=== PATIENT | female | born 1980 | race Caucasian/White ===

== ENCOUNTER 2016-09-23 11:02 | Inpatient (IN) | payer MEDICAID ==
[~2016-09-23] VITALS: Ht 167.6 cm; Wt 87.0 kg
[2016-09-23] MEDS ORDERED: HYDROCORTISONE SOD SUCC 100 MG/2ML INJ VIAL IV ONE (13:15)
[2016-09-23] MEDS ORDERED: HYDROmorphone HCL 2 MG/ML VL IV ONE ×2 (13:15→17:00)
[2016-09-23] MEDS ORDERED: ONDANSETRON HCL 4 MG/2 ML VIAL IV ONE ×2 (13:15→17:00)
[2016-09-23] MEDS ORDERED: SODIUM CHLORIDE 0.9% 1,000 ML IVB ONE (13:15)
[2016-09-23 13:21] LABS: Urine RBC None Seen /hpf (0 - 4)
[2016-09-23 13:25] LABS: Basophils # (auto) 0 uL; Basophils % (auto) 0.2 % (0.0-2.0); DEFINITIVE VIEW TRANSMISSION; Eosinophils # (auto) 0.6 uL; Hematocrit 41.6 % (36.0-46.0); Hemoglobin 13.8 g/dL (12.2-16.2); Lymphocytes # (auto) 1.6 uL; Mean Corpuscular Hemoglobin 26.4 pg (28.0-32.0); Mean Corpuscular Hgb Conc. 33.3 g/dL (32.0-36.0); Mean Corpuscular Volume 79.3 fL (80.0-100.0); Mean Platelet Volume 7.5 fL (7.4-10.4); Monocytes # (auto) 0.7 uL; Monocytes % (auto) 7.2 % (0.0-12.0); Neutrophils # (auto) 6.5 uL; Neutrophils % (auto) 69.6 % (37.0-80.0); Platelet Count (auto) 350 10^3/uL (140-450); Red Cell Distribution Width 15.5 % (11.6-16.0); White Blood Cell 9.3 10^3/uL (4.4-10.8)
[2016-09-23 13:39] LABS: INR 1.05 (0.9-1.15); Partial Thromboplastin Time 31.3 sec (22.64-33.71); Prothrombin Time 11.4 sec (9.37-12.3)
[2016-09-23 13:44] LABS: Urine Bilirubin Negative (Negative); Urine Blood Negative /uL (Negative); Urine Color Brown (Yellow); Urine Glucose Normal (Normal); Urine Mucus MANY (None Seen); Urine Nitrite Negative (Negative)
[2016-09-23 13:46] LABS: Urine Ketone 1+ (Negative)
[2016-09-23 13:47] LABS: Albumin 3.8 g/dL (3.4-5.0); BUN/Creatinine Ratio 20.9; Bilirubin, Total 0.7 mg/dL (0.2-1.0); Potassium 3.3 mmol/L (3.5-5.1); Total Protein 7.8 g/dL (6.4-8.2)
[2016-09-23] MEDS ORDERED: ONDANSETRON HCL 4 MG/2 ML VIAL ONE (16:58)
[2016-09-23] MEDS ORDERED: MORPHINE SULF INJ 2 MG/ML SYRINGE 1ML IV PRN (17:30)
[2016-09-23] MEDS ORDERED: METOCLOPRAMIDE HCL 5MG/ml INJ 2ml VIAL IV PRN (17:30)
[2016-09-23] MEDS ORDERED: ACETAMINOPHEN 325 MG TAB PO PRN (17:30)
[2016-09-23] MEDS ORDERED: HYDROcodone-ACET 5/325MG TAB PO PRN (17:30)
[2016-09-23] MEDS ORDERED: NITROGLYCERIN 0.4 MG SL TAB SL PRN (17:30)
[2016-09-23] MEDS ORDERED: DOCUSATE SOD 100 MG CAP PO PRN (17:30)
[2016-09-23] MEDS: SODIUM CHLORIDE 0.9% 1,000 ML IV SCH (19:00)
[2016-09-23 19:30] VITALS: BP 104/64
[2016-09-23] MEDS ORDERED: OXYCODONE W/ ACETAMINOPHEN 5/325MG TABLET PO PRN (20:00)
[2016-09-23] MEDS: HYDROmorphone HCL 2 MG/ML VL IV PRN (20:58)
[2016-09-23] MEDS: ONDANSETRON HCL 4 MG/2 ML VIAL IV PRN (20:58)
[2016-09-23] MEDS ORDERED: cefTRIAXone 1GM/50ML D5W 50 ML IV SCH (21:00)
[2016-09-24] MEDS: ONDANSETRON HCL 4 MG/2 ML VIAL IV PRN ×3 (01:04→09:19)
[2016-09-24] MEDS: HYDROmorphone HCL 2 MG/ML VL IV PRN ×3 (01:04→09:18)
[2016-09-24] MEDS: SODIUM CHLORIDE 0.9% 1,000 ML IV SCH (03:16)
[2016-09-24 05:00] VITALS: BP 90/55
[2016-09-24 06:50] LABS: Basophils # (auto) 0 uL; Basophils % (auto) 0.5 % (0.0-2.0); DEFINITIVE VIEW TRANSMISSION; Eosinophils # (auto) 1.1 uL; Eosinophils % (auto) 12.7 % (0.0-7.0); Hemoglobin 12.4 g/dL (12.2-16.2); Lymphocytes # (auto) 3.2 uL; Lymphocytes % (auto) 36.2 % (10.0-50.0); Mean Corpuscular Hemoglobin 26.4 pg (28.0-32.0); Mean Corpuscular Hgb Conc. 32.6 g/dL (32.0-36.0); Mean Corpuscular Volume 80.9 fL (80.0-100.0); Mean Platelet Volume 7.7 fL (7.4-10.4); Monocytes # (auto) 0.8 uL; Monocytes % (auto) 9.1 % (0.0-12.0); Neutrophils # (auto) 3.7 uL; Neutrophils % (auto) 41.5 % (37.0-80.0); Platelet Count (auto) 353 10^3/uL (140-450); Red Cell Distribution Width 15.6 % (11.6-16.0)
[2016-09-24 07:09] LABS: Albumin 2.9 g/dL (3.4-5.0); Potassium 3.5 mmol/L (3.5-5.1)
[2016-09-24 07:12] LABS: Bilirubin, Total 0.4 mg/dL (0.2-1.0); Total Protein 6.5 g/dL (6.4-8.2)
[2016-09-24 09:00] VITALS: BP 99/52
[2016-09-24] MEDS ORDERED: DOXY-216 PO (10:43)
[2016-09-24 11:36] VITALS: BP 99/52
== END 2016-09-24 13:00 | disposition home or self-care (01) | DRG 144 ==
LOC: ER 11:12 → EAST 11:13
PROVIDERS: ADMIT Internal Medicine; ATTEND Internal Medicine
DX: J20.9 Acute bronchitis, unspecified (principal); J18.9 Pneumonia, unspecified organism; M32.9 Systemic lupus erythematosus, unspecified; E27.1 Primary adrenocortical insufficiency; R56.9 Unspecified convulsions; J45.909 Unspecified asthma, uncomplicated; S83.92XA Sprain of unspecified site of left knee, initial encounter; W18.30XA Fall on same level, unspecified, initial encounter; Y93.01 Activity, walking, marching and hiking; S80.02XA Contusion of left knee, initial encounter; X58.XXXA Exposure to other specified factors, initial encounter; R91.1 Solitary pulmonary nodule; M79.7 Fibromyalgia; Z81.8 Family history of other mental and behavioral disorders; Z82.62 Family history of osteoporosis; Z82.49 Family history of ischemic heart disease and other diseases of the circulatory system; Z84.89 Family history of other specified conditions; Z83.49 Family history of other endocrine, nutritional and metabolic diseases; Z88.2 Allergy status to sulfonamides; Z88.8 Allergy status to other drugs, medicaments and biological substances; Y92.89 Other specified places as the place of occurrence of the external cause; Y99.8 Other external cause status
CPT/HCPCS: 36415; 71010; 73562; 74176; 80053; 81001; 81025; 82150; 82962; 83605; 83690; 83735; 85025; 85610; 85730; 87040; 94761; 96361; 96372; 96374; 96375; J0696; J2405

== ENCOUNTER 2016-10-20 10:09 | Emergency (ER) | payer MEDICAID ==
[~2016-10-20] VITALS: Ht 167.6 cm; Wt 88.5 kg
[~2016-10-20 10:09] MED LIST: DOXY-216 PO
[2016-10-20 10:44] LABS: Basophils # (auto) 0 uL; Basophils % (auto) 0.4 % (0.0-2.0); CONDITION AutoValidated; DEFINITIVE SEE PRINTOUT; Eosinophils # (auto) 0.3 uL; Eosinophils % (auto) 4.8 % (0.0-7.0); Hematocrit 39.5 % (36.0-46.0); Hemoglobin 13.2 g/dL (12.2-16.2); Lymphocytes # (auto) 1.6 uL; Lymphocytes % (auto) 28.1 % (10.0-50.0); Mean Corpuscular Hemoglobin 26.8 pg (28.0-32.0); Mean Corpuscular Hgb Conc. 33.4 g/dL (32.0-36.0); Mean Platelet Volume 7.6 fL (7.4-10.4); Monocytes # (auto) 0.6 uL; Monocytes % (auto) 9.8 % (0.0-12.0); Neutrophils # (auto) 3.2 uL; Neutrophils % (auto) 56.9 % (37.0-80.0); Platelet Count (auto) 306 10^3/uL (140-450); Red Cell Distribution Width 17.1 % (11.6-16.0); White Blood Cell 5.6 10^3/uL (4.4-10.8)
[2016-10-20 11:13] VITALS: BP 115/69
[2016-10-20 11:14] LABS: Albumin 3.3 g/dL (3.4-5.0); BUN/Creatinine Ratio 14.5; Bilirubin, Total 0.4 mg/dL (0.2-1.0); Calcium 8.4 mg/dL (8.5-10.1); Magnesium 2.4 mg/dL (1.6-2.6); Potassium 3.2 mmol/L (3.5-5.1); Total Protein 6.5 g/dL (6.4-8.2)
[2016-10-20] MEDS ORDERED: POTASSIUM CHL 10% (20 MEQ/15ML) ORAL SOLN PO ONE (11:30)
[2016-10-20] MEDS ORDERED: LIDOCAINE 1% HCL (LOCAL ANESTH.) INJ 20ML MDV ONE (11:48)
[2016-10-20] MEDS ORDERED: LIDOCAINE HCL 1 % PF INJ 2ML AMP IJ ONE (12:00)
[2016-10-20] MEDS ORDERED: HYDROmorphone HCL 2 MG/ML VL IM ONE (12:15)
[2016-10-20] MEDS ORDERED: ONDANSETRON HCL 4 MG/2 ML VIAL IM ONE (12:15)
[2016-10-20] MEDS ORDERED: LIDOCAINE 1% HCL (LOCAL ANESTH.) INJ 20ML MDV IJ ONE (12:15)
== END 2016-10-20 13:14 | disposition home or self-care (01) ==
LOC: EDBD 10:09 → ER 10:12
DX: S41.112A Laceration without foreign body of left upper arm, initial encounter (principal); M32.9 Systemic lupus erythematosus, unspecified; Z88.8 Allergy status to other drugs, medicaments and biological substances; Z88.1 Allergy status to other antibiotic agents; R55 Syncope and collapse; Z79.899 Other long term (current) drug therapy; Z90.49 Acquired absence of other specified parts of digestive tract; R53.1 Weakness; W18.39XA Other fall on same level, initial encounter; Y93.89 Activity, other specified; Y99.8 Other external cause status; Y92.89 Other specified places as the place of occurrence of the external cause
CPT/HCPCS: 12002; 36415; 70450; 73060; 80053; 83735; 84484; 85025; 93005; 96372; 99285; J1170; J2001; J2405

== ENCOUNTER 2017-01-28 21:02 | Emergency (ER) | payer MEDICAID ==
[~2017-01-28] VITALS: Ht 167.6 cm; Wt 86.2 kg
[2017-01-28] MEDS ORDERED: ONDANSETRON HCL 4 MG/2 ML VIAL IV ONE ×2 (21:45→23:00)
[2017-01-28] MEDS ORDERED: SODIUM CHLORIDE 0.9% 1,000 ML IV ONE (21:45)
[2017-01-28] MEDS ORDERED: HYDROmorphone HCL 2 MG/ML VL IV ONE ×2 (21:45→23:00)
[2017-01-28 21:52] LABS: Basophils # (auto) 0 uL; Basophils % (auto) 0.3 % (0.0-2.0); Eosinophils # (auto) 0.2 uL; Eosinophils % (auto) 2.4 % (0.0-7.0); Hematocrit 46.1 % (36.0-46.0); Hemoglobin 15.1 g/dL (12.2-16.2); Lymphocytes # (auto) 2.5 uL; Lymphocytes % (auto) 27.4 % (10.0-50.0); Mean Corpuscular Hemoglobin 27.9 pg (28.0-32.0); Mean Corpuscular Hgb Conc. 32.8 g/dL (32.0-36.0); Mean Corpuscular Volume 85.2 fL (80.0-100.0); Mean Platelet Volume 8.2 fL (6.9-10.8); Monocytes # (auto) 0.7 uL; Neutrophils # (auto) 5.8 uL; Neutrophils % (auto) 61.9 % (37.0-80.0); Nucleated Red Blood Cells % 0.1 %; Platelet Count (auto) 351 10^3/uL (140-450); Red Cell Distribution Width 17.4 % (11.8-14.3); White Blood Cell 9.3 10^3/uL (4.4-10.8)
[2017-01-28 21:58] LABS: INR 0.98 (0.9-1.15); Prothrombin Time 10.7 sec (9.37-12.3)
[2017-01-28 22:10] LABS: B-Type Natriuretic Peptide 6.6 pg/mL (0-100); Temperature: 22.4 C (20.0-25.0)
[2017-01-28 22:31] LABS: Albumin 4.1 g/dL (3.4-5.0); Anion Gap 9 (5-15); Blood Urea Nitrogen 13 mg/dL (7-18); Calcium 9.2 mg/dL (8.5-10.1); Carbon Dioxide 26 mmol/L (21-32); Chloride 108 mmol/L (98-107); Glucose 87 mg/dL (74-106); Magnesium 2.5 mg/dL (1.6-2.6); Potassium 4.2 mmol/L (3.5-5.1); Sodium 143 mmol/L (136-145)
[2017-01-28 22:43] LABS: Alkaline Phosphatase 53 U/L (45-117); Aspartate Aminotransferase 15 U/L (15-37); BUN/Creatinine Ratio 18.6; Bilirubin, Total 0.5 mg/dL (0.2-1.0); GFR African American 121 mL/min; GFR Non-African American 100 mL/min; Total Protein 7.5 g/dL (6.4-8.2)
[2017-01-28] MEDS ORDERED: ONDANSETRON HCL 4 MG/2 ML VIAL ONE (22:54)
[2017-01-28] MEDS ORDERED: HYDROmorphone HCL 2 MG/ML VL ONE (22:54)
[2017-01-29 02:00] LABS: Urine Bilirubin Negative (Negative); Urine Blood Negative /uL (Negative); Urine Color Yellow (Yellow); Urine Glucose Normal (Normal); Urine Ketone Negative (Negative); Urine Mucus MODERATE (None Seen); Urine Nitrite Negative (Negative); Urine RBC 1 /hpf (0 - 4); Urine Squamous Epithelial Cell MOD /hpf (<5); Urine Urobilinogen Normal (Negative)
[2017-01-29 02:10] VITALS: BP 133/72
== END 2017-01-29 02:31 | disposition left against medical advice (07) ==
LOC: ER 21:02
DX: S41.111A Laceration without foreign body of right upper arm, initial encounter (principal); R55 Syncope and collapse; F19.10 Other psychoactive substance abuse, uncomplicated; J45.909 Unspecified asthma, uncomplicated; Z90.49 Acquired absence of other specified parts of digestive tract; Z88.2 Allergy status to sulfonamides; Z87.11 Personal history of peptic ulcer disease; Z53.29 Procedure and treatment not carried out because of patient's decision for other reasons
CPT/HCPCS: 36415; 74176; 80053; 80307; 81001; 83690; 83735; 83880; 84443; 84484; 84702; 85025; 85610; 85730; 93005; 96361; 96374; 96375; 96376; 99285; J1170; J2405; J7030

== ENCOUNTER 2024-11-30 11:14 | Inpatient (IN) | payer MEDICAID ==
[~2024-11-30] VITALS: Ht 167.6 cm; Wt 94.0 kg
[~2024-11-30 11:14] MED LIST changes: -DOXY-216 PO; +DOXY-286 PO
--- NOTE | 2024-11-30 12:30 | ED.PDOC ---
General HPI Comments 44y F who presents to the ED for chief complaint of hematuria. Pt states she has been having hematuria with associated blood clots for the past 2x days. Pt states she has noted increased pain with associated dysuria, and frequency today and came to the ED for further evaluation. Pt in the ED, has noted LLQ pain radiating the L lower pelvic area. Pt rates the pain 10/10 and in noted distress. Pt otherwise denies any other symptoms. Pt is noted to be tachycardic at 124 and noted BP of 156/75 but otherwise stable vitals. Pt has noted autoimmune history including SLE, polymyalgia, and fibromyalgia. Chief Complaint: Urinary Time Seen by MD: 11:33 Primary Care Provider: DR Crispin ADKINS Reviewed notes: Medications, Allergies Allergies: Coded Allergies: Ciprofloxacin (Verified Allergy, Unknown, 11/30/24) Diphenhydramine (Verified Allergy, Unknown, 05/13/14) Hydroxychloroquine (Verified Allergy, Unknown, 05/13/14) Prochlorperazine (Verified Allergy, Unknown, 05/13/14) Sulfa Antibiotics (Verified Allergy, Unknown, 05/13/14) Uncoded Allergies: ANTIEMETICS (Allergy, Severe, 11/30/24) Home Meds Active Scripts Doxycycline Hyclate (DOXYCYCLINE HYCLATE) 100 Mg Tab, 1 TAB PO BID, #14 TAB Prov:ISRAEL JOSEPH MD 09/24/16 Information Source: Patient Mode of Arrival: Ambulatory Brought in by: self Past Medical History PAST MEDICAL HISTORY: Anxiety, Asthma, PUD, Seizures Surgical History: Cholecystectomy 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 History Family History Family History: No family hx of HTN, Unobtainable Social History Smoker: Non-Smoker Alcohol: Denies ETOH Use Drugs: Denies Drug Use Lives In: Home Constitutional: denies: chills, diaphoresis, fatigue, fever, malaise, sweats, weakness, others EENTM: denies: blurred vision, double vision, ear bleeding, ear discharge, ear drainage, ear pain, ear ringing, eye pain, eye redness, hearing loss, mouth pain, mouth swelling, nasal discharge, nose bleeding, nose congestion, nose pain, photophobia, tearing, throat pain, throat swelling, voice changes, others Respiratory: denies: cough, hemoptysis, orthopnea, SOB at rest, shortness of breath, SOB with excertion, stridor, wheezing, others Cardiovascular: denies: chest pain, dizzy spells, diaphoresis, Dyspnea on exertion, edema, irregular heart beat, left arm pain, lightheadedness, palpitations, PND, syncope, others Gastrointestinal: denies: abdomen distended, abdominal pain, blood streaked bowels, constipated, diarrhea, dysphagia, difficulty swallowing, hematemesis, melena, nausea, poor appetite, poor fluid intake, rectal bleeding, rectal pain, vomiting, others Genitourinary: reports: hematuria; denies: abnormal vagina bleeding, burning, dyspareunia, dysuria, flank pain, frequency, incontinence, pain, , vagina discharge, urgency, others Neurological: denies: dizziness, fainting, headache, left sided numbness, left sided weakness, numbness, paresthesia, pre-existing deficit, right sided numbness, right sided weakness, seizure, speech problems, tingling, tremors, weakness, others Musculoskeletal: denies: back pain, gout, joint pain, joint swelling, muscle pain, muscle stiffness, neck pain, others Integumetry: denies: bruises, change in color, change in hair/nails, dryness, laceration, lesions, lumps, rash, wounds, others Allergic/Immunocompromised: denies: Difficulty Healing, Frequent Infections, Hives, Itching, others Hematologic/Lymphatic: denies: anemia, blood clots, easy bleeding, easy bruising, swollen glands, others Endocrine: denies: excessive hunger, excessive sweating, excessive thirst, excessive urination, flushing, intolerance to cold, intolerance to heat, unexplained weight gain, unexplained weight loss, others Psychiatric: denies: anxiety, bipolar disorder, depression, hopeless, panic disorder, schizophrenia, sleepless, suicidal, others All Other Systems: Reviewed and Negative Physical Exam General Appearance: Moderate Distress HEENT: Normal ENT Inspection, Pharynx Normal, TMs Normal Neck: Full Range of Motion, Non-Tender, Normal, Normal Inspection Respiratory: Lungs Clear Cardiovascular: No Edema, No JVD, No Murmur, No Gallop, Normal Peripheral Pulses, Regular Rate/Rhythm Breast Exam: Deferred Gastrointestinal: Tenderness (LLQ tender to palpation, diffuse abdominal tenderness), Other Genitalia: Deferred Pelvic: Deferred Rectal: Deferred Extremities: No calf tenderness, Normal capillary refill, Normal inspection, Normal range of motion, Non-tender, No pedal edema Musculoskeletal : Apperance: Normal Neurologic: Alert, 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 Was a procedure done?: No Differential Diagnosis Kidney stone (Female): Musculoskeletal pain, Pyelonephritis, Strain, Urolithia sis Urinary Problem (Female): Pyelonephritis, Urinary retention, Urolithiasis, UTI, Other (hydronephrosis) X-Ray, Labs, Meds, VS Vital Signs Date Time Temp Pulse Resp B/P (MAP) Pulse Ox O2 Delivery O2 Flow Rate FiO2 11/30/24 11:28 99.7 124 16 156/75 (102) 97 99.7 Lab Test 11/30/24 12:46 11/30/24 11:15 Range/Units White Blood Count 9.8 4.4-10.8 10^3/uL Red Blood Count 5.40 H 4.0-5.20 10^6/uL Hemoglobin 14.8 12.2-16.2 g/dL Hematocrit 45.2 36.0-46.0 % Mean Corpuscular Volume 83.6 80.0-100.0 fL Mean Corpuscular Hemoglobin 27.4 L 28.0-32.0 pg Mean Corpuscular Hemoglobin Concent 32.8 32.0-36.0 g/dL Red Cell Distribution Width 17.0 H 11.8-14.3 % Platelet Count 310 140-450 10^3/uL Mean Platelet Volume 8.5 6.9-10.8 fL Neutrophils (%) (Auto) 56.4 37.0-80.0 % Lymphocytes (%) (Auto) 30.5 10.0-50.0 % Monocytes (%) (Auto) 7.2 0.0-12.0 % Eosinophils (%) (Auto) 5.4 0.0-7.0 % Basophils (%) (Auto) 0.5 0.0-2.0 % Neutrophils # (Auto) 5.5 1.6-8.6 10 ^3/uL Lymphocytes # (Auto) 3.0 0.4-5.4 10 ^3/uL Monocytes # (Auto) 0.7 0-1.3 10 ^3/uL Eosinophils # (Auto) 0.5 0-0.8 10 ^3/uL Basophils # (Auto) 0 0-0.2 10 ^3/uL Nucleated Red Blood Cells 0.2 % Sodium Level 142 136-145 mmol/L Potassium Level 4.0 3.5-5.1 mmol/L Chloride Level 106 98-107 mmol/L Carbon Dioxide Level 26 20-31 mmol/L Anion Gap 10 5-15 Blood Urea Nitrogen 19 9-23 mg/dL Creatinine 0.69 0.550-1.02 mg/dL Glomerular Filtration Rate Calc 109 >90 mL/min BUN/Creatinine Ratio 27.5 H 10.0-20.0 Serum Glucose 94 74-106 mg/dL Calcium Level 10.1 8.7-10.4 mg/dL Urine Color Red H Yellow Urine Clarity Cloudy H Clear Urine pH 7.5 5.0-9.0 Urine Specific [place] 1.030 1.001-1.035 Urine Protein 2+ H Negative Urine Ketones Negative Negative Urine Blood 3+ H Negative /uL Urine Nitrite Negative Negative Urine Bilirubin Negative Negative Urine Urobilinogen Normal Negative mg/dL Urine Leukocyte Esterase 1+ Negative /uL Urine RBC 25703 0 - 4 /hpf Urine Microscopic WBC 14 H 0-5 /HPF Urine Squamous Epithelial Cells Mod <5 /hpf Urine Bacteria Few H None Seen /hpf Urine Glucose Normal Normal mg/dL Urine Test Negative Negative Current Medications Medications (Trade) Dose Ordered Sig/Emerson Route Start Time Stop Time Status Last Admin Hydrocortisone Sodium Succinate (Solu-CORTEF INJECTION) 100 mg ONCE ONCE IV 11/30/24 12:30 11/30/24 12:31 DC 11/30/24 13:33 Hydromorphone HCl (Dilaudid Tablet) 2 mg ONCE ONCE PO 11/30/24 12:30 11/30/24 12:31 DC 11/30/24 13:24 Ondansetron HCl (Zofran Po) 4 mg ONCE ONCE PO 11/30/24 12:30 11/30/24 12:31 DC 11/30/24 13:24 Sodium Chloride 1,800 ml @ 1,800 mls/hr ONCE ONCE IV 11/30/24 13:30 11/30/24 14:29 DC 11/30/24 14:16 Hydromorphone HCl (Dilaudid Tablet) 2 mg ONCE ONCE PO 11/30/24 13:45 11/30/24 13:46 DC 11/30/24 13:[address] [address] Ph: [phone] DIAGNOSTIC IMAGING Diagnostic Imaging Report : [id number] Signed PATIENT: LEILANI POLLACK EACCT: [id number] UNIT: [id number] : 1980 LOC: ER ROOM / BED: / AGE / SEX: 44 / F ADM STATUS: REG ER SERVICE 1217 ORDERING PHYSICIAN: ANDREAS SHAY MD PROCEDURE(s): ABPL - CT AB PEL WO CON-NO ORAL OR IV REASON: left flank pain, hematuria ORDER NUMBER(s): [id number], ACCESSION NUMBER(s): [id number] CT CT AB PEL WO CON-NO ORAL OR IV INDICATION: left flank pain, hematuria EXAM DATE: 11/30/2024 02:58 PM COMPARISON: None RADIATION DOSE: CTDIvol: 17 mGy, DLP: 1060 mGy*cm PROCEDURE: Helical CT images were obtained of the abdomen and pelvis without IV contrast Sagittal and coronal reconstructions are provided. ORAL CONTRAST: None. ADDITIONAL IMAGES / REFORMATS: None All CT scans at this medical facility are performed using dose modulation techniques as appropriate to a performed exam including the following: Automated exposure control was utilized; adjustment of the MA and/or KV according to patient size; and use of iterative reconstruction technique. FINDINGS: LUNG BASE: Normal. LIVER: Normal. GALLBLADDER AND BILIARY TREE: Cholecystectomy clips. No intra- or extrahepatic biliary ductal dilation. PANCREAS: Normal. SPLEEN: Normal. BOWEL: Normal. Normal appendix. ADRENALS: Normal. KIDNEYS AND URETER: Normal. BLADDER: Normal. REPRODUCTIVE ORGANS: Normal. LYMPH NODES:No lymphadenopathy. PERITONEUM: No ascites or free air. No other fluid collection. VESSELS: Scattered atherosclerotic calcifications are noted. RETROPERITONEUM: Normal. ABDOMINAL WALL: Normal. BONES: Scattered osseous degenerative changes are noted. IMPRESSION: No acute intraabdominal abnormality. No kidney stones are seen. ATED BY: ESTIVEN WILLARD MD DICTATED DATE/TIME: 11/30/241534 SIGNED BY: ESTIVEN WILLARD MD SIGNED DATE/TIME: 11/30/241534 CC: Time of 1ST Reevaluation: 16:11 Reevaluation 1ST: Improved Patient Education/Counseling: Diagnosis, Treatment, Prognosis, Need For Follow Up Family Education/Counseling: No Family Present Comments pt does not have evidence of pyelnephritis or stones on ct. however, her contaminated UA shows possible uti. she continues to have pain and is unable to keep oral intake, including her hydrocortisone for adrenal insufficiency. she will be admitted for ivf, control of nausea and pain and preventing adrenal crisis SEPSIS Sepsis Screen Date sepsis recognized/suspect: Nov 30, 2024 Time Sepsis recognized/suspect: 1113 Recent Procedure: No On Antibiotic Therapy: No Respiratory Rate >20: No Heart Rate >90: Yes Temp<36 C (96.8 F) or >38.3 C: No SBP <90 or MAP <65 mmHG: No New Acute Mental Status Change: No Is the patient on CPAP, BIPAP,: No Physician Orders Ct Ab Pel Wo Con-No Oral Or Iv (11/30/24 12:17) Insert Midline (11/30/24 13:54) Vital Signs Date Time Temp Pulse Resp B/P (MAP) Pulse Ox O2 Delivery O2 Flow Rate FiO2 11/30/24 11:28 99.7 124 16 156/75 (102) 97 99.7 Laboratory Tests Test 11/30/24 12:46 White Blood Count 9.8 10^3/uL (4.4-10.8) Medications Medications Dose Ordered Sig/Emerson Route Start Time Stop Time Status Last Admin Dose Admin Hydrocortisone Sodium Succinate 100 mg ONCE ONCE IV 11/30/24 12:30 11/30/24 12:31 DC 11/30/24 13:33 Hydromorphone HCl 2 mg ONCE ONCE PO 11/30/24 12:30 11/30/24 12:31 DC 11/30/24 13:24 Hydromorphone HCl 2 mg ONCE ONCE PO 11/30/24 13:45 11/30/24 13:46 DC 11/30/24 13:51 Ondansetron HCl 4 mg ONCE ONCE PO 11/30/24 12:30 11/30/24 12:31 DC 11/30/24 13:24 Sodium Chloride 1,800 ml @ 1,800 mls/hr ONCE ONCE IV 11/30/24 13:30 11/30/24 14:29 DC 11/30/24 14:16 Departure 1 Departure Time of Disposition: 16:12 Impression: Primary Impression: Intractable nausea and vomiting Additional Impressions: Intractable pain Hemorrhagic cystitis Adrenal insufficiency Disposition: ADMITTED INPATIENT Admit to: Med Surg Condition: Serious Discharged With: Self Critical Care Note Critical Care Time?: Yes (55 min-critical care time only) Critical care comment: Due to concerns for patients condition deteriorating, the care required my highest level of attention and readiness to intervene. I assessed the patient, reviewed the medical records, ordered the appropriate tests and treatments, then reassessed for results and responsiveness. I communicated with medical personnel and consultants and formulated a plan of care. Total critical care time excludes any procedures Stability Stability form required: No Heart Score Heart Score: Heart Score Response (Comments) Value History N/A 0 EKG N/A 0 Age N/A 0 Risk Factors N/A 0 Troponin N/A 0 Total 0 I personally scribed for ANDREAS SHAY MD ([email or web address]) on 11/30/24 at 12:30. Electronically submitted by Lizzie Mcguire ([email or web address]). I personally scribed for ANDREAS SHAY MD ([email or web address]) on 11/30/24 at 12:31. Electro nically submitted by Lizzie Mcguire ([email or web address]). I personally scribed for ANDREAS SHAY MD ([email or web address]) on 11/30/24 at 16:07. Erum ctronically submitted by Lizzie Mcguire ([email or web address]). ANDREAS SHAY MD Nov 30, 2024 12:30
[2024-11-30 13:01] LABS: Hematocrit 45.2 % (36.0-46.0); Hemoglobin 14.8 g/dL (12.2-16.2); Mean Corpuscular Hemoglobin 27.4 pg (28.0-32.0); Mean Corpuscular Volume 83.6 fL (80.0-100.0); Nucleated Red Blood Cells % 0.2 %
[2024-11-30 13:10] LABS: Chloride 106 mmol/L (98-107); Potassium 4.0 mmol/L (3.5-5.1); Sodium 142 mmol/L (136-145)
[2024-11-30 13:11] LABS: Anion Gap 10 (5-15); Calcium 10.1 mg/dL (8.7-10.4); Carbon Dioxide 26 mmol/L (20-31)
[2024-11-30 13:16] LABS: BUN/Creatinine Ratio 27.5 (10.0-20.0); Blood Urea Nitrogen 19 mg/dL (9-23); Glucose 94 mg/dL (74-106)
[2024-11-30] MEDS: ONDANSETRON ODT 4 MG TAB PO ONE (13:24)
[2024-11-30] MEDS: HYDROCORTISONE SOD SUCC 100 MG/2ML INJ VIAL IV ONE (13:33)
[2024-11-30] MEDS: SODIUM CHLORIDE 0.9% 1,800 ML IV ONE (14:16)
[2024-11-30 14:35] LABS: Urine Protein, UAD 2+ (Negative)
--- NOTE | 2024-11-30 15:37 | DVH ---
CT CT AB PEL WO CON-NO ORAL OR IV INDICATION: left flank pain, hematuria EXAM DATE: 11/30/2024 02:58 PM COMPARISON: None RADIATION DOSE: CTDIvol: 17 mGy, DLP: 1060 mGy*cm PROCEDURE: Helical CT images were obtained of the abdomen and pelvis without IV contrast Sagittal and coronal reconstructions are provided. ORAL CONTRAST: None. ADDITIONAL IMAGES / REFORMATS: None All C T scans at this medical facility are performed using dose modulation techniques as appropriate to a p erformed exam including the following: Automated exposure control was utilized; adjustment of the MA and/or KV according to patient size; and use of iterative reconstruction technique. FINDINGS: LUNG BASE: Normal. LIVER: Normal. GALLBLADDER AND BILIARY TREE: Cholecystectomy clips. No intra- or extrahepatic biliary ductal dilatio n. PANCREAS: Normal. SPLEEN: Normal. BOWEL: Normal. Normal appendix. ADRENALS: Normal. KIDNEYS AND URETER: Normal. BLADDER: Normal. REPRODUCTIVE ORGANS: Normal. LYMPH NODES:No lymphadenopathy. PERITONEUM: No ascites or free air. No other fluid collection. VESSELS: Scattered atherosclerotic calcifications are noted. RETROPERITONEUM: Normal. ABDOMINAL WALL: Normal. BONES: Scattered osseous degenerative changes are noted. IMPRESSION: No acute intraabdominal abnormality. No kidney stones are seen.
[2024-11-30 17:00] VITALS: PULSE 89; RESP 20; O2SAT 98
[2024-11-30] MEDS ORDERED: DOCUSATE SOD 100 MG CAP PO PRN (18:30)
[2024-11-30] MEDS ORDERED: KETOROLAC TROMETH 30 MG/ML 1ML VIAL IV PRN (18:30)
[2024-11-30] MEDS ORDERED: ACETAMINOPHEN 325 MG TAB PO PRN ×2 (18:30)
--- NOTE | 2024-11-30 18:36 | DVHHP2 ---
Admitting Diagnosis: Intractable nausea and vomiting History of Present Illness 44y F who presents to the ED for chief complaint of hematuria. Pt states she has been having hematuria with associated blood clots for the past 2x days. Pt states she has noted increased pain with associated dysuria, and frequency today and came to the ED for further evaluation. Pt in the ED, has noted LLQ pain radiating the L lower pelvic area. Pt rates the pain 10/10 and in noted dis tress. Pt otherwise denies any other symptoms. Pt is noted to be tachycardic at 124 and noted BP of 156/75 but otherwise stable vitals. Pt has noted autoimmune history including SLE, polymyalgia, and fibromyalgia. 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 History Family History Family History: No family hx of HTN, Unobtainable Social History Smoker: Non-Smoker Alcohol: Denies ETOH Use Drugs: Denies Drug Use Lives In: Home Patient Family History: Family history: Autoimmune disease (situation) G8 MOTHER Family history: Blood disorder G8 MOTHER G8 FATHER Family history: Cardiovascular disease G8 MOTHER Family history: Depression (situation) G8 MOTHER Family history: Osteoporosis G8 MOTHER Family history: Thyroid disorder G8 MOTHER G8 FATHER Allergies: Coded Allergies: Ciprofloxacin (Verified Allergy, Unknown, 11/30/24) Diphenhydramine (Verified Allergy, Unknown, 05/13/14) Hydroxychloroquine (Verified Allergy, Unknown, 05/13/14) Prochlorperazine (Verified Allergy, Unknown, 05/13/14) Sulfa Antibiotics (Verified Allergy, Unknown, 05/13/14) Uncoded Allergies: ANTIEMETICS (Allergy, Severe, 11/30/24) Home Meds Active Scripts Doxycycline Hyclate (DOXYCYCLINE HYCLATE) 100 Mg Tab, 1 TAB PO BID, #14 TAB Prov:ISRAEL JOSEPH MD 09/24/16 Vital Signs Vital Signs Date Time Temp Pulse Resp B/P (MAP) Pulse Ox O2 Delivery O2 Flow Rate FiO2 11/30/24 11:28 99.7 124 16 156/75 (102) 97 99.7 Physical Exam 44 years old woman, overweight, sitting on chair. Mild distress HEENT-atraumatic, normocephalic Heart-sinus tachycardic Lungs clear to auscultate bilaterally Abdomen soft diffuse tender lower abdomen, nondistended musculoskeletal-no edema cyanosis Neuro-AO x3, no focal deficits SEPSIS Sepsis Screen Date sepsis recognized/suspect: Nov 30, 2024 Time Sepsis recognized/suspect: 1113 Recent Procedure: No On Antibiotic Therapy: No Respiratory Rate >20: No Heart Rate >90: Yes Temp<36 C (96.8 F) or >38.3 C: No SBP <90 or MAP <65 mmHG: No New Acute Mental Status Change: No Is the patient on CPAP, BIPAP,: No Physician Orders Ct Ab Pel Wo Con-No Oral Or Iv (11/30/24 12:17) Insert Midline (11/30/24 13:54) Hydromorphone Tablet (Dilaudid Tablet) (11/30/24 18:30) Ketorolac Injection (Toradol Injection) (11/30/24 18:30) Acetaminophen Tablet (Tylenol Tablet) (11/30/24 18:30) Ceftriaxone Ivpb Rocephin (11/30/24 18:30) Urine Bacterial Culture (11/30/24 18:27) Admit (11/30/24 18:27) Code Status (11/30/24 18:27) Vital Signs .PER UNIT PROTOCOL (11/30/24 18:27) Review Orders With Adm. (11/30/24 18:27) Encourage Activity As Tolerate (11/30/24 18:27) Regular Diet (11/30/24 Dinner) Sodium Chloride Lock (Saline Lock Ns) (11/30/24 22:00) Docusate Sodium Capsule (Colace Capsule) (11/30/24 18:30) Acetaminophen Tablet (Tylenol Tablet) (11/30/24 18:30) Notify Md Of Changes From Base (11/30/24 18:27) Advance Directive (11/30/24 18:27) Patient Condition (11/30/24 18:27) Allergies (11/30/24 18:27) Ondansetron Hcl (Zofran) (11/30/24 18:30) Lovenox 40mg (12/01/24 10:00) Comprehensive Metabolic Panel (12/01/24 05:00) Comprehensive Metabolic Panel (12/02/24 05:00) Comprehensive Metabolic Panel (12/03/24 05:00) Comprehensive Metabolic Panel (12/04/24 05:00) Comprehensive Metabolic Panel (12/05/24 05:00) Complete Blood Count (12/01/24 05:00) Complete Blood Count (12/02/24 05:00) Complete Blood Count (12/03/24 05:00) Complete Blood Count (12/04/24 05:00) Complete Blood Count (12/05/24 05:00) Vital Signs Date Time Temp Pulse Resp B/P (MAP) Pulse Ox O2 Delivery O2 Flow Rate FiO2 11/30/24 11:28 99.7 124 16 156/75 (102) 97 99.7 Laboratory Tests Test 11/30/24 12:46 White Blood Count 9.8 10^3/uL (4.4-10.8) Medications Medications Dose Ordered Sig/Emerson Route Start Time Stop Time Status Last Admin Dose Admin Hydrocortisone Sodium Succinate 100 mg ONCE ONCE IV 11/30/24 12:30 11/30/24 12:31 DC 11/30/24 13:33 Hydromorphone HCl 2 mg ONCE ONCE PO 11/30/24 12:30 11/30/24 12:31 DC 11/30/24 13:24 Hydromorphone HCl 2 mg ONCE ONCE PO 11/30/24 13:45 11/30/24 13:46 DC 11/30/24 13:51 Ondansetron HCl 4 mg ONCE ONCE PO 11/30/24 12:30 11/30/24 12:31 DC 11/30/24 13:24 Sodium Chloride 1,800 ml @ 1,800 mls/hr ONCE ONCE IV 11/30/24 13:30 11/30/24 14:29 DC 11/30/24 14:16 Results Labs Test 11/30/24 12:46 11/30/24 11:15 Range/Units White Blood Count 9.8 4.4-10.8 10^3/uL Red Blood Count 5.40 H 4.0-5.20 10^6/uL Hemoglobin 14.8 12.2-16.2 g/dL Hematocrit 45.2 36.0-46.0 % Mean Corpuscular Volume 83.6 80.0-100.0 fL Mean Corpuscular Hemoglobin 27.4 L 28.0-32.0 pg Mean Corpuscular Hemoglobin Concent 32.8 32.0-36.0 g/dL Red Cell Distribution Width 17.0 H 11.8-14.3 % Platelet Count 310 140-450 10^3/uL Mean Platelet Volume 8.5 6.9-10.8 fL Neutrophils (%) (Auto) 56.4 37.0-80.0 % Lymphocytes (%) (Auto) 30.5 10.0-50.0 % Monocytes (%) (Auto) 7.2 0.0-12.0 % Eosinophils (%) (Auto) 5.4 0.0-7.0 % Basophils (%) (Auto) 0.5 0.0-2.0 % Neutrophils # (Auto) 5.5 1.6-8.6 10 ^3/uL Lymphocytes # (Auto) 3.0 0.4-5.4 10 ^3/uL Monocytes # (Auto) 0.7 0-1.3 10 ^3/uL Eosinophils # (Auto) 0.5 0-0.8 10 ^3/uL Basophils # (Auto) 0 0-0.2 10 ^3/uL Nucleated Red Blood Cells 0.2 % Sodium Level 142 136-145 mmol/L Potassium Level 4.0 3.5-5.1 mmol/L Chloride Level 106 98-107 mmol/L Carbon Dioxide Level 26 20-31 mmol/L Anion Gap 10 5-15 Blood Urea Nitrogen 19 9-23 mg/dL Creatinine 0.69 0.550-1.02 mg/dL Glomerular Filtration Rate Calc 109 >90 mL/min BUN/Creatinine Ratio 27.5 H 10.0-20.0 Serum Glucose 94 74-106 mg/dL Calcium Level 10.1 8.7-10.4 mg/dL Urine Color Red H Yellow Urine Clarity Cloudy H Clear Urine pH 7.5 5.0-9.0 Urine Specific [place] 1.030 1.001-1.035 Urine Protein 2+ H Negative Urine Ketones Negative Negative Urine Blood 3+ H Negative /uL Urine Nitrite Negative Negative Urine Bilirubin Negative Negative Urine Urobilinogen Normal Negative mg/dL Urine Leukocyte Esterase 1+ Negative /uL Urine RBC 64232 0 - 4 /hpf Urine Microscopic WBC 14 H 0-5 /HPF Urine Squamous Epithelial Cells Mod <5 /hpf Urine Bacteria Few H None Seen /hpf Urine Glucose Normal Normal mg/dL Urine Test Negative Negative Primary Diagnosis Acute cystitis Diffuse body pain 2' Diagnosis/Comorbidities SLE, polymyalgia, and fibromyalgia. Plan Start ceftriaxone 1 g daily. Check urine culture IV fluids Patient takes Dilaudid p.o. at home. Resume Dilaudid 2 mg q.4 hours, Tylenol for mild pain and ketorolac for moderate pain Antiemetic Full code PPI for GI prophylaxis Regular diet. Liquid diet if patient is half emesis Plan discussed with: Patient Date of Service: Nov 30, 2024 Billing Provider: KARL MCCABE MD Common Visit Codes: 96655-[id number] INP/OBS CARE (MOD) KARL MCCABE MD Nov 30, 2024 18:36
[2024-11-30] MEDS ORDERED: hydrALAZINE HCL 20 MG/ML VL IV PRN (18:45)
[2024-11-30] MEDS: cefTRIAXone 1GM/50ML D5W 50 ML IV SCH (19:30)
[2024-11-30] MEDS: SODIUM CHLOR 0.9% PF (SALINE LOCK) 10ML VIAL/SYR IV SCH (22:14)
[2024-12-01] VITALS (10 sets, daily range): BP systolic 115–138; BP diastolic 59–78; PULSE 77–88; RESP 16–20; TEMP 97.4–98.4; O2SAT 92–100
[2024-12-01 05:40] LABS: Hematocrit 39.8 % (36.0-46.0); Hemoglobin 12.9 g/dL (12.2-16.2); Mean Corpuscular Hemoglobin 27.4 pg (28.0-32.0); Mean Corpuscular Volume 84.4 fL (80.0-100.0); Nucleated Red Blood Cells % 0.0 %
[2024-12-01 05:57] LABS: Alanine Aminotransferase 13 U/L (7-40); Albumin 3.9 g/dL (3.2-4.8); Anion Gap 9 (5-15); BUN/Creatinine Ratio 31.0 (10.0-20.0); Blood Urea Nitrogen 18 mg/dL (9-23); Calcium 9.7 mg/dL (8.7-10.4); Carbon Dioxide 26 mmol/L (20-31); Chloride 107 mmol/L (98-107); Glucose 88 mg/dL (74-106); Potassium 3.5 mmol/L (3.5-5.1); Sodium 142 mmol/L (136-145); Total Protein 6.3 g/dL (5.7-8.2)
[2024-12-01 05:58] LABS: Bilirubin, Total 0.4 mg/dL (0.2-1.0)
[2024-12-01 06:00] LABS: Alkaline Phosphatase 43 U/L (46-116)
[2024-12-01] MEDS: ONDANSETRON HCL 4 MG/2 ML VIAL IV PRN (07:59)
[2024-12-01] MEDS: ACETAMINOPHEN 325 MG TAB PO SCH (08:45)
[2024-12-01] MEDS: ENOXAPARIN SOD 40 MG/0.4 ML SYRINGE SC SCH (10:26)
--- NOTE | 2024-12-01 13:12 | DVHPNRES ---
Progress Note Date Seen: Dec 01, 2024 Resident Creating Document: MARINA HWANG RESIDENT Medical Necessity Reason Pt with a Central, PICC or Fol: No Subjective Review of Systems Eli Morataya is a 44-year-old female with past medical history of Killian's disease, lupus, MS, fibromyalgia, presented to the ER with chief complaints of urinating blood clots. Hematuria with blood clots started 2 days before the admission. Next day, her symptoms worsened, she started complaining of associated pain, nausea, vomiting, chills which urged her visit to the hospital. The pain is sharp, burning, intermittent, radiates from her flank to the pelvic region. She also complains of associated burning micturition, dysuria. No history of fever, injury, diarrhea, constipation. She reports multiple episodes of UTI and nephrolithiasis in the past. Her at-home medications involve hydrocortisone, fludrocortisone, levothyroxine, Protonix, gabapentin, Flexeril, Robaxin, Zofran, Dilaudid. She is following pain control, with 4 mg Dilaudid q4hr. On admission, she had tachycardia, hypertension. Her initial labs revealed red color urine, RBCs [address]. [address] revealed no acute abnormality. She was examined at bedside today. Continues to complain of pain in the right flank area, associated with dysuria. Her vitals are stable. Today, her Hb dropped from 14.8-12.9, CBC increased. We will continue monitoring and managing. Past medical history: Killian's disease, lupus, MS, fibromyalgia, hypothyroidism, anxiety, asthma Surgical history: Cholecystectomy Social history: Reports smoking occasionally, last smoked yesterday 2 cigarettes. Denies alcohol, recreational drug use. Lives in home with family. ROS: Constitutional: Complains of chills. Denies weight loss, fever. HEENT: Denies changes in vision and hearing. Respiratory: Denies shortness of breath and cough. Cardiovascular: Denies chest discomfort or palpitations GI: Abdominal pain, nausea, vomiting. Normal bowel habits. : Dysuria and urinary frequency. Musculoskeletal: Denies myalgias and joint pain Skin: Denies rash and pruritus. Neurological: Denies dizziness, headache, vision or hearing problems Objective vital signs Vital Sign Date Time Temp Pulse Resp B/P (MAP) Pulse Ox O2 Delivery O2 Flow Rate FiO2 12/01/24 08:43 97.6 88 19 124/67 (86) 100 97.6 12/01/24 08:00 Room Air* 0 21 Total Intake and Output 11/30/24 11/30/24 12/01/24 15:00 23:00 07:00 Intake Total 650 ml Balance 650 ml medications Current Medications Medications Dose Ordered Sig/Emerson Route Start Time Stop Time Status Last Admin Dose Admin Ceftriaxone Sodium 50 ml @ 100 mls/hr DAILY IV 11/30/24 18:30 12/01/24 10:26 100 MLS/HR Sodium Chloride 10 ml Q8HR IV 11/30/24 22:00 12/01/24 05:59 10 ML Ondansetron HCl 4 mg Q4HP PRN IV 11/30/24 18:30 12/01/24 12:08 4 MG Hydromorphone HCl 4 mg Q4HP PRN PO 11/30/24 23:45 12/01/24 12:08 4 MG Examination General: Patient alert and oriented in person, place and time. Patient following commands. HEENT: Normocephalic, atraumatic, moist mucous membranes. Respiratory/pulmonary: Clear lungs bilaterally, no associated crackles or wheezes. Cardiovascular: Normal heart sounds S1 and S2 with no associated murmurs. Abdomen: Tenderness in left flank, pelvic region on light palpation No palpable masses. Extremities: There is no peripheral edema present at the lower extremities. Peripheral Pulses: 3+ Radial (R). 3+ Radial (L). 3+ Dorsalis pedis (R). 3+ Dorsalis pedis(L) Skin: No rashes or pruritus, there is no sacral edema present at this time. Neurological: Intact cranial nerves with no focal neurologic deficits laboratory and microbiology Laboratory Tests 12/01/24 05:05 Test 12/01/24 05:05 Range/Units Serum Glucose 88 74-106 mg/dL Microbiology Date/Time Source Procedure Growth Status 11/30/24 11:15 Voided Urine Urine Culture - Preliminary Resulted Problem List/Assessment/Plan Problem List/Assessment/Plan #Complicated Urinary tract infection #? Pyelonephritis #Hematuria, likely due to UTI #Lupus nephritis, possible #Nephrolithiasis, ruled out #Intractable pain abdomen, nausea, vomiting due to above #Leukocytosis -CT abdomen revealed no acute finding -Urine culture ordered. Continue ceftriaxone 1 g IV daily -Blood culture ordered -ESR, CRP ordered, we will obtain dsDNA Ab to check lupus activity status -Bladder ultrasound revealed bladder distended with debris noted at the base of the bladder. -Continue IV fluids #History of [place]'s disease #History of lupus #History of MS #History of fibromyalgia -Continue home medications #Hyperkalemia -Ordered calcium gluconate -We will continue monitoring and managing #Obesity Class I, with BMI 30.6 -Counseled on Lifestyle changes DIET: Regular DVT PROPHYLAXIS: Patient has hematuria, hold off anticoagulation CODE STATUS:Goals of care discussed with patient at bedside for more than 25 minutes, full code DISPOSITION: Med/surge Patient's status and plan discussed with the patient. Case discussed with Dr. Palafox. Plan discussed with: Patient Date of Service: Dec 01, 2024 Billing Provider: DAYSI PALAFOX MD Common Visit Codes: [id number] INP/OBS CARE(HIGH) MARINA HWANG RESIDENT Dec 01, 2024 13:12 DAYSI PALAFOX MD Dec 04, 2024 13:35
--- NOTE | 2024-12-01 13:53 | DVH ---
Exam: US BLADDER History: rule out any obstruction and structural disease, clots Comparison: None Date: 12/01/2024 01:35 PM Technique: Grayscale and color Doppler ultrasound of the pelvis was obtained. Pre-and postvoid images of the bladder were obtained. Findings: Bladder appears distended with debris noted at the base of the bladder. Correlate with UA. IMPRESSION: Bladder appears distended with debris noted at the base of the bladder. Correlate with UA. END IMPRESSION:
[2024-12-01] MEDS: IOHEXOL 300 MG/ML 100ML BOTTLE IJ ONE (20:24)
[2024-12-02] VITALS (8 sets, daily range): BP systolic 110–137; BP diastolic 49–83; PULSE 66–89; RESP 16–19; TEMP 96.9–98.2; O2SAT 97–100
[2024-12-02 06:28] LABS: Hematocrit 39.5 % (36.0-46.0); Hemoglobin 13.3 g/dL (12.2-16.2); Mean Corpuscular Hemoglobin 27.6 pg (28.0-32.0); Mean Corpuscular Volume 81.9 fL (80.0-100.0); Nucleated Red Blood Cells % 0.1 %
[2024-12-02 06:35] LABS: Anion Gap 9 (5-15); Carbon Dioxide 28 mmol/L (20-31); Chloride 103 mmol/L (98-107); Potassium 3.8 mmol/L (3.5-5.1); Sodium 140 mmol/L (136-145)
[2024-12-02 06:36] LABS: Calcium 9.8 mg/dL (8.7-10.4)
[2024-12-02 06:41] LABS: BUN/Creatinine Ratio 22.4 (10.0-20.0); Blood Urea Nitrogen 15 mg/dL (9-23); Glucose 86 mg/dL (74-106)
--- NOTE | 2024-12-02 08:52 | DVHINCON2 ---
Date of service: Dec 02, 2024 Referring Physician Hospitalist Reason for Consultation gross hematuria History of Present Illness History Source: Patient, RN Notes, MD Notes Exam Limitations: No limitations HPI 44y F who presents to the ED for chief complaint of hematuria. Pt states she has been having hematuria with associated blood clots for the past 2x days. Pt sta alba she has noted increased pain with associated dysuria, and frequency today and came to the ED for further evaluation. Pt in the ED, has noted LLQ pain radiating the L lower pelvic area. Pt rates the pain 10/10 and in noted distress. Pt otherwise denies any other symptoms. Pt is noted to be tachycardic at 124 and noted BP of 156/75 but otherwise stable vitals. Pt has noted auto immune history including SLE, polymyalgia, and fibromyalgia. Home Meds Active Scripts Doxycycline Hyclate (DOXYCYCLINE HYCLATE) 100 Mg Tab, 1 TAB PO BID, #14 TAB Prov:ISRAEL JOSEPH MD 09/24/16 Past Medical History Patient Family History: Diabetes mellitus G8 MOTHER G8 FATHER Family history: Autoimmune disease (situation) G8 MOTHER Family history: Blood disorder G8 MOTHER G8 FATHER Family history: Cardiovascular disease G8 MOTHER G8 FATHER Family history: Depression (situation) G8 MOTHER Family history: Osteoporosis G8 MOTHER Family history: Thyroid disorder G8 MOTHER G8 FATHER Smoker: No Hx (Negative) Alocohol: None Drugs: None Domestic Violence: Neg Review of Systems Gastrointestinal: Nausea, Vomiting, Abdominal Pain Genitourinary: Hematuria, Pain H&P Exam Vital Signs Vital Signs Date Time Temp Pulse Resp B/P (MAP) Pulse Ox O2 Delivery O2 Flow Rate FiO2 12/02/24 08:44 97.6 77 17 136/71 (92) 97 97.6 12/01/24 20:00 Room Air* 0 21 General Appeara: Well developed, Well nourished, Normal Appearance, Mild distress Neuro/Mental St: Alert, Oriented Appearance: Appropriate appearance, Appropriate insight Eye contact/ Speech: Cooperative, Good eye contact, Normal speech Skin Exam: Normal inspection, Normal color, Warm/dry Labs/Xrays [address] [address] Ph: [phone] DIAGNOSTIC IMAGING Diagnostic Imaging Report : [id number] Signed PATIENT: LEILANI POLLAKC EACCT: [id number] UNIT: [id number] : 1980 LOC: ER ROOM / BED: / AGE / SEX: 44 / F ADM STATUS: REG ER SERVICE 1217 ORDERING PHYSICIAN: ANDREAS SHAY MD PROCEDURE(s): ABPL - CT AB PEL WO CON-NO ORAL OR IV REASON: left flank pain, hematuria ORDER NUMBER(s): [id number], ACCESSION NUMBER(s): [id number] CT CT AB PEL WO CON-NO ORAL OR IV INDICATION: left flank pain, hematuria EXAM DATE: 11/30/2024 02:58 PM COMPARISON: None RADIATION DOSE: CTDIvol: 17 mGy, DLP: 1060 mGy*cm PROCEDURE: Helical CT images were obtained of the abdomen and pelvis without IV contrast Sagittal and coronal reconstructions are provided. ORAL CONTRAST: None. ADDITIONAL IMAGES / REFORMATS: None All CT scans at this medical facility are performed using dose modulation techniques as appropriate to a performed exam including the following: Automated exposure control was utilized; adjustment of the MA and/or KV according to patient size; and use of iterative reconstruction technique. FINDINGS: LUNG BASE: Normal. LIVER: Normal. GALLBLADDER AND BILIARY TREE: Cholecystectomy clips. No intra- or extrahepatic biliary ductal dilation. PANCREAS: Normal. SPLEEN: Normal. BOWEL: Normal. Normal appendix. ADRENALS: Normal. KIDNEYS AND URETER: Normal. BLADDER: Normal. REPRODUCTIVE ORGANS: Normal. LYMPH NODES:No lymphadenopathy. PERITONEUM: No ascites or free air. No other fluid collection. VESSELS: Scattered atherosclerotic calcifications are noted. RETROPERITONEUM: Normal. ABDOMINAL WALL: Normal. BONES: Scattered osseous degenerative changes are noted. IMPRESSION: No acute intraabdominal abnormality. No kidney stones are seen. ATED BY: ESTIVEN WILLARD MD DICTATED DATE/TIME: 11/30/241534 SIGNED BY: ESTIVEN WILLARD MD SIGNED DATE/TIME: 11/30/241534 CC: Labs Test 12/02/24 05:29 12/01/24 17:48 12/01/24 13:05 12/01/24 05:05 Range/Units White Blood Count 6.2 # 4.4-10.8 10^3/uL Red Blood Count 4.83 4.0-5.20 10^6/uL Hemoglobin 13.3 12.2-16.2 g/dL Hematocrit 39.5 36.0-46.0 % Mean Corpuscular Volume 81.9 80.0-100.0 fL Mean Corpuscular Hemoglobin 27.6 L 28.0-32.0 pg Mean Corpuscular Hemoglobin Concent 33.7 32.0-36.0 g/dL Red Cell Distribution Width 16.3 H 11.8-14.3 % Platelet Count 289 140-450 10^3/uL Mean Platelet Volume 7.2 6.9-10.8 fL Neutrophils (%) (Auto) 54.7 37.0-80.0 % Lymphocytes (%) (Auto) 30.9 10.0-50.0 % Monocytes (%) (Auto) 8.1 0.0-12.0 % Eosinophils (%) (Auto) 5.8 0.0-7.0 % Basophils (%) (Auto) 0.5 0.0-2.0 % Neutrophils # (Auto) 3.4 1.6-8.6 10 ^3/uL Lymphocytes # (Auto) 1.9 0.4-5.4 10 ^3/uL Monocytes # (Auto) 0.5 0-1.3 10 ^3/uL Eosinophils # (Auto) 0.4 0-0.8 10 ^3/uL Basophils # (Auto) 0 0-0.2 10 ^3/uL Nucleated Red Blood Cells 0.1 % Sodium Level 140 136-145 mmol/L Potassium Level 3.8 3.5-5.1 mmol/L Chloride Level 103 98-107 mmol/L Carbon Dioxide Level 28 20-31 mmol/L Anion Gap 9 5-15 Blood Urea Nitrogen 15 9-23 mg/dL Creatinine 0.67 0.550-1.02 mg/dL Glomerular Filtration Rate Calc 110 >90 mL/min BUN/Creatinine Ratio 22.4 H 10.0-20.0 Serum Glucose 86 74-106 mg/dL Calcium Level 9.8 8.7-10.4 mg/dL Beta HCG, Quantitative 1.7 1.5-4.2 mIU/mL Erythrocyte Sedimentation Rate 11 0-20 mm/hr C-Reactive Protein High Sensitivity 0.94 <1.0 mg/dL Total Bilirubin 0.4 0.2-1.0 mg/dL Aspartate Amino Transferase (AST) 14 13-40 U/L Alanine Aminotransferase (ALT) 13 7-40 U/L Alkaline Phosphatase 43 L 46-116 U/L Total Protein 6.3 5.7-8.2 g/dL Albumin 3.9 3.2-4.8 g/dL Test 11/30/24 11:15 Range/Units Urine Color Red H Yellow Urine Clarity Cloudy H Clear Urine pH 7.5 5.0-9.0 Urine Specific [place] 1.030 1.001-1.035 Urine Protein 2+ H Negative Urine Ketones Negative Negative Urine Blood 3+ H Negative /uL Urine Nitrite Negative Negative Urine Bilirubin Negative Negative Urine Urobilinogen Normal Negative mg/dL Urine Leukocyte Esterase 1+ Negative /uL Urine RBC 91280 0 - 4 /hpf Urine Microscopic WBC 14 H 0-5 /HPF Urine Squamous Epithelial Cells Mod <5 /hpf Urine Bacteria Few H None Seen /hpf Urine Glucose Normal Normal mg/dL Urine Test Negative Negative Microbiology Date/Time Source Procedure Growth Status 11/30/24 11:15 Voided Urine Urine Culture - Preliminary Resulted Assessment/Plan Problem List: (1) UTI (urinary tract infection) (2) Intractable nausea and vomiting (3) Hemorrhagic cystitis (4) Hx of Killian's disease (5) History of lupus Plan urine culture - pseudomonas aeruginosa IVFs cystoscopy TBA on outpt basis after resolution of UTI Plan discussed with: Patient, Other ROM SANCHEZ NP Dec 02, 2024 08:52
[2024-12-02 12:23] LABS: INR 0.97 (0.9-1.15); Partial Thromboplastin Time 29.5 SEC (24.5-34.5); Prothrombin Time 10.3 sec (9.3-11.8)
[2024-12-02] MEDS: IOHEXOL 300 MG/ML 100ML BOTTLE IJ ONE (16:54)
[2024-12-02] MEDS: PIPERACILLIN-TAZOB 3.375GM 100 ML IV SCH (17:32)
--- NOTE | 2024-12-02 17:40 | DVH ---
Indication: Hematurea Technique: CT axial images of the abdomen and pelvis are obtained with intravenous contrast. Coronal and sagittal reformats were obtained. Radiation Dose Information: CTDI volume is 22.34 mGy. Dose-length product is 1341.41 mGy*cm Comparison: None FINDINGS: Lung bases demonstrate 6 mm right middle lobe pulmonary solid nodule. Adrenal glands unremarkable spleen measures 12 cm AP. Pancreas unremarkable. Cholecystectomy. No enh ancing hepatic lesion. The kidneys demonstrate no hydronephrosis. 2 mm nonobstructing left renal calculus. 1.8 cm left marlen l cyst. Subcentimeter right renal cyst. The bilateral ureters are nondistended. Bladder partially di stended with contrast. No definitive bladder filling defect identified. Stomach is partially distended. Small bowel loops demonstrate Fecal like contents. Moderate volume stool in the colon. Normal appendix. Abdominal aorta normal in caliber. No free pelvic fluid. No inguinal lymphadenopathy. [id number] bilateral sacroiliac degenerative joint disease. IMPRESSION: Nonobstructing left renal calculus measuring 2 mm. No hydronephrosis. Cholecystectomy. 6 mm right middle lobe pulmonary nodule. Recommend follow-up per Fleischner society criteria. Moderate volume stool in the colon. Fecal like contents within the small bowel which can be seen with ileus, hypomotility, bowel obstruct ion.
--- NOTE | 2024-12-02 18:06 | DVHPNRES ---
Progress Note Date Seen: Dec 02, 2024 Resident Creating Document: MARINA HWANG RESIDENT Medical Necessity Reason Pt with a Central, PICC or Fol: No Subjective Review of Systems Eli Morataya is a 44-year-old female with past medical history of Killian's disease, lupus, MS, fibromyalgia, presented to the ER with chief complaints of urinating blood clots. Hematuria with blood clots started 2 days before the admission. Next day, her symptoms worsened, she started complaining of associated pain, nausea, vomiting, chills which urged her visit to the hospital. The pain is sharp, burning, intermittent, radiates from her flank to the pelvic region. She also complains of associated burning micturition, dysuria. No history of fever, injury, diarrhea, constipation. She reports multiple episodes of UTI and nephrolithiasis in the past. Her at-home medications involve hydrocortisone, fludrocortisone, levothyroxine, Protonix, gabapentin, Flexeril, Robaxin, Zofran, Dilaudid. She is following pain control, with 4 mg Dilaudid q4hr. On admission, she had tachycardia, hypertension. Her initial labs revealed red color urine, RBCs [address]. [address] revealed no acute abnormality. She was examined at bedside today. Continues to complain of pain in the right flank area, associated with dysuria. Her vitals are stable. Today, her Hb dropped from 14.8-12.9, CBC increased. We will continue monitoring and managing. Past medical history: Killian's disease, lupus, MS, fibromyalgia, hypothyroidism, anxiety, asthma Surgical history: Cholecystectomy Social history: Reports smoking occasionally, last smoked yesterday 2 cigarettes. Denies alcohol, recreational drug use. Lives in home with family. She was examined at bedside today. Continues to pass blood clots in the urine. Associated symptoms of dysuria, pain present. Culture positive for pseudomonas, switched Abx to Zosyn. ROS: Constitutional: Complains of chills. Denies weight loss, fever. HEENT: Denies changes in vision and hearing. Respiratory: Denies shortness of breath and cough. Cardiovascular: Denies chest discomfort or palpitations GI: Abdominal pain, nausea, vomiting. Normal bowel habits. : Dysuria and urinary frequency. Musculoskeletal: Denies myalgias and joint pain Skin: Denies rash and pruritus. Neurological: Denies dizziness, headache, vision or hearing problems Objective vital signs Vital Sign Date Time Temp Pulse Resp B/P (MAP) Pulse Ox O2 Delivery O2 Flow Rate FiO2 12/02/24 16:35 97.7 76 17 122/74 (90) 98 97.7 12/02/24 08:00 Room Air* 0 21 Total Intake and Output 12/01/24 12/01/24 12/02/24 15:00 23:00 07:00 Intake Total 50 ml 800 ml 820 ml Balance 50 ml 800 ml 820 ml medications Current Medications Medications Dose Ordered Sig/Emerson Route Start Time Stop Time Status Last Admin Dose Admin Sodium Chloride 10 ml Q8HR IV 11/30/24 22:00 12/02/24 06:07 10 ML Ondansetron HCl 4 mg Q4HP PRN IV 11/30/24 18:30 12/02/24 00:10 4 MG Hydromorphone HCl 4 mg Q3HR PO 12/02/24 13:15 12/02/24 14:52 4 MG Piperacillin Sod/ Tazobactam Sod 100 ml @ 25 mls/hr Q6HR IV 12/02/24 18:00 12/02/24 17:32 25 MLS/HR Examination General: Patient alert and oriented in person, place and time. Patient following commands. HEENT: Normocephalic, atraumatic, moist mucous membranes. Respiratory/pulmonary: Clear lungs bilaterally, no associated crackles or wheezes. Cardiovascular: Normal heart sounds S1 and S2 with no associated murmurs. Abdomen: Tenderness in left flank, pelvic region on light palpation No palpable masses. Extremities: There is no peripheral edema present at the lower extremities. Peripheral Pulses: 3+ Radial (R). 3+ Radial (L). 3+ Dorsalis pedis (R). 3+ Dorsalis pedis(L) Skin: No rashes or pruritus, there is no sacral edema present at this time. Neurological: Intact cranial nerves with no focal neurologic deficits laboratory and microbiology Laboratory Tests 12/02/24 05:29 Test 12/02/24 05:29 Range/Units Serum Glucose 86 74-106 mg/dL Microbiology Date/Time Source Procedure Growth Status 12/01/24 13:15 Blood Blood Culture - Preliminary NO GROWTH AFTER 24 HOURS OF INCUBATION. Resulted 11/30/24 11:15 Voided Urine Urine Culture - Final Pseudomonas aeruginosa Complete Problem List/Assessment/Plan Problem List/Assessment/Plan #Complicated Urinary tract infection #? Pyelonephritis #Hematuria, likely due to UTI #Lupus nephritis, possible #Nephrolithiasis, ruled out #Intractable pain abdomen, nausea, vomiting due to above #Leukocytosis -CT abdomen revealed no acute finding -Blood culture negative -ESR, CRP ordered, we will obtain dsDNA Ab to check lupus activity status -Bladder ultrasound revealed bladder distended with debris noted at the base of the bladder. -Continue IV fluids -Urine culture positive for pseudomonas. Switch to Zosyn 3.375 gm #History of Killian's disease #History of lupus #History of MS #History of fibromyalgia -Continue home medications #Hyperkalemia -Ordered calcium gluconate -We will continue monitoring and managing #Obesity Class I, with BMI 30.6 -Counseled on Lifestyle changes DIET: Regular DVT PROPHYLAXIS: Patient has hematuria, hold off anticoagulation CODE STATUS:Goals of care discussed with patient at bedside for more than 25 minutes, full code DISPOSITION: Med/surge Patient's status and plan discussed with the patient. Case discussed with Dr. Palafox. Plan discussed with: Patient Date of Service: Dec 02, 2024 Billing Provider: DAYSI PALAFOX MD Common Visit Codes: [id number] INP/OBS CARE(HIGH) MARINA HWANG RESIDENT Dec 02, 2024 18:06 DAYSI PALAFOX MD Dec 04, 2024 13:44
[2024-12-02] MEDS: HYDROCORTISONE 10 MG TAB PO SCH (21:13)
[2024-12-03] VITALS (8 sets, daily range): BP systolic 110–121; BP diastolic 54–81; PULSE 64–91; RESP 17–18; TEMP 86–98.3; O2SAT 93–100
[2024-12-03 06:57] LABS: Anion Gap 8 (5-15); Carbon Dioxide 29 mmol/L (20-31); Chloride 101 mmol/L (98-107); Potassium 4.4 mmol/L (3.5-5.1); Sodium 138 mmol/L (136-145)
[2024-12-03 07:01] LABS: Calcium 10.5 mg/dL (8.7-10.4)
[2024-12-03 07:03] LABS: BUN/Creatinine Ratio 12.5 (10.0-20.0); Blood Urea Nitrogen 9 mg/dL (9-23); Glucose 91 mg/dL (74-106)
[2024-12-03 09:36] LABS: Hematocrit 44.5 % (36.0-46.0); Hemoglobin 14.6 g/dL (12.2-16.2); Mean Corpuscular Hemoglobin 27.3 pg (28.0-32.0); Mean Corpuscular Volume 83.0 fL (80.0-100.0); Nucleated Red Blood Cells % 0.1 %
[2024-12-03 12:07] LABS: Anti-Centromere B Antibody <0.2 AI (0.0-0.9); Anti-Jo-1 Antibody <0.2 AI (0.0-0.9); Anti-dsDNA Antibody <1 IU/mL (0-9); Antichromatin Antibody <0.2 AI (0.0-0.9); Antiscleroderma-70 Antibody <0.2 AI (0.0-0.9); Sjogren's Anti-SS-A Antibody <0.2 AI (0.0-0.9); Sjogren's Anti-SS-B Antibody <0.2 AI (0.0-0.9)
--- NOTE | 2024-12-03 13:20 | DVHPNRES ---
Progress Note Date Seen: Dec 03, 2024 Resident Creating Document: MARINA HWANG RESIDENT Medical Necessity Reason Pt with a Central, PICC or Fol: No Subjective Review of Systems Eli Morataya is a 44-year-old female with past medical history of Killian's disease, lupus, MS, fibromyalgia, presented to the ER with chief complaints of urinating blood clots. Hematuria with blood clots started 2 days before the admission. Next day, her symptoms worsened, she started complaining of associated pain, nausea, vomiting, chills which urged her visit to the hospital. The pain is sharp, burning, intermittent, radiates from her flank to the pelvic region. She also complains of associated burning micturition, dysuria. No history of fever, injury, diarrhea, constipation. She reports multiple episodes of UTI and nephrolithiasis in the past. Her at-home medications involve hydrocortisone, fludrocortisone, levothyroxine, Protonix, gabapentin, Flexeril, Robaxin, Zofran, Dilaudid. She is following pain control, with 4 mg Dilaudid q4hr. On admission, she had tachycardia, hypertension. Her initial labs revealed red color urine, RBCs [id number]. Her abdominal [address] revealed no acute abnormality. Culture positive for pseudomonas, switched Abx to Zosyn. Past medical history: Killian's disease, lupus, MS, fibromyalgia, hypothyroidism, anxiety, asthma Surgical history: Cholecystectomy Social history: Reports smoking occasionally, last smoked yesterday 2 cigarettes. Denies alcohol, recreational drug use. Lives in home with family. ROS: Constitutional: Complains of chills. Denies weight loss, fever. HEENT: Denies changes in vision and hearing. Respiratory: Denies shortness of breath and cough. Cardiovascular: Denies chest discomfort or palpitations GI: Abdominal pain, nausea, vomiting. Normal bowel habits. : Dysuria and urinary frequency. Musculoskeletal: Denies myalgias and joint pain Skin: Denies rash and pruritus. Neurological: Denies dizziness, headache, vision or hearing problems 12/03/24: She was examined at bedside today. Continues to complain of hematuria, pain in the right flank area. Her vitals are stable. Her labs show increased calcium. CT abdomen revealed left renal calculus 2 mm, nonobstructing, surgical cholecystectomy, incidental pulmonary nodule of 6 mm. She continues taking Zosyn. We will continue monitoring and managing. Objective vital signs Vital Sign Date Time Temp Pulse Resp B/P (MAP) Pulse Ox O2 Delivery O2 Flow Rate FiO2 12/03/24 13:11 98.3 89 18 110/72 (85) 98 98.3 12/03/24 08:00 Room Air* 0 21 Total Intake and Output 12/02/24 12/02/24 12/03/24 15:00 23:00 07:00 Intake Total 860 ml 1800 ml Balance 860 ml 1800 ml medications Current Medications Medications Dose Ordered Sig/Emerson Route Start Time Stop Time Status Last Admin Dose Admin Sodium Chloride 10 ml Q8HR IV 11/30/24 22:00 12/03/24 06:19 10 ML Ondansetron HCl 4 mg Q4HP PRN IV 11/30/24 18:30 12/03/24 12:00 4 MG Piperacillin Sod/ Tazobactam Sod 100 ml @ 25 mls/hr Q6HR IV 12/02/24 18:00 12/03/24 12:01 25 MLS/HR Hydrocortisone 20 mg TID PO 12/02/24 22:00 12/03/24 06:16 20 MG Hydromorphone HCl 4 mg Q3H PO 12/02/24 21:00 12/03/24 11:58 4 MG Examination General: Patient alert and oriented in person, place and time. Patient following commands. HEENT: Normocephalic, atraumatic, moist mucous membranes. Respiratory/pulmonary: Clear lungs bilaterally, no associated crackles or wheezes. Cardiovascular: Normal heart sounds S1 and S2 with no associated murmurs. Abdomen: Tenderness in left flank, pelvic region on light palpation. No palpable masses. Extremities: There is no peripheral edema present at the lower extremities. Peripheral Pulses: 3+ Radial (R). 3+ Radial (L). 3+ Dorsalis pedis (R). 3+ Dorsalis pedis(L) Skin: No rashes or pruritus, there is no sacral edema present at this time. Neurological: Intact cranial nerves with no focal neurologic deficits laboratory and microbiology Laboratory Tests 12/03/24 08:52 12/03/24 05:34 Test 12/03/24 05:34 Range/Units Serum Glucose 91 74-106 mg/dL Microbiology Date/Time Source Procedure Growth Status 12/01/24 13:15 Blood Blood Culture - Preliminary NO GROWTH AFTER 24 HOURS OF INCUBATION. Resulted 11/30/24 11:15 Voided Urine Urine Culture - Final Pseudomonas aeruginosa Complete Problem List/Assessment/Plan Problem List/Assessment/Plan #Complicated Urinary tract infection #? Pyelonephritis #Hematuria, likely due to UTI #Lupus nephritis, possible #Nephrolithiasis, ruled out #Intractable pain abdomen, nausea, vomiting due to above #Leukocytosis -CT abdomen revealed no acute finding -Blood culture negative -ESR, CRP ordered, we will obtain dsDNA Ab to check lupus activity status -Bladder ultrasound revealed bladder distended with debris noted at the base of the bladder. -Continue IV fluids -Urine culture positive for pseudomonas. -Continue Zosyn 3.375 gm #History of Dorchester's disease #History of lupus #History of MS #History of fibromyalgia -Continue home medications #Hyperkalemia #Hypercalcemia -We will continue monitoring and managing #Obesity Class I, with BMI 30.6 -Counseled on Lifestyle changes DIET: Regular DVT PROPHYLAXIS: Patient has hematuria, hold off anticoagulation CODE STATUS:Goals of care discussed with patient at bedside for more than 25 minutes, full code DISPOSITION: Med/surge Patient's status and plan discussed with the patient. Case discussed with Dr. Palafox. Plan discussed with: Patient My Orders My Orders Orders - MARINA HWANG RESIDENT Procedure Category Date Status Time Hydrocortisone Tablet PHA 12/02/24 In Process (Cortef Tablet) 22:00 Dietary Evaluation Review Comments: 1. Repeat serum Calcium 2. Monitor PO intakes 3. Weight management Expected Outcomes/Goals: Gradual wt loss Date of Service: Dec 03, 2024 Billing Provider: DAYSI PALAFOX MD Common Visit Codes: [id number] INP/OBS CARE(HIGH) MARINA HWANG RESIDENT Dec 03, 2024 13:20 DAYSI PALAFOX MD Dec 04, 2024 13:53
[2024-12-04] VITALS (8 sets, daily range): BP systolic 108–126; BP diastolic 57–87; PULSE 74–98; RESP 16–20; TEMP 96.7–98; O2SAT 96–99
[2024-12-04 06:28] LABS: Hematocrit 44.5 % (36.0-46.0); Hemoglobin 14.8 g/dL (12.2-16.2); Mean Corpuscular Hemoglobin 27.4 pg (28.0-32.0); Mean Corpuscular Volume 82.5 fL (80.0-100.0); Nucleated Red Blood Cells % 0.1 %
--- NOTE | 2024-12-04 11:53 | DVHPNRES ---
Progress Note Date Seen: Dec 04, 2024 Resident Creating Document: MARINA HWANG RESIDENT Medical Necessity Reason Pt with a Central, PICC or Fol: No Subjective Review of Systems Eli Morataya is a 44-year-old female with past medical history of Killian's disease, lupus, MS, fibromyalgia, presented to the ER with chief complaints of urinating blood clots. Hematuria with blood clots started 2 days before the admission. Next day, her symptoms worsened, she started complaining of associated pain, nausea, vomiting, chills which urged her visit to the hospital. The pain is sharp, burning, intermittent, radiates from her flank to the pelvic region. She also complains of associated burning micturition, dysuria. No history of fever, injury, diarrhea, constipation. She reports multiple episodes of UTI and nephrolithiasis in the past. Her at-home medications involve hydrocortisone, fludrocortisone, levothyroxine, Protonix, gabapentin, Flexeril, Robaxin, Zofran, Dilaudid. She is following pain control, with 4 mg Dilaudid q4hr. On admission, she had tachycardia, hypertension. Her initial labs revealed red color urine, RBCs [id number]. [address] revealed no acute abnormality. Culture positive for pseudomonas, switched Abx to Zosyn. CT abdomen revealed left renal calculus 2 mm, nonobstructing, surgical cholecystectomy, incidental pulmonary nodule of 6 mm. Past medical history: Carver's disease, lupus, MS, fibromyalgia, hypothyroidism, anxiety, asthma Surgical history: Cholecystectomy Social history: Reports smoking occasionally, last smoked yesterday 2 cigarettes. Denies alcohol, recreational drug use. Lives in home with family. ROS: Constitutional: Complains of chills. Denies weight loss, fever. HEENT: Denies changes in vision and hearing. Respiratory: Denies shortness of breath and cough. Cardiovascular: Denies chest discomfort or palpitations GI: Abdominal pain, nausea, vomiting. Normal bowel habits. : Dysuria and urinary frequency. Musculoskeletal: Denies myalgias and joint pain Skin: Denies rash and pruritus. Neurological: Denies dizziness, headache, vision or hearing problems She was examined at bedside today. Continues to complain of hematuria, pain in the right flank area. Her vitals are stable. Her labs show increased WBCs, possibly due to steroid use. She continues taking Zosyn, allergic to ciprofloxacin. We will continue monitoring and managing. Objective vital signs Vital Sign Date Time Temp Pulse Resp B/P (MAP) Pulse Ox O2 Delivery O2 Flow Rate FiO2 12/04/24 09:00 97.9 84 18 117/87 (97) 98 97.9 12/03/24 20:00 Room Air* 0 21 Total Intake and Output 12/03/24 12/03/24 12/04/24 15:00 23:00 07:00 Intake Total 100 ml 300 ml 880 ml Balance 100 ml 300 ml 880 ml medications Current Medications Medications Dose Ordered Sig/Emerson Route Start Time Stop Time Status Last Admin Dose Admin Sodium Chloride 10 ml Q8HR IV 11/30/24 22:00 12/04/24 06:16 10 ML Ondansetron HCl 4 mg Q4HP PRN IV 11/30/24 18:30 12/03/24 21:13 4 MG Piperacillin Sod/ Tazobactam Sod 100 ml @ 25 mls/hr Q6HR IV 12/02/24 18:00 12/04/24 06:16 25 MLS/HR Hydrocortisone 20 mg TID PO 12/02/24 22:00 12/04/24 06:13 20 MG Hydromorphone HCl 4 mg Q3H PO 12/02/24 21:00 12/04/24 09:19 4 MG Examination General: Patient alert and oriented in person, place and time. Patient following commands. HEENT: Normocephalic, atraumatic, moist mucous membranes. Respiratory/pulmonary: Clear lungs bilaterally, no associated crackles or wheezes. Cardiovascular: Normal heart sounds S1 and S2 with no associated murmurs. Abdomen: Tenderness in left flank, pelvic region on palpation. No palpable masses. Extremities: There is no peripheral edema present at the lower extremities. Skin: No rashes or pruritus, there is no sacral edema present at this time. Neurological: Intact cranial nerves with no focal neurologic deficits laboratory and microbiology Laboratory Tests 12/04/24 04:56 12/03/24 05:34 Test 12/03/24 05:34 Range/Units Serum Glucose 91 74-106 mg/dL Microbiology Date/Time Source Procedure Growth Status 12/01/24 13:15 Blood Blood Culture - Preliminary NO GROWTH AFTER 48 HOURS OF INCUBATION. Resulted 11/30/24 11:15 Voided Urine Urine Culture - Final Pseudomonas aeruginosa Complete Problem List/Assessment/Plan Problem List/Assessment/Plan #Complicated Urinary tract infection #? Pyelonephritis #Hematuria, likely due to UTI #Lupus nephritis, possible #Nephrolithiasis, ruled out #Intractable pain abdomen, nausea, vomiting due to above #Leukocytosis -CT abdomen revealed no acute finding -Blood culture negative -ESR, CRP ordered, we will obtain dsDNA Ab to check lupus activity status -Bladder ultrasound revealed bladder distended with debris noted at the base of the bladder. -Continue IV fluids -Urine culture positive for pseudomonas. -Continue Zosyn 3.375 gm. Allergic to ciprofloxacin. -We will continue monitoring and managing #History of Killian's disease #History of lupus #History of MS #History of fibromyalgia -Continue home medications #Hyperkalemia #Hypercalcemia -We will continue monitoring and managing #Obesity Class I, with BMI 30.6 -Counseled on Lifestyle changes DIET: Regular DVT PROPHYLAXIS: Patient has hematuria, hold off anticoagulation CODE STATUS:Goals of care discussed with patient at bedside for more than 25 minutes, full code DISPOSITION: Med/surge Patient's status and plan discussed with the patient. Case discussed with Dr. Palafox. Plan discussed with: Patient Dietary Evaluation Review Comments: 1. Repeat serum Calcium 2. Monitor PO intakes 3. Weight management Expected Outcomes/Goals: Gradual wt loss Date of Service: Dec 04, 2024 Billing Provider: DAYSI PALAFOX MD Common Visit Codes: [id number] INP/OBS CARE(HIGH) MARINA HWANG RESIDENT Dec 04, 2024 11:53 DAYSI PALAFOX MD Dec 04, 2024 14:08
[2024-12-05] VITALS (7 sets, daily range): BP systolic 110–146; BP diastolic 65–90; PULSE 62–86; RESP 16–18; TEMP 96.4–97.9; O2SAT 96–100
[2024-12-05 06:08] LABS: Hematocrit 46.2 % (36.0-46.0); Hemoglobin 15.4 g/dL (12.2-16.2); Mean Corpuscular Hemoglobin 28.0 pg (28.0-32.0); Mean Corpuscular Volume 83.9 fL (80.0-100.0); Nucleated Red Blood Cells % 0.2 %
--- NOTE | 2024-12-05 10:35 | DVHPNRES ---
Progress Note Date Seen: Dec 05, 2024 Resident Creating Document: MARINA HWANG RESIDENT Medical Necessity Reason Pt with a Central, PICC or Fol: No Subjective Review of Systems Eli Morataya is a 44-year-old female with past medical history of De Leon's disease, lupus, MS, fibromyalgia, presented to the ER with chief complaints of urinating blood clots. Hematuria with blood clots started 2 days before the admission. Next day, her symptoms worsened, she started complaining of associated pain, nausea, vomiting, chills which urged her visit to the hospital. The pain is sharp, burning, intermittent, radiates from her flank to the pelvic region. She also complains of associated burning micturition, dysuria. No history of fever, injury, diarrhea, constipation. She reports multiple episodes of UTI and nephrolithiasis in the past. Her at-home medications involve hydrocortisone, fludrocortisone, levothyroxine, Protonix, gabapentin, Flexeril, Robaxin, Zofran, Dilaudid. She is following pain control, with 4 mg Dilaudid q4hr. On admission, she had tachycardia, hypertension. Her initial labs revealed red color urine, RBCs [id number]. [address] revealed no acute abnormality. Culture positive for pseudomonas, switched Abx to Zosyn. CT abdomen revealed left renal calculus 2 mm, nonobstructing, surgical cholecystectomy, incidental pulmonary nodule of 6 mm. Past medical history: De Leon's disease, lupus, MS, fibromyalgia, hypothyroidism, anxiety, asthma Surgical history: Cholecystectomy Social history: Reports smoking occasionally, last smoked the day before admission. Denies alcohol, recreational drug use. Lives in home with family. ROS: Constitutional: Complains of chills. Denies weight loss, fever. HEENT: Denies changes in vision and hearing. Respiratory: Denies shortness of breath and cough. Cardiovascular: Denies chest discomfort or palpitations GI: Abdominal pain, nausea, vomiting. Normal bowel habits. : Dysuria and urinary frequency. Musculoskeletal: Denies myalgias and joint pain Skin: Denies rash and pruritus. Neurological: Denies dizziness, headache, vision or hearing problems She was examined at bedside today. Her vitals are stable. Reports improvement in symptoms, continues complain of passing blood clots and hematuria, pain in the right flank area. Her labs show increased calcium, borderline. She continues taking Zosyn, allergic to ciprofloxacin. Will continue monitoring and managing. Objective vital signs Vital Sign Date Time Temp Pulse Resp B/P (MAP) Pulse Ox O2 Delivery O2 Flow Rate FiO2 12/05/24 09:00 96.4 69 17 110/72 (85) 99 96.4 12/05/24 08:05 Room Air* 0 21 Total Intake and Output 12/04/24 12/04/24 12/05/24 15:00 23:00 07:00 Intake Total 700 ml 1800 ml Balance 700 ml 1800 ml medications Current Medications Medications Dose Ordered Sig/Emerson Route Start Time Stop Time Status Last Admin Dose Admin Sodium Chloride 10 ml Q8HR IV 11/30/24 22:00 12/05/24 09:08 10 ML Ondansetron HCl 4 mg Q4HP PRN IV 11/30/24 18:30 12/04/24 21:11 4 MG Piperacillin Sod/ Tazobactam Sod 100 ml @ 25 mls/hr Q6HR IV 12/02/24 18:00 12/05/24 06:22 25 MLS/HR Hydrocortisone 20 mg TID PO 12/02/24 22:00 12/05/24 06:21 20 MG Hydromorphone HCl 4 mg Q3H PO 12/02/24 21:00 12/05/24 09:08 4 MG Examination General: Patient alert and oriented in person, place and time. Patient following commands. HEENT: Normocephalic, atraumatic, moist mucous membranes. Respiratory/pulmonary: Clear lungs bilaterally, no associated crackles or wheezes. Cardiovascular: Normal heart sounds S1 and S2 with no associated murmurs. Abdomen: Mild tenderness in left flank, pelvic region on palpation. No palpable masses. Extremities: There is no peripheral edema present at the lower extremities. Skin: No rashes or pruritus, there is no sacral edema present at this time. Neurological: Intact cranial nerves with no focal neurologic deficits laboratory and microbiology Laboratory Tests 12/05/24 05:08 12/03/24 05:34 Test 12/03/24 05:34 Range/Units Serum Glucose 91 74-106 mg/dL Microbiology Date/Time Source Procedure Growth Status 12/01/24 13:15 Blood Blood Culture - Preliminary NO GROWTH AFTER 72 HOURS OF INCUBATION. Resulted 11/30/24 11:15 Voided Urine Urine Culture - Final Pseudomonas aeruginosa Complete Labs and/or images reviewed: Labs reviewed by me, Image(s) reviewed by me Problem List/Assessment/Plan Problem List/Assessment/Plan #Complicated Urinary tract infection #Immunocompromised state #Sepsis due to complicated UTI #Pyelonephritis, possible #Hematuria, due to UTI #Lupus nephritis, possible #Nephrolithiasis, ruled out #Intractable pain abdomen, nausea, vomiting due to above #Neutrophilic Leukocytosis, multifactorial sepsis and steroids -CT abdomen revealed no acute finding -Blood culture negative -ESR, CRP WNL. DIANNE, anti Shanon 1, SSA, SSB, anti Palma, [employer], scleroderma, dsDNA antibody, centromere antibodies tests negative. -Bladder ultrasound revealed bladder distended with debris noted at the base of the bladder. -IV fluids administered -Urine culture positive for Pseudomonas aeruginosa -Continue Zosyn 3.375 gm. Allergic to ciprofloxacin. #De Leon's disease #Systematic lupus #History of multiple screws #History of fibromyalgia -Continue home medications #Hyperkalemia #Hypercalcemia -We will continue monitoring and managing #Obesity Class I, with BMI 30.6 -Counseled on Lifestyle modification @Tobacco use disorder Counseled on tobacco use cessation for 16 minutes DIET: Regular DVT PROPHYLAXIS: Patient has hematuria, hold off anticoagulation. SCDs CODE STATUS: Goals of care discussed with patient at bedside for 20 minutes, full code DISPOSITION: Med/surge Patient's status and plan discussed with the patient. Case discussed with Dr. Meier. Plan discussed with: Patient, Other (RN) Dietary Evaluation Review Comments: 1. Repeat serum Calcium 2. Monitor PO intakes 3. Weight management Expected Outcomes/Goals: Gradual wt loss Addendum Addendum Addendum I was physically present for the sanchez portions of the service provided to patient by THE RESIDENT. I have reviewed the documentation, discussed the case with resident and agree with the resident's documentation except as noted. Also the patient's clinical case was discussed with the patient's nurse. This medical document was created using an electronic medical record system with computerized dictation system. Although this document has been carefully reviewed, there might still be some phonetic and typographical errors. These areas are purely typographical due to imperfections of the software programs, and do not reflect any compromise in the patient's medical care. Late signature. Date of Service: Dec 05, 2024 Billing Provider: JONELLE MEIER MD Common Visit Codes: [id number] INP/OBS CARE(HIGH) Secondary Visit Codes: [id number] CHNG SMOKING >10MIN (16 minutes), [id number]- ADVANCED CARE PLAN 30 MINUTES (20 minutes) MARINA HWANG RESIDENT Dec 05, 2024 10:35 SALVATORE RHODES RESIDENT Dec 05, 2024 14:39 JONELLE MEIER MD Dec 06, 2024 09:12
[2024-12-05] MEDS: HYDROmorphone HCL 2 MG/ML VL/or syr IV PRN (21:06)
[2024-12-06] VITALS (8 sets, daily range): BP systolic 117–138; BP diastolic 64–87; PULSE 60–80; RESP 16–18; TEMP 97.3–98.2; O2SAT 96–100
[2024-12-06] MEDS: HYDROmorphone HCL 2 MG/ML VL/or syr IV PRN (13:34)
--- NOTE | 2024-12-06 16:51 | DVHPNRES ---
Progress Note Date Seen: Dec 06, 2024 Resident Creating Document: MARINA HWANG RESIDENT Medical Necessity Reason Pt with a Central, PICC or Fol: No Subjective Review of Systems Eli Morataya is a 44-year-old female with past medical history of Oconto's disease, lupus, MS, fibromyalgia, presented to the ER with chief complaints of urinating blood clots. Hematuria with blood clots started 2 days before the admission. Next day, her symptoms worsened, she started complaining of associated pain, nausea, vomiting, chills which urged her visit to the hospital. The pain is sharp, burning, intermittent, radiates from her flank to the pelvic region. She also complains of associated burning micturition, dysuria. No history of fever, injury, diarrhea, constipation. She reports multiple episodes of UTI and nephrolithiasis in the past. Her at-home medications involve hydrocortisone, fludrocortisone, levothyroxine, Protonix, gabapentin, Flexeril, Robaxin, Zofran, Dilaudid. She is following pain control, with 4 mg Dilaudid q4hr. On admission, she had tachycardia, hypertension. Her initial labs revealed red color urine, RBCs [address] revealed no acute abnormality. Culture positive for pseudomonas, switched Abx to Zosyn. CT abdomen revealed left renal calculus 2 mm, nonobstructing, surgical cholecystectomy, incidental pulmonary nodule of 6 mm. Past medical history: Oconto's disease, lupus, MS, fibromyalgia, hypothyroidism, anxiety, asthma Surgical history: Cholecystectomy Social history: Reports smoking occasionally, last smoked the day before admission. Denies alcohol, recreational drug use. Lives in home with family. ROS: Constitutional: Complains of chills. Denies weight loss, fever. HEENT: Denies changes in vision and hearing. Respiratory: Denies shortness of breath and cough. Cardiovascular: Denies chest discomfort or palpitations GI: Abdominal pain, nausea, vomiting. Normal bowel habits. : Dysuria and urinary frequency. Musculoskeletal: Denies myalgias and joint pain Skin: Denies rash and pruritus. Neurological: Denies dizziness, headache, vision or hearing problems She was examined at bedside today. Her vitals are stable. Complained of pain due to switching from oral Dilaudid to IV q.4 due to non availability. She also complains of of passing blood clots and hematuria, pain in the right flank area. Will continue IV Zosyn, allergic to ciprofloxacin. Will continue monitoring and managing. Objective vital signs Vital Sign Date Time Temp Pulse Resp B/P (MAP) Pulse Ox O2 Delivery O2 Flow Rate FiO2 12/06/24 14:04 68 18 126/70 12/06/24 13:00 98.2 100 98.2 12/06/24 08:00 Room Air* 0 21 Total Intake and Output 12/05/24 12/05/24 12/06/24 15:00 23:00 07:00 Intake Total 100 ml 1500 ml 840 ml Output Total 700 ml Balance 100 ml 1500 ml 140 ml medications Current Medications Medications Dose Ordered Sig/Emerson Route Start Time Stop Time Status Last Admin Dose Admin Sodium Chloride 10 ml Q8HR IV 11/30/24 22:00 12/06/24 14:00 10 ML Ondansetron HCl 4 mg Q4HP PRN IV 11/30/24 18:30 12/06/24 10:29 4 MG Piperacillin Sod/ Tazobactam Sod 100 ml @ 25 mls/hr Q6HR IV 12/02/24 18:00 12/06/24 13:32 25 MLS/HR Hydrocortisone 20 mg TID PO 12/02/24 22:00 12/06/24 15:23 20 MG Hydromorphone HCl 1 mg Q4HPRN PRN IV 12/06/24 11:15 12/06/24 13:34 1 MG Examination General: Apparent distress due to pain. Patient alert and oriented in person, place and time. Patient following commands. HEENT: Normocephalic, atraumatic, moist mucous membranes. Respiratory/pulmonary: Clear lungs bilaterally, no associated crackles or wheezes. Cardiovascular: Normal heart sounds S1 and S2 with no associated murmurs. Abdomen: Tenderness in left flank, pelvic region on palpation. No palpable masses. Extremities: There is no peripheral edema present at the lower extremities. Skin: No rashes or pruritus, there is no sacral edema present at this time. Neurological: Intact cranial nerves with no focal neurologic deficits laboratory and microbiology Laboratory Tests 12/05/24 05:08 12/03/24 05:34 Test 12/03/24 05:34 Range/Units Serum Glucose 91 74-106 mg/dL Microbiology Date/Time Source Procedure Growth Status 12/01/24 13:15 Blood Blood Culture - Final NO GROWTH AFTER 5 DAYS OF INCUBATION. Complete 11/30/24 11:15 Voided Urine Urine Culture - Final Pseudomonas aeruginosa Complete Labs and/or images reviewed: Labs reviewed by me, Image(s) reviewed by me Problem List/Assessment/Plan Problem List/Assessment/Plan #Complicated Urinary tract infection #Immunocompromised state #Sepsis due to complicated UTI #Pyelonephritis, possible #Hematuria, due to UTI #Lupus nephritis, possible #Nephrolithiasis, ruled out #Intractable pain abdomen, nausea, vomiting due to above #Neutrophilic Leukocytosis, multifactorial sepsis and steroids -CT abdomen revealed no acute finding -Blood culture negative -ESR, CRP WNL. DIANNE, anti Shanon 1, SSA, SSB, anti Palma, MAINTENANCE MANAGER, scleroderma, dsDNA antibody, centromere antibodies tests negative. -Bladder ultrasound revealed bladder distended with debris noted at the base of the bladder. -IV fluids administered -Urine culture positive for pseudomonas. -Continue Zosyn 3.375 gm. Allergic to ciprofloxacin. -Dilaudid switched from p.o. to IV due to non availability of stock #History of Oconto's disease #History of lupus #History of MS #History of fibromyalgia -Continue home medications #Hyperkalemia #Hypercalcemia -We will continue monitoring and managing #Obesity Class I, with BMI 30.6 -Counseled on Lifestyle changes DIET: Regular DVT PROPHYLAXIS: Patient has hematuria, hold off anticoagulation. CODE STATUS: Full code DISPOSITION: Med/surge Patient's status and plan discussed with the patient. Case discussed with Dr. Meier. Plan discussed with: Patient, Other (RN) Dietary Evaluation Review Comments: 1. Repeat serum Calcium 2. Monitor PO intakes 3. Weight management Expected Outcomes/Goals: Gradual wt loss Addendum Addendum Addendum I was physically present for the sanchez portions of the service provided to patient by THE RESIDENT. I have reviewed the documentation, discussed the case with resident and agree with the resident's documentation except as noted. Also the patient's clinical case was discussed with the patient's nurse. This medical document was created using an electronic medical record system with computerized dictation system. Although this document has been carefully reviewed, there might still be some phonetic and typographical errors. These areas are purely typographical due to imperfections of the software programs, and do not reflect any compromise in the patient's medical care. Late signature. Date of Service: Dec 06, 2024 Billing Provider: JONELLE MEIER MD Common Visit Codes: [id number] INP/OBS CARE(HIGH) MARINA HWANG RESIDENT Dec 06, 2024 16:51 JONELLE MEIER MD Dec 08, 2024 05:18
[2024-12-07] VITALS (8 sets, daily range): BP systolic 123–143; BP diastolic 73–92; PULSE 79–95; RESP 17–19; TEMP 97.1–98; O2SAT 97–100
--- NOTE | 2024-12-07 13:35 | DVHPNRES ---
Progress Note Date Seen: Dec 07, 2024 Resident Creating Document: JESSICA BARAHONA RESDIENT Medical Necessity Reason Pt with a Central, PICC or Fol: No Subjective Review of Systems Patient seen and examined at the bedside. Patient is feeling better since admission. The patient still has hematuria. Objective vital signs Vital Sign Date Time Temp Pulse Resp B/P (MAP) Pulse Ox O2 Delivery O2 Flow Rate FiO2 12/07/24 12:55 97.4 95 19 136/92 (107) 98 97.4 12/07/24 08:00 Room Air* 0 21 Total Intake and Output 12/06/24 12/06/24 12/07/24 15:00 23:00 07:00 Intake Total 340 ml 900 ml 1100 ml Balance 340 ml 900 ml 1100 ml medications Current Medications Medications Dose Ordered Sig/Emerson Route Start Time Stop Time Status Last Admin Dose Admin Sodium Chloride 10 ml Q8HR IV 11/30/24 22:00 12/07/24 06:19 10 ML Ondansetron HCl 4 mg Q4HP PRN IV 11/30/24 18:30 12/06/24 10:29 4 MG Piperacillin Sod/ Tazobactam Sod 100 ml @ 25 mls/hr Q6HR IV 12/02/24 18:00 12/07/24 11:59 25 MLS/HR Hydrocortisone 20 mg TID PO 12/02/24 22:00 12/07/24 05:41 20 MG Hydromorphone HCl 4 mg Q3HP PRN PO 12/06/24 18:45 12/07/24 11:59 4 MG Alprazolam 0.25 mg HS PO 12/07/24 22:00 Examination General Appearance: Alert, Oriented X3, Cooperative, No acute distress HEENT: Atraumatic, PERRLA, EOMI, Mucous membrane moist/pink Respiratory: Clear to auscultation, Normal air movement Cardiovascular: Regular rate, Normal S1, Normal S2, No murmurs, no chest wall tenderness Abdominal: Mild abdominal tenderness Extremities: No clubbing, No cyanosis, No edema, Normal pulses, No tenderness/swelling Skin: No rashes, No breakdown, No significant lesion Neuro: Normal gait, Normal speech, Strength at 5/5 X4 ext, Normal tone, Sensation intact, Cranial nerves 3-12 NL, Reflexes 2+ Psych/Mental Status: Mental status NL, Mood NL laboratory and microbiology Laboratory Tests 12/05/24 05:08 12/03/24 05:34 Test 12/03/24 05:34 Range/Units Serum Glucose 91 74-106 mg/dL Microbiology Date/Time Source Procedure Growth Status 12/01/24 13:15 Blood Blood Culture - Final NO GROWTH AFTER 5 DAYS OF INCUBATION. Complete 11/30/24 11:15 Voided Urine Urine Culture - Final Pseudomonas aeruginosa Complete Labs and/or images reviewed: Labs reviewed by me, Image(s) reviewed by me Problem List/Assessment/Plan Problem List/Assessment/Plan #Complicated Urinary tract infection #Immunocompromised state #Sepsis due to complicated UTI #Pyelonephritis, possible #Hematuria, due to UTI #Lupus nephritis, possible #Nephrolithiasis, ruled out #Intractable pain abdomen, nausea, vomiting due to above #Neutrophilic Leukocytosis, multifactorial sepsis and steroids -CT abdomen revealed no acute finding -Blood culture negative -ESR, CRP WNL. DIANNE, anti Shanon 1, SSA, SSB, anti Palma, ACCOUNT SUPPORT SPECIALIST, scleroderma, dsDNA antibody, centromere antibodies tests negative. -Bladder ultrasound revealed bladder distended with debris noted at the base of the bladder. -IV fluids administered -Urine culture positive for pseudomonas. -Continue Zosyn 3.375 gm. Allergic to ciprofloxacin. -Dilaudid switched from p.o. to IV due to non availability of stock #History of Anasco's disease #History of lupus #History of MS #History of fibromyalgia -Continue home medications #Hyperkalemia #Hypercalcemia -We will continue monitoring and managing #Obesity Class I, with BMI 30.6 -Counseled on Lifestyle changes DIET: Regular DVT PROPHYLAXIS: Patient has hematuria, hold off anticoagulation. CODE STATUS: Full code DISPOSITION: Med/surge Patient's status and plan discussed with the patient. Patient is feeling better, but still complaining of hematuria. Case discussed with Dr. Meier. Plan discussed with: Patient, Other (RN) My Orders My Orders Orders - JESSICA BARAHONA RESDIENT Procedure Category Date Status Time Alprazolam Tablet PHA 12/07/24 In Process (Xanax Tablet) 22:00 Dietary Evaluation Review Comments: 1. Repeat serum Calcium 2. Monitor PO intakes 3. Weight management Expected Outcomes/Goals: Gradual wt loss Addendum Addendum Addendum I was physically present for the sanchez portions of the service provided to patient by THE RESIDENT. I have reviewed the documentation, discussed the case with resident and agree with the resident's documentation except as noted. Also the patient's clinical case was discussed with the patient's nurse. This medical document was created using an electronic medical record system with computerized dictation system. Although this document has been carefully reviewed, there might still be some phonetic and typographical errors. These areas are purely typographical due to imperfections of the software programs, and do not reflect any compromise in the patient's medical care. Late signature. Date of Service: Dec 07, 2024 Billing Provider: JONELLE MEIER MD Common Visit Codes: [id number] INP/OBS CARE(HIGH) JESSICA BARAHONA RESDIENT Dec 07, 2024 13:35 JONELLE MEIER MD Dec 08, 2024 05:19
[2024-12-07] MEDS: ALPRAZolam 0.25 MG TAB PO SCH (20:47)
[2024-12-08 01:00] VITALS: BP 140/68; PULSE 85; RESP 18; TEMP 97.9; O2SAT 95
[2024-12-08 05:00] VITALS: BP 114/80; PULSE 74; RESP 18; TEMP 98.1; O2SAT 98
[2024-12-08 06:43] LABS: Hematocrit 43.5 % (36.0-46.0); Hemoglobin 14.2 g/dL (12.2-16.2); Mean Corpuscular Hemoglobin 27.9 pg (28.0-32.0); Mean Corpuscular Volume 85.3 fL (80.0-100.0); Nucleated Red Blood Cells % 0.2 %
[2024-12-08 07:04] LABS: Alanine Aminotransferase 10 U/L (7-40); Albumin 4.2 g/dL (3.2-4.8); Alkaline Phosphatase 46 U/L (46-116); Anion Gap 9 (5-15); BUN/Creatinine Ratio 24.3 (10.0-20.0); Bilirubin, Total 0.3 mg/dL (0.2-1.0); Blood Urea Nitrogen 17 mg/dL (9-23); Calcium 9.4 mg/dL (8.7-10.4); Carbon Dioxide 23 mmol/L (20-31); Chloride 106 mmol/L (98-107); Glucose 89 mg/dL (74-106); Potassium 4.2 mmol/L (3.5-5.1); Sodium 138 mmol/L (136-145); Total Protein 7.0 g/dL (5.7-8.2)
[2024-12-08 08:00] VITALS: PULSE 76; RESP 18; O2SAT 99
[2024-12-08 08:54] VITALS: BP 117/85; PULSE 76; RESP 18; TEMP 97.9; O2SAT 99
[2024-12-08 11:44] VITALS: BP 131/86; PULSE 92; RESP 19; TEMP 97.6; O2SAT 100
--- NOTE | 2024-12-08 12:13 | DVHDSRES ---
Discharge Summary Date of Admission Resident Creating Document: MARINA HWANG RESIDENT Nov 30, 2024 at 18:27 Date of Discharge: Dec 08, 2024 Admitting Diagnosis Hematuria, dysuria due to Complicated Urinary tract infection Wounds: No large wounds Labs/Diagnostic Data: Laboratory Results Test 12/08/24 05:50 12/02/24 11:51 12/01/24 17:48 12/01/24 13:05 White Blood Count 10.0 10^3/uL (4.4-10.8) Red Blood Count 5.10 10^6/uL (4.0-5.20) Hemoglobin 14.2 g/dL (12.2-16.2) Hematocrit 43.5 % (36.0-46.0) Mean Corpuscular Volume 85.3 fL (80.0-100.0) Mean Corpuscular Hemoglobin 27.9 pg (28.0-32.0) Mean Corpuscular Hemoglobin Concent 32.7 g/dL (32.0-36.0) Red Cell Distribution Width 16.3 % (11.8-14.3) Platelet Count 223 10^3/uL (140-450) Mean Platelet Volume 8.4 fL (6.9-10.8) Neutrophils (%) (Auto) 57.4 % (37.0-80.0) Lymphocytes (%) (Auto) 31.2 % (10.0-50.0) Monocytes (%) (Auto) 7.4 % (0.0-12.0) Eosinophils (%) (Auto) 3.4 % (0.0-7.0) Basophils (%) (Auto) 0.6 % (0.0-2.0) Neutrophils # (Auto) 5.7 10 ^3/uL (1.6-8.6) Lymphocytes # (Auto) 3.1 10 ^3/uL (0.4-5.4) Monocytes # (Auto) 0.7 10 ^3/uL (0-1.3) Eosinophils # (Auto) 0.3 10 ^3/uL (0-0.8) Basophils # (Auto) 0.1 10 ^3/uL (0-0.2) Nucleated Red Blood Cells 0.2 % Sodium Level 138 mmol/L (136-145) Potassium Level 4.2 mmol/L (3.5-5.1) Chloride Level 106 mmol/L (98-107) Carbon Dioxide Level 23 mmol/L (20-31) Anion Gap 9 (5-15) Blood Urea Nitrogen 17 mg/dL (9-23) Creatinine 0.70 mg/dL (0.550-1.02) Glomerular Filtration Rate Calc 109 mL/min (>90) BUN/Creatinine Ratio 24.3 (10.0-20.0) Serum Glucose 89 mg/dL (74-106) Calcium Level 9.4 mg/dL (8.7-10.4) Total Bilirubin 0.3 mg/dL (0.2-1.0) Aspartate Amino Transferase (AST) 15 U/L (13-40) Alanine Aminotransferase (ALT) 10 U/L (7-40) Alkaline Phosphatase 46 U/L (46-116) Total Protein 7.0 g/dL (5.7-8.2) Albumin 4.2 g/dL (3.2-4.8) Prothrombin Time 10.3 sec (9.3-11.8) Prothrombin Time INR 0.97 (0.9-1.15) Activated Partial Thromboplast Time 29.5 SEC (24.5-34.5) Beta HCG, Quantitative 1.7 mIU/mL (1.5-4.2) Anti-Nuclear Antibody Comment Comment (.) EUGENIE-1 Antibody <0.2 AI (0.0-0.9) SS-A/Ro Antibody <0.2 AI (0.0-0.9) SS-B/La Antibody <0.2 AI (0.0-0.9) Sm Antibody <0.2 AI (0.0-0.9) MEMBERSHIP SALES ADVISOR Antibody <0.2 AI (0.0-0.9) Scl-70 (Scleroderma) Antibody <0.2 AI (0.0-0.9) Anti-Double Strand DNA Antibody <1 IU/mL (0-9) Chromatin Antibody <0.2 AI (0.0-0.9) Centromere B Antibody <0.2 AI (0.0-0.9) Erythrocyte Sedimentation Rate 11 mm/hr (0-20) C-Reactive Protein High Sensitivity 0.94 mg/dL (<1.0) Test 11/30/24 11:15 Urine Color Red (Yellow) Urine Clarity Cloudy (Clear) Urine pH 7.5 (5.0-9.0) Urine Specific [place] 1.030 (1.001-1.035) Urine Protein 2+ (Negative) Urine Ketones Negative (Negative) Urine Blood 3+ /uL (Negative) Urine Nitrite Negative (Negative) Urine Bilirubin Negative (Negative) Urine Urobilinogen Normal mg/dL (Negative) Urine Leukocyte Esterase 1+ /uL (Negative) Urine RBC 08356 /hpf (0 - 4) Urine Microscopic WBC 14 /HPF (0-5) Urine Squamous Epithelial Cells Mod /hpf (<5) Urine Bacteria Few /hpf (None Seen) Urine Glucose Normal mg/dL (Normal) Urine Test Negative (Negative) Other Laboratory Tests 12/08/24 05:50 Brief Hx & Hospital Course: Brief history: Eli Morataya is a 44-year-old female with past medical history of Fentress's disease, lupus, MS, fibromyalgia, presented to the ER with chief complaints of urinating blood clots. Hematuria with blood clots started 2 days before the admission. Eventually, her symptoms worsened, she started complaining of associated pain, nausea, vomiting, chills which urged her visit to the hospital. The pain is sharp, burning, intermittent, radiates from her flank to the pelvic region. She also complained of associated burning micturition, dysuria. No history of fever, injury, diarrhea, constipation. She reported multiple episodes of UTI and nephrolithiasis in the past. Her at-home medications involve hydrocortisone, fludrocortisone, levothyroxine, Protonix, gabapentin, Flexeril, Robaxin, Zofran, Dilaudid. She is following pain control, with 4 mg Dilaudid q4hr. Hospital course: She was admitted along the lines of dysuria, hematuria. On admission, she had tachycardia, hypertension. Her initial labs revealed red color urine, RBCs [address]. [address] revealed no acute abnormality. Initially, she was started on pain management and IV ceftriaxone for UTI. Urology was consulted, recommendation included outpatient cystoscopy, TBA. Her urine culture came out to be positive for pseudomonas, antibiotic was switched to Zosyn. Patient was treated on the line of complicated UTI likely pyelonephritis. She continued antibiotic course, eventually her symptoms improved. Today, her labs revealed normal hemoglobin, hematocrit. She is stable for discharge on doxycycline 100 mg twice daily and will follow-up with urology as outpatient, and with PCP in 1 week. Discharge diagnosis: Complicated Urinary tract infection likely Pyelonephritis (Pseudomonas) Hematuria, likely due to UTI Hemorrhagic cystitis Immunocompromised state Sepsis due to complicated UTI Pyelonephritis, possible Hematuria, due to UTI Lupus nephritis, possible Nephrolithiasis, ruled out Intractable pain abdomen, nausea, vomiting due to above Neutrophilic Leukocytosis, multifactorial sepsis and steroids History of Killian's disease History of lupus History of MS History of fibromyalgia Hyperkalemia Hypercalcemia Obesity Class I, with BMI 33.4 Discharge plan: Follow with PCP 1 week Follow with PCP annually to monitor incidental pulmonary nodule of [address] scan. Follow-up with Urology outpatient for cystoscopy, TBA. Continue home medications. Complete doxycycline 100 Mg twice daily for 2 weeks antibiotic course. Consults/Reason for consult Urology consulted, recommending continuing antibiotic course, follow-up outpatient for cystoscopy, TBA. Operations or Procedures CT axial images of the abdomen and pelvis are obtained with intravenous contrast. Coronal and sagittal reformats were obtained. Radiation Dose Information: CTDI volume is 22.34 mGy. Dose-length product is 1341.41 mGy*cm Comparison: None FINDINGS: Lung bases demonstrate 6 mm right middle lobe pulmonary solid nodule. Adrenal glands unremarkable spleen measures 12 cm AP. Pancreas unremarkable. Cholecystectomy. No enhancing hepatic lesion. The kidneys demonstrate no hydronephrosis. 2 mm nonobstructing left renal calculus. 1.8 cm left renal cyst. Subcentimeter right renal cyst. The bilateral ureters are nondistended. Bladder partially distended with contrast. No definitive bladder filling defect identified. Stomach is partially distended. Small bowel loops demonstrate Fecal like contents. Moderate volume stool in the colon. Normal appendix. Abdominal aorta normal in caliber. No free pelvic fluid. No inguinal lymphadenopathy. [id number] bilateral sacroiliac degenerative joint disease. IMPRESSION: Nonobstructing left renal calculus measuring 2 mm. No hydronephrosis. Cholecystectomy. 6 mm right middle lobe pulmonary nodule. Recommend follow-up per Fleischner society criteria. Moderate volume stool in the colon. Fecal like contents within the small bowel which can be seen with ileus, hypomotility, bowel obstruction. ---- US BLADDER History: rule out any obstruction and structural disease, clots Comparison: None Date: 12/01/2024 01:35 PM Technique: Grayscale and color Doppler ultrasound of the pelvis was obtained. Pre-and postvoid images of the bladder were obtained. Findings: Bladder appears distended with debris noted at the base of the bladder. Correlate with UA. IMPRESSION: Bladder appears distended with debris noted at the base of the bladder. Correlate with UA. ---- CT CT AB PEL WO CON-NO ORAL OR IV INDICATION: left flank pain, hematuria EXAM DATE: 11/30/2024 02:58 PM COMPARISON: None RADIATION DOSE: CTDIvol: 17 mGy, DLP: 1060 mGy*cm PROCEDURE: Helical CT images were obtained of the abdomen and pelvis without IV contrast Sagittal and coronal reconstructions are provided. ORAL CONTRAST: None. ADDITIONAL IMAGES / REFORMATS: None All CT scans at this medical facility are performed using dose modulation techniques as appropriate to a performed exam including the following: Automated exposure control was utilized; adjustment of the MA and/or KV according to patient size; and use of iterative reconstruction technique. FINDINGS: LUNG BASE: Normal. LIVER: Normal. GALLBLADDER AND BILIARY TREE: Cholecystectomy clips. No intra- or extrahepatic biliary ductal dilation. PANCREAS: Normal. SPLEEN: Normal. BOWEL: Normal. Normal appendix. ADRENALS: Normal. KIDNEYS AND URETER: Normal. BLADDER: Normal. REPRODUCTIVE ORGANS: Normal. LYMPH NODES:No lymphadenopathy. PERITONEUM: No ascites or free air. No other fluid collection. VESSELS: Scattered atherosclerotic calcifications are noted. RETROPERITONEUM: Normal. ABDOMINAL WALL: Normal. BONES: Scattered osseous degenerative changes are noted. IMPRESSION: No acute intraabdominal abnormality. No kidney stones are seen. Condition at Discharge: Stable Final Diagnosis/Problems List Complicated Urinary tract infection likely Pyelonephritis (Pseudomonas) Hematuria, likely due to UTI Hemorrhagic cystitis Immunocompromised state Sepsis due to complicated UTI Pyelonephritis, possible Hematuria, due to UTI Lupus nephritis, possible Nephrolithiasis, ruled out Intractable pain abdomen, nausea, vomiting due to above Neutrophilic Leukocytosis, multifactorial sepsis and steroids History of Fentress's disease History of lupus History of MS History of fibromyalgia Hyperkalemia Hypercalcemia Obesity Class I, with BMI 33.4 Discharge Disposition: Home Discharge Instruct/Medications Diet: Regular Activity: No Restrictions, As Tolerated Follow Up/Referral: Follow up with the PCP within a week Medications: as per EHR Continued Medications: Doxycycline Hyclate (Doxycycline Hyclate) 100 Mg Tab 1 TAB PO BID, #14 TAB Care Plan: Follow with PCP 1 week Follow with PCP annually to monitor incidental pulmonary nodule of [address] scan. Follow-up with Urology outpatient for cystoscopy, TBA. Continue home medications. Complete doxycycline 100 Mg twice daily for 2 weeks antibiotic course. Scheduled Doxycycline Hyclate (Doxycycline Hyclate), 1 TAB PO BID Discharge Statement: "Patient was advised to return to the ER or call 911 if any headaches, dizziness, shortness of breath, chest pain, abdominal pain, bleeding, fevers, or worsening of medical condition. Patient was counseled about treatment plan, medications, possible side effects, patientverbalized understanding. All questions were answered to the best of my ability. This discharge took greater then 30 minutes in planning, reviewing documentation, counseling the patient, and discussing with other team members." ASSESSMENT ASSESSMENT Assessment #Complicated Urinary tract infection likely Pyelonephritis #Hematuria, likely due to UTI #Lupus nephritis, possible #Nephrolithiasis, ruled out #Intractable pain abdomen, nausea, vomiting due to above #Leukocytosis #History of Fentress's disease #History of lupus #History of MS #History of fibromyalgia #Hyperkalemia #Obesity Class I, with BMI 30.6 MARINA HWANG RESIDENT Dec 08, 2024 12:13
[2024-12-08 12:32] VITALS: BP 131/86; PULSE 92; RESP 19; TEMP 97.6; O2SAT 100
== END 2024-12-08 12:55 | disposition home or self-care (01) | DRG 720 ==
LOC: ER 11:14 → OVERFLOW 18:27 → CENTRAL 22:18
PROVIDERS: ADMIT Student in an Organized Health Care Education/Training Program; ATTEND Student in an Organized Health Care Education/Training Program
DX: A41.9 Sepsis, unspecified organism (principal); D84.89 Other immunodeficiencies; M32.14 Glomerular disease in systemic lupus erythematosus; E27.1 Primary adrenocortical insufficiency; N12 Tubulo-interstitial nephritis, not specified as acute or chronic; N30.01 Acute cystitis with hematuria; F41.9 Anxiety disorder, unspecified; E87.5 Hyperkalemia; E66.811 Obesity, class 1; E83.52 Hypercalcemia; M79.7 Fibromyalgia; J45.909 Unspecified asthma, uncomplicated; Z88.2 Allergy status to sulfonamides; Z68.30 Body mass index [BMI] 30.0-30.9, adult; Z88.1 Allergy status to other antibiotic agents; Z88.8 Allergy status to other drugs, medicaments and biological substances; Z87.11 Personal history of peptic ulcer disease; Z90.49 Acquired absence of other specified parts of digestive tract; Z82.62 Family history of osteoporosis; Z82.49 Family history of ischemic heart disease and other diseases of the circulatory system; Z81.8 Family history of other mental and behavioral disorders; Z83.3 Family history of diabetes mellitus; Z79.899 Other long term (current) drug therapy
CPT/HCPCS: 36415; 74176; 74177; 76857; 80048; 80053; 81001; 81025; 83516; 84702; 85025; 85610; 85652; 85730; 86141; 86225; 86235; 87040; 87086; 87088; 87186; 96374; 99291; G0378; J2405; J2543; Q0162

== ENCOUNTER 2024-12-25 01:43 | Emergency (ER) | payer MEDICAID ==
[~2024-12-25] VITALS: Ht 167.6 cm; Wt 93.0 kg
--- NOTE | 2024-12-25 02:39 | ED.PDOC ---
General HPI Comments 44-year-old female presents to ER with urinary complaint x3 days. Patient reports that she has been experiencing burning with urination with associated hematuria and lower abdominal pain x 3 days. Patient also endorses lower lumbar back pain x 1 day s/p slipping and hitting her lower lumbar spine against a step. She rates her current pain a 9/10 and presents to ER ambulatory on arrival, with steady gait, in mild distress. Denies fever, body aches, chills, night sweats, nausea/vomiting, pelvic pain, flank pain, further changes in urination or any further symptoms/complaints Chief Complaint: Urinary Time Seen by MD: 01:52 Primary Care Provider: DR Crispin ADKINS Reviewed notes: Nurses Notes, Medications, Allergies Allergies: Coded Allergies: Acetaminophen (Verified Allergy, Severe, hives, 12/01/24) Ketorolac Tromethamine (Verified Allergy, Severe, 11/30/24) Tramadol (Verified Allergy, Severe, 11/30/24) Ciprofloxacin (Verified Allergy, Unknown, 11/30/24) Diphenhydramine (Verified Allergy, Unknown, 05/13/14) Hydroxychloroquine (Verified Allergy, Unknown, 05/13/14) Prochlorperazine (Verified Allergy, Unknown, 05/13/14) Sulfa Antibiotics (Verified Allergy, Unknown, 05/13/14) Uncoded Allergies: ANTIEMETICS (Allergy, Severe, 11/30/24) Home Meds Active Scripts Doxycycline Hyclate (DOXYCYCLINE HYCLATE) 100 Mg Tab, 1 TAB PO BID, #14 TAB Prov:ISRAEL JOSEPH MD 09/24/16 Information Source: Patient Mode of Arrival: Ambulatory Past Medical History PAST MEDICAL HISTORY: Anxiety, Asthma, PUD, Seizures Past Medical History (Other): Fibromyalgia Sjogren's syndrome Surgical History: Cholecystectomy 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 History Family History Family History: No family hx of HTN, Unobtainable Social History Smoker: Non-Smoker Alcohol: Denies ETOH Use Drugs: Denies Drug Use Lives In: Home Constitutional: denies: chills, diaphoresis, fatigue, fever, malaise, sweats, weakness, others EENTM: denies: blurred vision, double vision, ear bleeding, ear discharge, ear drainage, ear pain, ear ringing, eye pain, eye redness, hearing loss, mouth pain, mouth swelling, nasal discharge, nose bleeding, nose congestion, nose pain, photophobia, tearing, throat pain, throat swelling, voice changes, others Respiratory: denies: cough, hemoptysis, orthopnea, SOB at rest, shortness of breath, SOB with excertion, stridor, wheezing, others Cardiovascular: denies: chest pain, dizzy spells, diaphoresis, Dyspnea on exertion, edema, irregular heart beat, left arm pain, lightheadedness, palpitations, PND, syncope, others Gastrointestinal: reports: others (As stated in HPI) Genitourinary: reports: others (As stated in HPI) Neurological: denies: dizziness, fainting, headache, left sided numbness, left sided weakness, numbness, paresthesia, pre-existing deficit, right sided numbness, right sided weakness, seizure, speech problems, tingling, tremors, weakness, others Musculoskeletal: reports: others (As stated in HPI) Integumetry: denies: bruises, change in color, change in hair/nails, dryness, laceration, lesions, lumps, rash, wounds, others Allergic/Immunocompromised: denies: Difficulty Healing, Frequent Infections, Hives, Itching, others Hematologic/Lymphatic: denies: anemia, blood clots, easy bleeding, easy bruising, swollen glands, others Endocrine: denies: excessive hunger, excessive sweating, excessive thirst, excessive urination, flushing, intolerance to cold, intolerance to heat, unexplained weight gain, unexplained weight loss, others Psychiatric: denies: anxiety, bipolar disorder, depression, hopeless, panic disorder, schizophrenia, sleepless, suicidal, others Physical Exam General Appearance: Mild Distress, Obese HEENT: PERRL/EOMI Neck: Full Range of Motion, Non-Tender, Normal Respiratory: Chest Non-Tender, Lungs Clear, No Accessory Muscle Use, No Respiratory Distress, Normal Breath Sounds Cardiovascular: No Murmur, No Gallop, Regular Rate/Rhythm Breast Exam: Deferred Gastrointestinal: Non Tender, No Pulsatile Mass, Soft, Suprapubic (TTP noted) Genitalia: Deferred Pelvic: Deferred Rectal: Deferred Extremities: Normal capillary refill, Normal range of motion Musculoskeletal : Extremity Location: Back (TTP to bilateral lower lumbar paraspinals noted. No TTP to bilateral flanks or CVA tenderness noted bilaterally. No skin changes noted) Neurologic: Alert, No Motor Deficits, No Sensory Deficits Cerebellar Function: Normal Reflexes: Normal Skin: Dry, Normal Color, Warm Peripheral Pulses: 2+ Radial (R), 2+ Radial (L), 2+ Brachial (R), 2+ Brachial (L) Lymphatic: No Adenopathy Was a procedure done? Was a procedure done?: No Sedation Sedation?: No Differential Diagnosis Kidney stone (Female): Urinary obstruction Urinary Problem (Female): Pyelonephritis, Urinary retention, Urolithiasis X-Ray, Labs, Meds, VS Vital Signs Date Time Temp Pulse Resp B/P (MAP) Pulse Ox O2 Delivery O2 Flow Rate FiO2 12/25/24 01:44 98.2 18 18 120/75 96 98.2 Lab Test 12/25/24 03:01 12/25/24 02:19 Range/Units White Blood Count 5.0 4.4-10.8 10^3/uL Red Blood Count 4.61 4.0-5.20 10^6/uL Hemoglobin 12.7 12.2-16.2 g/dL Hematocrit 37.8 36.0-46.0 % Mean Corpuscular Volume 82.0 80.0-100.0 fL Mean Corpuscular Hemoglobin 27.6 L 28.0-32.0 pg Mean Corpuscular Hemoglobin Concent 33.7 32.0-36.0 g/dL Red Cell Distribution Width 16.0 H 11.8-14.3 % Platelet Count 242 140-450 10^3/uL Mean Platelet Volume 7.8 6.9-10.8 fL Neutrophils (%) (Auto) 40.0 37.0-80.0 % Lymphocytes (%) (Auto) 41.7 10.0-50.0 % Monocytes (%) (Auto) 10.2 0.0-12.0 % Eosinophils (%) (Auto) 7.6 H 0.0-7.0 % Basophils (%) (Auto) 0.5 0.0-2.0 % Neutrophils # (Auto) 2.0 1.6-8.6 10 ^3/uL Lymphocytes # (Auto) 2.1 0.4-5.4 10 ^3/uL Monocytes # (Auto) 0.5 0-1.3 10 ^3/uL Eosinophils # (Auto) 0.4 0-0.8 10 ^3/uL Basophils # (Auto) 0 0-0.2 10 ^3/uL Nucleated Red Blood Cells 0.0 % Prothrombin Time 10.1 9.3-11.8 sec Prothrombin Time INR 0.95 0.9-1.15 Activated Partial Thromboplast Time 31.1 24.5-34.5 SEC Sodium Level 141 136-145 mmol/L Potassium Level 3.6 3.5-5.1 mmol/L Chloride Level 107 98-107 mmol/L Carbon Dioxide Level 27 20-31 mmol/L Anion Gap 7 5-15 Blood Urea Nitrogen 20 9-23 mg/dL Creatinine 0.67 0.550-1.02 mg/dL Glomerular Filtration Rate Calc 110 >90 mL/min BUN/Creatinine Ratio 29.9 H 10.0-20.0 Serum Glucose 87 74-106 mg/dL Calcium Level 9.2 8.7-10.4 mg/dL Total Bilirubin 0.5 0.2-1.0 mg/dL Aspartate Amino Transferase (AST) 27 13-40 U/L Alanine Aminotransferase (ALT) 21 7-40 U/L Alkaline Phosphatase 47 46-116 U/L Total Protein 7.3 5.7-8.2 g/dL Albumin 4.5 3.2-4.8 g/dL Urine Color Dark-brown Yellow Urine Clarity Turbid H Clear Urine pH 5.5 5.0-9.0 Urine Specific [place] 1.034 1.001-1.035 Urine Protein 2+ H Negative Urine Ketones Trace Negative Urine Blood 3+ H Negative /uL Urine Nitrite Negative Negative Urine Bilirubin Negative Negative Urine Urobilinogen Normal Negative mg/dL Urine Leukocyte Esterase Trace Negative /uL Urine RBC 79 0 - 4 /hpf Urine Microscopic WBC 10 H 0-5 /HPF Urine Squamous Epithelial Cells Few <5 /hpf Urine Calcium Oxalate Crystals Many None Seen Urine Bacteria None seen None Seen /hpf Urine Mucus Few None Seen Urine Glucose Normal Normal mg/dL PATIENT: LEILANI POLLACK EACCT: [id number] UNIT: [id number] : 1980 LOC: ER ROOM / BED: / AGE / SEX: 44 / F ADM STATUS: REG ER SERVICE 0226 ORDERING PHYSICIAN: GUNNER HARRELL PROCEDURE(s): ABPL - CT AB PEL WO CON-NO ORAL OR IV REASON: abdominal pain/lower lumbar back pain ORDER NUMBER(s): [id number], ACCESSION NUMBER(s): [id number] Exam: CT CT AB PEL WO CON-NO ORAL OR IV History: abdominal pain/lower lumbar back pain Comparison Study: CT CT AB PEL WO CON-NO ORAL OR IV on DOS: 11/30/24 TECHNIQUE: Multidetector CT of the abdomen was performed from lung bases to pubic symphysis. Imaging was performed without IV contrast. Axial, coronal and sagittal multiplanar reformats were obtained from the axial data set by the technologist. Radiation Dose Information: Dose-length product is 943.97 mGy*cm FINDINGS: Limited sections of the lung bases demonstrate no focal pulmonary mass. The liver, spleen, pancreas, and both adrenal glands demonstrate no acute findings. The gallbladder is surgically removed. The stomach is unremarkable. The small bowel loops are not dilated. The appendix is normal. No colonic obstruction. Moderate stool burden which may reflect constipation. Bilateral kidneys are unremarkable. No hydronephrosis. The urinary bladder is partially distended. No significant lymphadenopathy. No free air or free fluid. The aorta and IVC demonstrate no acute findings. Visualized osseous structures demonstrate no acute abnormality. IMPRESSION: 1. No acute intra-abdominal process. ATED BY: LEIF MCCOLLUM MD DICTATED DATE/TIME: 12/25/24414 SIGNED BY: LEIF MCCOLLUM MD SIGNED DATE/TIME: 12/25/24414 CC: CBC reviewed-unremarkable BMP reviewed without any significant abnormalities CT abdomen/pelvis without contrast reviewed Urinalysis reviewed-urine blood 3+, urine leukocyte esterase trace Rocephin 1 g IM ordered Morphine 2 mg IM ordered Patient had improvement in symptoms, vitals stable and in no distress prior to discharge Advised to drink plenty of fluids Advised to follow up with PCP and Urology in 1-2 days Patient verbalized understanding and agreeable with current plan of care Advised to return to ER immediately if symptoms worsen Images Reviewed?: Images reviewed and evaluated by me Time of 1ST Reevaluation: 02:38 Reevaluation 1ST: N/A Patient Education/Counseling: Diagnosis, Treatment, Prognosis, Need For Follow Up Family Education/Counseling: No Family Present SEPSIS Sepsis Screen Date sepsis recognized/suspect: Dec 25, 2024 Time Sepsis recognized/suspect: 0144 Recent Procedure: No On Antibiotic Therapy: No Respiratory Rate >20: No Heart Rate >90: Yes Temp<36 C (96.8 F) or >38.3 C: No SBP <90 or MAP <65 mmHG: No New Acute Mental Status Change: No Is the patient on CPAP, BIPAP,: No Physician Orders Ct Ab Pel Wo Con-No Oral Or Iv (12/25/24 02:26) Vital Signs Date Time Temp Pulse Resp B/P (MAP) Pulse Ox O2 Delivery O2 Flow Rate FiO2 12/25/24 01:44 98.2 18 18 120/75 96 98.2 Laboratory Tests Test 12/25/24 03:01 White Blood Count 5.0 10^3/uL (4.4-10.8) Departure 1 Departure Time of Disposition: 04:50 Impression: Primary Impression: UTI (urinary tract infection) Qualified Codes: N30.01 - Acute cystitis with hematuria Disposition: HOME / SELF CARE / HOMELESS Condition: Stable e-Prescriptions Cephalexin Monohydrate (Cephalexin) 500 Mg Cap 500 MG PO QID for 7 Days, #28 CAP 0 Refills Prov: GUNNER HARRELL 12/25/24 Discharged With: Friend Critical Care Note Critical Care Time?: No Stability Stability form required: No Heart Score Heart Score: Heart Score Response (Comments) Value History N/A 0 EKG N/A 0 Age N/A 0 Risk Factors N/A 0 Troponin N/A 0 Total 0 GUNNER HARRELL Dec 25, 2024 02:39
[2024-12-25 03:26] LABS: Hematocrit 37.8 % (36.0-46.0); Hemoglobin 12.7 g/dL (12.2-16.2); Mean Corpuscular Hemoglobin 27.6 pg (28.0-32.0); Mean Corpuscular Volume 82.0 fL (80.0-100.0); Nucleated Red Blood Cells % 0.0 %
[2024-12-25 03:44] LABS: Alanine Aminotransferase 21 U/L (7-40); Albumin 4.5 g/dL (3.2-4.8); Alkaline Phosphatase 47 U/L (46-116); Anion Gap 7 (5-15); BUN/Creatinine Ratio 29.9 (10.0-20.0); Bilirubin, Total 0.5 mg/dL (0.2-1.0); Blood Urea Nitrogen 20 mg/dL (9-23); Calcium 9.2 mg/dL (8.7-10.4); Carbon Dioxide 27 mmol/L (20-31); Chloride 107 mmol/L (98-107); Glucose 87 mg/dL (74-106); Potassium 3.6 mmol/L (3.5-5.1); Sodium 141 mmol/L (136-145); Total Protein 7.3 g/dL (5.7-8.2)
--- NOTE | 2024-12-25 04:18 | DVH ---
Exam: CT CT AB PEL WO CON-NO ORAL OR IV History: abdominal pain/lower lumbar back pain Comparison Study: CT CT AB PEL WO CON-NO ORAL OR IV on DOS: 11/30/24 TECHNIQUE: Multidetector CT of the abdomen was performed from lung bases to pubic symphysis. Imaging was performed without IV contrast. Axial, coronal and sagittal multiplanar reformats were obtained fr om the axial data set by the technologist. Radiation Dose Information: Dose-length product is 943.97 mGy*cm FINDINGS: Limited sections of the lung bases demonstrate no focal pulmonary mass. The liver, spleen, pancreas, and both adrenal glands demonstrate no acute findings. The gallbladder is surgically removed. The stomach is unremarkable. The small bowel loops are not dilated. The appendix is normal. No colonic obstruction. Moderate stool burden which may reflect constipation. Bilateral kidneys are unremarkable. No hydronephrosis. The urinary bladder is partially distended. No significant lymphadenopathy. No free air or free fluid. The aorta and IVC demonstrate no acute findings. Visualized osseous structures demonstrate no acute abnormality. IMPRESSION: 1. No acute intra-abdominal process.
[2024-12-25 04:31] LABS: Urine Protein, UAD 2+ (Negative)
[2024-12-25 04:38] LABS: INR 0.95 (0.9-1.15); Partial Thromboplastin Time 31.1 SEC (24.5-34.5); Prothrombin Time 10.1 sec (9.3-11.8)
[2024-12-25] MEDS ORDERED: CEPH500C PO (04:52)
[2024-12-25] MEDS: cefTRIAXone SOD 1,000 MG VL IM ONE (05:00)
[2024-12-25] MEDS: MORPHINE SULFATE INJ 2 MG/ml SYRG IM ONE (05:00)
[2024-12-25 05:57] VITALS: TEMP 98.3; O2SAT 98
[2024-12-25 07:08] VITALS: BP 118/54; PULSE 97; RESP 18
[2024-12-25] MEDS: HYDROmorphone HCL 2 MG/ML VL/or syr IM ONE (07:08)
== END 2024-12-25 07:19 | disposition home or self-care (01) ==
LOC: ER 01:51
DX: N39.0 Urinary tract infection, site not specified (principal); F41.9 Anxiety disorder, unspecified; M79.7 Fibromyalgia; M35.00 Sjogren syndrome, unspecified; Z79.899 Other long term (current) drug therapy; Z90.49 Acquired absence of other specified parts of digestive tract; Z88.2 Allergy status to sulfonamides; Z87.11 Personal history of peptic ulcer disease; Z88.1 Allergy status to other antibiotic agents; Z88.5 Allergy status to narcotic agent
CPT/HCPCS: 36415; 74176; 80053; 81001; 85025; 85610; 85730; 96372; 99285; J1171

== ENCOUNTER 2024-12-25 07:39 | Emergency (ER) | payer MEDICAID ==
[~2024-12-25] VITALS: Ht 167.6 cm; Wt 93.1 kg
[~2024-12-25 07:39] MED LIST changes: +CEPH500C PO
[2024-12-25 07:41] VITALS: BP 135/81; PULSE 90; RESP 13; TEMP 98.3; O2SAT 95
--- NOTE | 2024-12-25 08:12 | ED.PDOC ---
History of Present Illness HPI Comments Patient was in the ER early today, was discharged and came back. Here is the HPI from earlier:"44-year-old female presents to ER with urinary complaint x3 days. Patient reports that she has been experiencing burning with urination with associated hematuria and lower abdominal pain x 3 days. Patient also endorses lower lumbar back pain x 1 day s/p slipping and hitting her lower lumbar spine against a step. She rates her current pain a 9/10 and presents to ER ambulatory on arrival, with steady gait, in mild distress. Denies fever, body aches, chills, night sweats, nausea/vomiting, pelvic pain, flank pain, further changes in urination or any further symptoms/complaints" Chief Complaint: Nausea/Vomiting Time Seen by MD: 08:05 Primary Care Provider: DR Crispin ADKINS Reviewed Notes: Nurses Notes, Medications, Allergies Allergies: Coded Allergies: Acetaminophen (Verified Allergy, Severe, hives, 12/01/24) Ketorolac Tromethamine (Verified Allergy, Severe, 11/30/24) Tramadol (Verified Allergy, Severe, 11/30/24) Morphine and Codeine (Verified Allergy, Intermediate, 12/25/24) Ciprofloxacin (Verified Allergy, Unknown, 11/30/24) Diphenhydramine (Verified Allergy, Unknown, 05/13/14) Hydroxychloroquine (Verified Allergy, Unknown, 05/13/14) Prochlorperazine (Verified Allergy, Unknown, 05/13/14) Sulfa Antibiotics (Verified Allergy, Unknown, 05/13/14) Uncoded Allergies: ANTIEMETICS (Allergy, Severe, 11/30/24) Home Meds Active Scripts Cephalexin Monohydrate (Cephalexin) 500 Mg Cap, 500 MG PO QID for 7 Days, #28 CAP 0 Refills Prov:GUNNER HARRELL 12/25/24 Doxycycline Hyclate (DOXYCYCLINE HYCLATE) 100 Mg Tab, 1 TAB PO BID, #14 TAB Prov:ISRAEL JOSEPH MD 09/24/16 Information Source: Patient Mode of Arrival: Ambulatory Severity: Moderate Timing: Hours Duration: Since onset, Hours Prehospital treatment: None Past Medical History PAST MEDICAL HISTORY: Anxiety, Asthma, PUD, Seizures Past Medical History (Other): Fibromyalgia,Sjogrens syndrome Surgical History: Cholecystectomy 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 Family History Family History: Reviewed,noncontributory to illness, Unknown Social History Smoker: Non-Smoker Alcohol: Denies ETOH Use Drugs: Denies Drug Use Lives In: Home Constitutional: denies: chills, diaphoresis, fatigue, fever, malaise, sweats, weakness, others EENTM: denies: blurred vision, double vision, ear bleeding, ear discharge, ear drainage, ear pain, ear ringing, eye pain, eye redness, hearing loss, mouth pain, mouth swelling, nasal discharge, nose bleeding, nose congestion, nose pain, photophobia, tearing, throat pain, throat swelling, voice changes, others Respiratory: denies: cough, hemoptysis, orthopnea, SOB at rest, shortness of breath, SOB with excertion, stridor, wheezing, others Cardiovascular: denies: chest pain, dizzy spells, diaphoresis, Dyspnea on exertion, edema, irregular heart beat, left arm pain, lightheadedness, palpitations, PND, syncope, others Gastrointestinal: reports: abdominal pain, nausea, vomiting; denies: abdomen distended, blood streaked bowels, constipated, diarrhea, dysphagia, difficulty swallowing, hematemesis, melena, poor appetite, poor fluid intake, rectal bleeding, rectal pain, others Genitourinary: reports: burning, flank pain, pain; denies: abnormal vagina bleeding, dyspareunia, dysuria, frequency, hematuria, incontinence, , vagina discharge, urgency, others Neurological: denies: dizziness, fainting, headache, left sided numbness, left sided weakness, numbness, paresthesia, pre-existing deficit, right sided numbness, right sided weakness, seizure, speech problems, tingling, tremors, weakness, others Musculoskeletal: denies: back pain, gout, joint pain, joint swelling, muscle pain, muscle stiffness, neck pain, others Integumetry: denies: bruises, change in color, change in hair/nails, dryness, laceration, lesions, lumps, rash, wounds, others Allergic/Immunocompromised: denies: Difficulty Healing, Frequent Infections, Hives, Itching, others Hematologic/Lymphatic: denies: anemia, blood clots, easy bleeding, easy bruising, swollen glands, others Endocrine: denies: excessive hunger, excessive sweating, excessive thirst, excessive urination, flushing, intolerance to cold, intolerance to heat, unexplained weight gain, unexplained weight loss, others Psychiatric: denies: anxiety, bipolar disorder, depression, hopeless, panic disorder, schizophrenia, sleepless, suicidal, others All Other Systems: Reviewed and Negative Physical Exam General Appearance: Moderate Distress, Normal HEENT: Normal ENT Inspection, Pharynx Normal, TMs Normal Neck: Full Range of Motion, Non-Tender, Normal, Normal Inspection Respiratory: Chest Non-Tender, Lungs Clear, No Accessory Muscle Use, No Respiratory Distress, Normal Breath Sounds Cardiovascular: No Edema, No JVD, No Murmur, No Gallop, Normal Peripheral Pulses, Regular Rate/Rhythm Breast Exam: Deferred Gastrointestinal: No Organomegaly, Non Tender, No Pulsatile Mass, Normal Bowel Sounds, Soft Genitalia: Deferred Pelvic: Deferred Rectal: Deferred Extremities: No calf tenderness, Normal capillary refill, Normal inspection, Normal range of motion, Non-tender, No pedal edema Musculoskeletal : Apperance: Normal 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 Was a procedure done?: No Differential Dx Considerations may include: Chronic pain Musculoskeletal strain X-Ray, Labs, Meds, VS Vital Signs Date Time Temp Pulse Resp B/P (MAP) Pulse Ox O2 Delivery O2 Flow Rate FiO2 12/25/24 07:41 98.3 90 13 135/81 95 98.3 Time of 1ST Reevaluation: 08:35 Reevaluation 1ST: Unchanged Patient Education/Counseling: Diagnosis, Treatment, Prognosis Family Education/Counseling: No Family Present SEPSIS Sepsis Screen Date sepsis recognized/suspect: Dec 25, 2024 Time Sepsis recognized/suspect: 0741 Recent Procedure: No On Antibiotic Therapy: No Respiratory Rate >20: No Heart Rate >90: No Temp<36 C (96.8 F) or >38.3 C: No SBP <90 or MAP <65 mmHG: No New Acute Mental Status Change: No Is the patient on CPAP, BIPAP,: No Vital Signs Date Time Temp Pulse Resp B/P (MAP) Pulse Ox O2 Delivery O2 Flow Rate FiO2 12/25/24 07:41 98.3 90 13 135/81 95 98.3 Departure 1 Departure Time of Disposition: 10:34 Impression: Primary Impression: Chronic pain Qualified Codes: G89.4 - Chronic pain syndrome Disposition: 07 LEFT AWOL/ELOPED Condition: Good Discharged With: Self Critical Care Note Critical Care Time?: No Stability Stability form required: No Heart Score Heart Score: Heart Score Response (Comments) Value History N/A 0 EKG N/A 0 Age N/A 0 Risk Factors N/A 0 Troponin N/A 0 Total 0 I personally scribed for WHIT SCHAFER MD ([email or web address]) on 12/25/24 at 08:12. Electronically submitted by Isaac Gan ([email or web address]). WHIT SCHAFER MD Dec 25, 2024 08:12
== END 2024-12-25 10:33 | disposition left against medical advice (07) ==
LOC: ER 07:39
DX: G89.4 Chronic pain syndrome (principal); F41.9 Anxiety disorder, unspecified; J45.909 Unspecified asthma, uncomplicated; Z90.49 Acquired absence of other specified parts of digestive tract; Z88.5 Allergy status to narcotic agent; Z88.2 Allergy status to sulfonamides; Z88.1 Allergy status to other antibiotic agents

== ENCOUNTER 2025-03-07 08:47 | Inpatient (IN) | payer MEDICAID ==
[~2025-03-07] VITALS: Ht 167.6 cm; Wt 93.9 kg
--- NOTE | 2025-03-07 10:08 | ED.PDOC ---
History of Present Illness HPI Comments 45 y.o female presents to the ED with a chief complaint of left flank pain that started two days ago and is radiating to her LLQ. The pain is accompanied by bilateral lower extremity swelling, which is more profound in the left lower leg and appears erythematous. The patient also reports experiencing hematuria and intermittent nausea and vomiting for the past day. Patient states hx of multiple UTIs and kidney stones. Chief Complaint: Abdominal Pain Time Seen by MD: 09:49 Primary Care Provider: DR Crispin ADKINS Reviewed Notes: Nurses Notes, Medications, Allergies Allergies: Coded Allergies: Acetaminophen (Verified Allergy, Severe, hives, 12/01/24) Ketorolac Tromethamine (Verified Allergy, Severe, 11/30/24) Tramadol (Verified Allergy, Severe, 11/30/24) Morphine and Codeine (Verified Allergy, Intermediate, 12/25/24) Ciprofloxacin (Verified Allergy, Unknown, 11/30/24) Diphenhydramine (Verified Allergy, Unknown, 05/13/14) Hydroxychloroquine (Verified Allergy, Unknown, 05/13/14) Prochlorperazine (Verified Allergy, Unknown, 05/13/14) Sulfa Antibiotics (Verified Allergy, Unknown, 05/13/14) Uncoded Allergies: ANTIEMETICS (Allergy, Severe, 11/30/24) Home Meds Active Scripts Cephalexin Monohydrate (Cephalexin) 500 Mg Cap, 500 MG PO QID for 7 Days, #28 C AP 0 Refills Prov:GUNNER HARRELL 12/25/24 Doxycycline Hyclate (DOXYCYCLINE HYCLATE) 100 Mg Tab, 1 TAB PO BID, #14 TAB Prov:ISRAEL JOSEPH MD 09/24/16 Information Source: Patient Mode of Arrival: Ambulatory Severity: Moderate Timing: Days Duration: Since onset Past Medical History PAST MEDICAL HISTORY: Anxiety, Asthma, PUD, Seizures Surgical History: Cholecystectomy SENIOR BOOKKEEPER History: No Pertinent SENIOR BOOKKEEPER History Family History Family History: Reviewed,noncontributory to illness, Unknown Social History Smoker: Non-Smoker Alcohol: Denies ETOH Use Drugs: Denies Drug Use Lives In: Home Constitutional: denies: chills, diaphoresis, fatigue, fever, malaise, sweats, weakness, others EENTM: denies: blurred vision, double vision, ear bleeding, ear discharge, ear drainage, ear pain, ear ringing, eye pain, eye redness, hearing loss, mouth pain, mouth swelling, nasal discharge, nose bleeding, nose congestion, nose pain, photophobia, tearing, throat pain, throat swelling, voice changes, others Respiratory: denies: cough, hemoptysis, orthopnea, SOB at rest, shortness of breath, SOB with excertion, stridor, wheezing, others Cardiovascular: denies: chest pain, dizzy spells, diaphoresis, Dyspnea on exertion, edema, irregular heart beat, left arm pain, lightheadedness, palpitations, PND, syncope, others Gastrointestinal: reports: abdominal pain, nausea, vomiting; denies: abdomen distended, blood streaked bowels, constipated, diarrhea, dysphagia, difficulty swallowing, hematemesis, melena, poor appetite, poor fluid intake, rectal bleeding, rectal pain, others Genitourinary: reports: flank pain, hematuria; denies: abnormal vagina bleeding, burning, dyspareunia, dysuria, frequency, incontinence, pain, , vagina discharge, urgency, others Neurological: denies: dizziness, fainting, headache, left sided numbness, left sided weakness, numbness, paresthesia, pre-existing deficit, right sided numbness, right sided weakness, seizure, speech problems, tingling, tremors, weakness, others Musculoskeletal: denies: back pain, gout, joint pain, joint swelling, muscle pain, muscle stiffness, neck pain, others Integumetry: denies: bruises, change in color, change in hair/nails, dryness, laceration, lesions, lumps, rash, wounds, others Allergic/Immunocompromised: denies: Difficulty Healing, Frequent Infections, Hives, Itching, others Hematologic/Lymphatic: denies: anemia, blood clots, easy bleeding, easy bruising, swollen glands, others Endocrine: denies: excessive hunger, excessive sweating, excessive thirst, excessive urination, flushing, intolerance to cold, intolerance to heat, unexplained weight gain, unexplained weight loss, others Psychiatric: denies: anxiety, bipolar disorder, depression, hopeless, panic disorder, schizophrenia, sleepless, suicidal, others All Other Systems: Reviewed and Negative Physical Exam General Appearance: Moderate Distress HEENT: Normal ENT Inspection, Pharynx Normal, TMs Normal Neck: Full Range of Motion, Non-Tender, Normal, Normal Inspection Respiratory: Chest Non-Tender, Lungs Clear, No Accessory Muscle Use, No Respiratory Distress, Normal Breath Sounds Cardiovascular: No Edema, No JVD, No Murmur, No Gallop, Normal Peripheral Pulses, Regular Rate/Rhythm Breast Exam: Deferred Gastrointestinal: No Organomegaly, Non Tender, No Pulsatile Mass, Normal Bowel Sounds, Soft Genitalia: Deferred Pelvic: Deferred Rectal: Deferred Extremities: Swelling (Left lower extremity) Musculoskeletal : Apperance: Normal Neurologic: Alert, aircraft systems repairer II-XII nml as Tested, No Motor Deficits, Normal Affect, Normal Mood, No Sensory Deficits Cerebellar Function: Normal Reflexes: Normal Skin: Dry, Normal Color, Warm Peripheral Pulses: 3+ Radial (R), 3+ Radial (L) Lymphatic: No Adenopathy Was a procedure done? Was a procedure done?: No Differential Dx Considerations may include: UTI, Cellulitis, kidney stones, pancreatitis X-Ray, Labs, Meds, VS Vital Signs Date Time Temp Pulse Resp B/P (MAP) Pulse Ox O2 Delivery O2 Flow Rate FiO2 03/07/25 10:34 99.0 109 18 135/75 (95) 100 99.0 03/07/25 10:34 109 18 100 Room Air 03/07/25 08:48 97.8 113 18 127/78 95 97.8 Lab Test 03/07/25 11:30 03/07/25 10:45 Range/Units Urine Color Pending Urine Clarity Pending Urine pH Pending Urine Specific [place] Pending Urine Protein Pending Urine Ketones Pending Urine Blood Pending Urine Nitrite Pending Urine Bilirubin Pending Urine Urobilinogen Pending Urine Leukocyte Esterase Pending Urine RBC Pending Urine Microscopic WBC Pending Urine Squamous Epithelial Cells Pending Urine Bacteria Pending Urine Glucose Pending White Blood Count 6.1 4.4-10.8 10^3/uL Red Blood Count 4.85 4.0-5.20 10^6/uL Hemoglobin 13.1 12.2-16.2 g/dL Hematocrit 39.6 36.0-46.0 % Mean Corpuscular Volume 81.6 80.0-100.0 fL Mean Corpuscular Hemoglobin 27.1 L 28.0-32.0 pg Mean Corpuscular Hemoglobin Concent 33.2 32.0-36.0 g/dL Red Cell Distribution Width 15.9 H 11.8-14.3 % Platelet Count 293 140-450 10^3/uL Mean Platelet Volume 7.5 6.9-10.8 fL Neutrophils (%) (Auto) 56.7 37.0-80.0 % Lymphocytes (%) (Auto) 31.1 10.0-50.0 % Monocytes (%) (Auto) 7.6 0.0-12.0 % Eosinophils (%) (Auto) 4.0 0.0-7.0 % Basophils (%) (Auto) 0.6 0.0-2.0 % Neutrophils # (Auto) 3.5 1.6-8.6 10 ^3/uL Lymphocytes # (Auto) 1.9 0.4-5.4 10 ^3/uL Monocytes # (Auto) 0.5 0-1.3 10 ^3/uL Eosinophils # (Auto) 0.2 0-0.8 10 ^3/uL Basophils # (Auto) 0 0-0.2 10 ^3/uL Nucleated Red Blood Cells 0.0 % Sodium Level 140 136-145 mmol/L Potassium Level 4.0 3.5-5.1 mmol/L Chloride Level 109 H 98-107 mmol/L Carbon Dioxide Level 25 20-31 mmol/L Anion Gap 6 5-15 Blood Urea Nitrogen 10 9-23 mg/dL Creatinine 0.67 0.550-1.02 mg/dL Glomerular Filtration Rate Calc 109 >90 mL/min BUN/Creatinine Ratio 14.9 10.0-20.0 Serum Glucose 90 74-106 mg/dL Calcium Level 9.2 8.7-10.4 mg/dL Current Medications Medications (Trade) Dose Ordered Sig/Emerson Route Start Time Stop Time Status Last Admin Sodium Chloride 1,000 ml @ 1,000 mls/hr Q1H ONCE IVB 03/07/25 10:30 03/07/25 11:29 DC 03/07/25 13:50 Ceftriaxone Sodium 50 ml @ 100 mls/hr ONCE ONCE IV 03/07/25 12:30 03/07/25 12:59 DC 03/07/25 13:49 Clindamycin Phosphate 50 ml @ 50 mls/hr ONCE ONCE IV 03/07/25 12:30 03/07/25 13:29 DC 03/07/25 13:50 Hydromorphone HCl (Dilaudid Tablet) 4 mg ONCE ONCE PO 03/07/25 14:00 03/07/25 14:01 DC 03/07/25 14:01 Ondansetron HCl (Zofran) 4 mg ONCE ONCE IV 03/07/25 14:00 03/07/25 14:01 DC 03/07/25 14:01 Patient alert. Complaining of abdominal discomfort. Vitals stable. Answering all questions. On examination she does have swelling of the left lower extremity with redness pain Cellulitis. Was given Rocephin. Was given clindamycin. Explained to the patient. Continue monitoring. Time of 1ST Reevaluation: 10:08 Reevaluation 1ST: Unchanged Patient Education/Counseling: Diagnosis, Treatment, Prognosis Family Education/Counseling: No Family Present SEPSIS Sepsis Screen Date sepsis recognized/suspect: Mar 07, 2025 Time Sepsis recognized/suspect: 850 Recent Procedure: No On Antibiotic Therapy: No Respiratory Rate >20: No Heart Rate >90: Yes Temp<36 C (96.8 F) or >38.3 C: No SBP <90 or MAP <65 mmHG: No New Acute Mental Status Change: No Is the patient on CPAP, BIPAP,: No Physician Orders Urinalysis (03/07/25 10:16) Vital Signs Date Time Temp Pulse Resp B/P (MAP) Pulse Ox O2 Delivery O2 Flow Rate FiO2 03/07/25 10:34 99.0 109 18 135/75 (95) 100 99.0 03/07/25 10:34 109 18 100 Room Air 03/07/25 08:48 97.8 113 18 127/78 95 97.8 Laboratory Tests Test 03/07/25 10:45 White Blood Count 6.1 10^3/uL (4.4-10.8) Medications Medications Dose Ordered Sig/Emerson Route Start Time Stop Time Status Last Admin Dose Admin Ceftriaxone Sodium 50 ml @ 100 mls/hr ONCE ONCE IV 03/07/25 12:30 03/07/25 12:59 DC 03/07/25 13:49 Clindamycin Phosphate 50 ml @ 50 mls/hr ONCE ONCE IV 03/07/25 12:30 03/07/25 13:29 DC 03/07/25 13:50 Hydromorphone HCl 4 mg ONCE ONCE PO 03/07/25 14:00 03/07/25 14:01 DC 03/07/25 14:01 Ondansetron HCl 4 mg ONCE ONCE IV 03/07/25 14:00 03/07/25 14:01 DC 03/07/25 14:01 Sodium Chloride 1,000 ml @ 1,000 mls/hr Q1H ONCE IVB 03/07/25 10:30 03/07/25 11:29 DC 03/07/25 13:50 Departure 1 Departure Time of Disposition: 12:21 Impression: Primary Impression: Cellulitis Qualified Codes: L03.116 - Cellulitis of left lower limb Disposition: ADMITTED INPATIENT Admit to: Med Surg Condition: Guarded Critical Care Note Critical Care Time?: No Stability Stability form required: No I personally scribed for WHIT SCHAFER MD ([email or web address]) on 03/07/25 at 10:08. Electronically submitted by Martha Lugo ([facility]). WHIT SCHAFER MD Mar 07, 2025 10:08
[2025-03-07] MEDS: MORPHINE SULFATE 4 MG/ML SYR/VIAL IV ONE (10:30)
[2025-03-07] MEDS: ONDANSETRON HCL 4 MG/2 ML VIAL IV ONE ×2 (10:30→14:01)
[2025-03-07 10:55] LABS: Hematocrit 39.6 % (36.0-46.0); Hemoglobin 13.1 g/dL (12.2-16.2); Mean Corpuscular Hemoglobin 27.1 pg (28.0-32.0); Mean Corpuscular Volume 81.6 fL (80.0-100.0); Nucleated Red Blood Cells % 0.0 %
[2025-03-07 10:59] LABS: Potassium 4.0 mmol/L (3.5-5.1); Sodium 140 mmol/L (136-145)
[2025-03-07 11:00] LABS: Anion Gap 6 (5-15); Calcium 9.2 mg/dL (8.7-10.4); Carbon Dioxide 25 mmol/L (20-31)
[2025-03-07 11:05] LABS: BUN/Creatinine Ratio 14.9 (10.0-20.0); Blood Urea Nitrogen 10 mg/dL (9-23); Chloride 109 mmol/L (98-107); Glucose 90 mg/dL (74-106)
[2025-03-07] MEDS: CLINDAMYCIN 600MG IV 50 ML IV ONE (13:50)
[2025-03-07] MEDS: SODIUM CHLORIDE 0.9% 1,000 ML IVB ONE (13:50)
[2025-03-07 14:46] LABS: Urine Protein, UAD 2+ (Negative)
[2025-03-07] MEDS ORDERED: NITROGLYCERIN 0.4 MG SL TAB SL PRN (16:15)
[2025-03-07] MEDS ORDERED: ACETAMINOPHEN 325 MG TAB PO PRN (16:15)
[2025-03-07] MEDS: SODIUM CHLORIDE 0.9% 1,000 ML IV SCH (16:15)
[2025-03-07] MEDS ORDERED: HYDROcodone-ACET 5/325MG TAB PO PRN (16:15)
[2025-03-07] MEDS ORDERED: MORPHINE SULFATE INJ 2 MG/ml SYRG IV PRN ×2 (16:15)
--- NOTE | 2025-03-07 16:22 | DVHHPRES ---
History of Present Illness Resident Creating Document: CECILY LEAL RESIDENT History of Present Illness 45-year-old female with past medical history of [place]'s disease, lupus, MS, fibromyalgia, presented to the ER with chief complaints of abdominal pain radiating to flank area. Hematuria with blood clots started 2 days before the admission. Next day, her symptoms worsened, she started complaining of associated pain, nausea, vomiting, chills which urged her visit to the hospital. The pain is sharp, burning, intermittent, radiates from her flank to the pelvic region. Past Medical History Past medical history: [place]'s disease, lupus, MS, fibromyalgia, hypothyroidism, anxiety, asthma Review of Systems Review of Systems Constitutional: Complains of chills. Denies weight loss, fever. HEENT: Denies changes in vision and hearing. Respiratory: Denies shortness of breath and cough. Cardiovascular: Denies chest discomfort or palpitations GI: Abdominal pain, nausea, vomiting. Normal bowel habits. : Dysuria and urinary frequency. Musculoskeletal: Denies myalgias and joint pain Skin: Denies rash and pruritus. Neurological: Denies dizziness, headache, vision or hearing problems Allergies: Coded Allergies: Acetaminophen (Verified Allergy, Severe, hives, 12/01/24) Ketorolac Tromethamine (Verified Allergy, Severe, 11/30/24) Tramadol (Verified Allergy, Severe, 11/30/24) Morphine and Codeine (Verified Allergy, Intermediate, 12/25/24) Ciprofloxacin (Verified Allergy, Unknown, 11/30/24) Diphenhydramine (Verified Allergy, Unknown, 05/13/14) Hydroxychloroquine (Verified Allergy, Unknown, 05/13/14) Prochlorperazine (Verified Allergy, Unknown, 05/13/14) Sulfa Antibiotics (Verified Allergy, Unknown, 05/13/14) Uncoded Allergies: ANTIEMETICS (Allergy, Severe, 11/30/24) Exam Vital Signs Vital Signs Date Time Temp Pulse Resp B/P (MAP) Pulse Ox O2 Delivery O2 Flow Rate FiO2 03/07/25 10:34 99.0 109 18 135/75 (95) 100 99.0 03/07/25 10:34 Room Air Exam General: Patient alert and oriented in person, place and time. Patient following commands. HEENT: Normocephalic, atraumatic, moist mucous membranes. Respiratory/pulmonary: Clear lungs bilaterally, no associated crackles or wheezes. Cardiovascular: Normal heart sounds S1 and S2 with no associated murmurs. Abdomen: Tenderness in left flank, pelvic region on light palpation No palpable masses. Extremities: There is no peripheral edema present at the lower extremities. Peripheral Pulses: 3+ Radial (R). 3+ Radial (L). 3+ Dorsalis pedis (R). 3+ Dorsalis pedis(L) Skin: No rashes or pruritus, there is no sacral edema present at this time. Neurological: Intact cranial nerves with no focal neurologic deficits Labs/Xrays Labs Test 03/07/25 11:30 03/07/25 10:45 Range/Units Urine Color Red H Yellow Urine Clarity Cloudy H Clear Urine pH 7.0 5.0-9.0 Urine Specific [place] 1.020 1.001-1.035 Urine Protein 2+ H Negative Urine Ketones Negative Negative Urine Blood 3+ H Negative /uL Urine Nitrite Negative Negative Urine Bilirubin Negative Negative Urine Urobilinogen Normal Negative mg/dL Urine Leukocyte Esterase Trace Negative /uL Urine RBC 5633 0 - 4 /hpf Urine Microscopic WBC 0-5 /HPF Urine Squamous Epithelial Cells Few <5 /hpf Urine Bacteria None seen None Seen /hpf Urine Glucose Normal Normal mg/dL White Blood Count 6.1 4.4-10.8 10^3/uL Red Blood Count 4.85 4.0-5.20 10^6/uL Hemoglobin 13.1 12.2-16.2 g/dL Hematocrit 39.6 36.0-46.0 % Mean Corpuscular Volume 81.6 80.0-100.0 fL Mean Corpuscular Hemoglobin 27.1 L 28.0-32.0 pg Mean Corpuscular Hemoglobin Concent 33.2 32.0-36.0 g/dL Red Cell Distribution Width 15.9 H 11.8-14.3 % Platelet Count 293 140-450 10^3/uL Mean Platelet Volume 7.5 6.9-10.8 fL Neutrophils (%) (Auto) 56.7 37.0-80.0 % Lymphocytes (%) (Auto) 31.1 10.0-50.0 % Monocytes (%) (Auto) 7.6 0.0-12.0 % Eosinophils (%) (Auto) 4.0 0.0-7.0 % Basophils (%) (Auto) 0.6 0.0-2.0 % Neutrophils # (Auto) 3.5 1.6-8.6 10 ^3/uL Lymphocytes # (Auto) 1.9 0.4-5.4 10 ^3/uL Monocytes # (Auto) 0.5 0-1.3 10 ^3/uL Eosinophils # (Auto) 0.2 0-0.8 10 ^3/uL Basophils # (Auto) 0 0-0.2 10 ^3/uL Nucleated Red Blood Cells 0.0 % Sodium Level 140 136-145 mmol/L Potassium Level 4.0 3.5-5.1 mmol/L Chloride Level 109 H 98-107 mmol/L Carbon Dioxide Level 25 20-31 mmol/L Anion Gap 6 5-15 Blood Urea Nitrogen 10 9-23 mg/dL Creatinine 0.67 0.550-1.02 mg/dL Glomerular Filtration Rate Calc 109 >90 mL/min BUN/Creatinine Ratio 14.9 10.0-20.0 Serum Glucose 90 74-106 mg/dL Calcium Level 9.2 8.7-10.4 mg/dL SEPSIS Sepsis Screen Date sepsis recognized/suspect: Mar 07, 2025 Time Sepsis recognized/suspect: 850 Recent Procedure: No On Antibiotic Therapy: No Respiratory Rate >20: No Heart Rate >90: Yes Temp<36 C (96.8 F) or >38.3 C: No SBP <90 or MAP <65 mmHG: No New Acute Mental Status Change: No Is the patient on CPAP, BIPAP,: No Physician Orders Ct Ab Pel Wo Con-No Oral Or Iv (03/07/25 16:04) Admit (03/07/25 16:13) Code Status (03/07/25 16:13) 2 Gm Sodium Diet (03/07/25 Dinner) 0.9% Ns 1000 Ml (03/07/25 16:15) Hydrocodone-Acet 5/325mg Tab ([place] (03/07/25 16:15) Ondansetron Hcl (Zofran) (03/07/25 16:15) Complete Blood Count (03/08/25 04:00) Comprehensive Metabolic Panel (03/08/25 04:00) Acetaminophen Tablet (Tylenol Tablet) (03/07/25 16:15) Morphine Sulfate Injection (03/07/25 16:15) Nitroglycerin Sublingual (Ntrostat Subli (03/07/25 16:15) Morphine Sulfate Injection (03/07/25 16:15) Oxygen By Nasal Cannula (03/07/25 16:13) Stat Ekg For Chest Pain (03/07/25 16:13) Notify Of Changes From Base (03/07/25 16:13) Bunch Maker Hand For 24 Hours (03/07/25 16:13) Emergency Dysrhythmia Protocol (03/07/25 16:13) Rhythm Strips Once Every Shift (03/07/25 16:13) Kidney (03/07/25 16:13) Vital Signs Date Time Temp Pulse Resp B/P (MAP) Pulse Ox O2 Delivery O2 Flow Rate FiO2 03/07/25 10:34 99.0 109 18 135/75 (95) 100 99.0 03/07/25 10:34 109 18 100 Room Air 03/07/25 08:48 97.8 113 18 127/78 95 97.8 Laboratory Tests Test 03/07/25 10:45 White Blood Count 6.1 10^3/uL (4.4-10.8) Medications Medications Dose Ordered Sig/Emerson Route Start Time Stop Time Status Last Admin Dose Admin Ceftriaxone Sodium 50 ml @ 100 mls/hr ONCE ONCE IV 03/07/25 12:30 03/07/25 12:59 DC 03/07/25 13:49 100 MLS/HR Clindamycin Phosphate 50 ml @ 50 mls/hr ONCE ONCE IV 03/07/25 12:30 03/07/25 13:29 DC 03/07/25 13:50 50 MLS/HR Hydromorphone HCl 4 mg ONCE ONCE PO 03/07/25 14:00 03/07/25 14:01 DC 03/07/25 14:01 4 MG Ondansetron HCl 4 mg ONCE ONCE IV 03/07/25 14:00 03/07/25 14:01 DC 03/07/25 14:01 4 MG Sodium Chloride 1,000 ml @ 1,000 mls/hr Q1H ONCE IVB 03/07/25 10:30 03/07/25 11:29 DC 03/07/25 13:50 1,000 MLS/HR Assessment/Plan Assessment/Plan # intractable abdominal pain secondary to possible renal stone #Complicated Urinary tract infection #Hematuria, likely due to UTI #Lupus nephritis, possible #Nephrolithiasis, ruled out #Intractable pain abdomen, nausea, vomiting due to above #Leukocytosis -CT abdomen revealed no acute finding -Urine culture ordered. Continue ceftriaxone 1 g IV daily -Blood culture ordered -Bladder ultrasound revealed bladder distended with debris noted at the base of the bladder. -Continue IV fluids #History of [place]'s disease #History of lupus #History of MS #History of fibromyalgia -Continue home medications #Obesity Class I, with BMI 30.6 -Counseled on Lifestyle changes Goal of care discussed with patient for 36 minutes: Full code Case discussed with Dr. Rachel Plan discussed with: Patient My Orders Orders - CECILY LEAL RESIDENT Procedure Category Date Status Time Ct Ab Pel Wo Con-No CT 03/07/25 Logged Oral Or Iv 16:04 Admit ADMIT 03/07/25 Verified 16:13 Code Status CODE 03/07/25 Verified 16:13 2 Gm Sodium Diet DIET 03/07/25 Verified Dinner 0.9% Ns 1000 Ml PHA 03/07/25 Verified 16:15 Hydrocodone-Acet PHA 03/07/25 Verified 5/325mg Tab ([place] 16:15 Ondansetron Hcl PHA 03/07/25 Verified (Zofran) 16:15 Complete Blood Count LAB 03/08/25 Verified 04:00 Comprehensive LAB 03/08/25 Verified Metabolic Panel 04:00 Acetaminophen Tablet PHA 03/07/25 Verified (Tylenol Tablet) 16:15 Morphine Sulfate PHA 03/07/25 Verified Injection 16:15 Nitroglycerin PHA 03/07/25 Verified Sublingual (Ntrostat 16:15 Morphine Sulfate PHA 03/07/25 Verified Injection 16:15 Oxygen By Nasal RT 03/07/25 Verified Cannula 16:13 Stat Ekg For Chest [facility] 03/07/25 Verified Pain 16:13 Notify Md Of Changes [facility] 03/07/25 Verified From Base 16:13 Bunch Maker Hand For [facility] 03/07/25 Verified 24 Hours 16:13 Emergency Dysrhythmia [facility] 03/07/25 Verified Protocol 16:13 Rhythm Strips Once [facility] 03/07/25 Verified Every Shift 16:13 Kidney US 03/07/25 Verified 16:13 Date of Service: Mar 07, 2025 Billing Provider: FLORIDALMA RACHEL MD Common Visit Codes: [id number] INP/OBS CARE (HIGH) Secondary Visit Codes: [id number] CARE PLAN 30 MINUTES CECILY LEAL RESIDENT Mar 07, 2025 16:22
[2025-03-07 16:51] LABS: Opiate Scree,Urine Pos (NEGATIVE)
[2025-03-07 16:53] LABS: Amphetamine Screen, Urine Neg (NEGATIVE); Barbiturate Scree,Urine Neg (NEGATIVE); Benzodiazephine Screen, Urine Neg (NEGATIVE); Cannabinoid Screen, Urine Neg (NEGATIVE); Cocaine Screen, Urine Neg (NEGATIVE); Phencyclidine Screen, Urine Neg (NEGATIVE)
--- NOTE | 2025-03-07 17:03 | DVH ---
CLINICAL HISTORY: Rule out renal stone TECHNIQUE: CT of the abdomen and pelvis was performed without IV contrast. This exam was performed ac cording to our departmental dose optimization program. Up-to-date CT equipment and radiation dose red uction techniques are utilized as appropriate. CTDI 19.5 DLP 1079 COMPARISON: CT CT AB PEL WO CON-NO ORAL OR IV on DOS: 12/25/24, CT CT AB PEL WITH IV CON ONLY on DOS: 12/02/24, CT CT AB PEL WO CON-NO ORAL OR IV on DOS: 11/30/24 FINDINGS: Abdomen/Pelvis: The spleen, pancreas, adrenal glands, pancreas, kidneys, bladder, and uterus are unremarkable. Gallbl adder is absent. The abdominal aorta is normal in course and caliber. There are no significant atherosclerotic calcifi cations. There is no free intraperitoneal air or fluid. There is no enlarged abdominal pelvic lymph node. There is no small or large bowel wall thickening or dilatation. The appendix is normal. There is a mo [id number] amount of stool in the colon. There is diffuse gastric wall thickening. Other: The imaged lower thorax is unremarkable. No acute osseous abnormality is evident. Impression: Acute gastritis. Cholecystectomy. Constipation.
--- NOTE | 2025-03-07 17:28 | DVH ---
INDICATION: Rule out hydronephrosis TECHNIQUE: Multiple real-time sonographic images of the kidneys and bladder were obtained. COMPARISON: None FINDINGS: The right kidney measures 11.2 cm in length, which is normal in size. There is normal echogenicity o f the right kidney. No hydronephrosis. The left kidney measures 10.6 cm in length, which is normal in size. There is normal echogenicity of the left kidney. No hydronephrosis. Wall thickening of the urinary bladder with urinary bladder volume of 121 cc. IMPRESSION: Bilateral kidneys are unremarkable. Urinary bladder wall thickening which is most likely from inadequate distention. Correlation with ur inalysis is recommended to exclude cystitis. Urinary bladder volume of 121 cc.
[2025-03-07 19:53] VITALS: BP 141/71; PULSE 83; RESP 17; TEMP 97.6; O2SAT 98
[2025-03-07 19:58] VITALS: O2SAT 98
[2025-03-07 20:00] VITALS: O2SAT 98
[2025-03-07 21:00] VITALS: BP 141/71; PULSE 83; RESP 17; TEMP 97.6; O2SAT 98
[2025-03-08] VITALS (9 sets, daily range): BP systolic 102–140; BP diastolic 40–81; PULSE 80–95; RESP 16–18; TEMP 97–99.1; O2SAT 95–100
[2025-03-08] MEDS: ONDANSETRON HCL 4 MG/2 ML VIAL IV PRN (01:25)
[2025-03-08] MEDS: LIDOCAINE 5% TOPICAL PATCH TOP ONE (07:09)
[2025-03-08] MEDS: LIDOCAINE 5% TOPICAL PATCH TOP SCH (09:01)
[2025-03-08 10:09] LABS: Hemoglobin 13.2 g/dL (12.2-16.2); Nucleated Red Blood Cells % 0.0 %
[2025-03-08 10:11] LABS: Hematocrit 40.0 % (36.0-46.0); Mean Corpuscular Hemoglobin 26.8 pg (28.0-32.0); Mean Corpuscular Volume 81.4 fL (80.0-100.0)
[2025-03-08 10:27] LABS: Albumin 3.8 g/dL (3.2-4.8); Alkaline Phosphatase 57 U/L (46-116); Anion Gap 7 (5-15); BUN/Creatinine Ratio 9.4 (10.0-20.0); Bilirubin, Total 0.7 mg/dL (0.2-1.0); Carbon Dioxide 23 mmol/L (20-31); Glucose 105 mg/dL (74-106); Potassium 3.7 mmol/L (3.5-5.1); Sodium 142 mmol/L (136-145); Total Protein 6.9 g/dL (5.7-8.2)
[2025-03-08 10:28] LABS: Alanine Aminotransferase < 9 U/L (7-40); Blood Urea Nitrogen 5 mg/dL (9-23); Calcium 8.6 mg/dL (8.7-10.4); Chloride 112 mmol/L (98-107)
--- NOTE | 2025-03-08 13:34 | DVHPN2 ---
Progress Note Date Seen: Mar 08, 2025 Medical Necessity Reason Pt with a Central, PICC or Fol: No Subjective Patient reports: Other (Complain of diffuse pain and requests the patient gets Dilaudid 4 mg q.3 hours. Discussed with the patient is awake she is constipated and recommended high-dose opiates at Potentially worsening constipation. Chronic opiate dependent) Objective vital signs Vital Sign Date Time Temp Pulse Resp B/P (MAP) Pulse Ox O2 Delivery O2 Flow Rate FiO2 03/08/25 12:40 98.5 95 18 116/40 (65) 95 98.5 03/08/25 08:00 Room Air* 0 21 Total Intake and Output 03/07/25 03/07/25 03/08/25 15:00 23:00 07:00 Intake Total 1050 ml 1400 ml Output Total 4 ml Balance 1050 ml 1396 ml medications Current Medications Medications Dose Ordered Sig/Emerson Route Start Time Stop Time Status Last Admin Dose Admin Sodium Chloride 1,000 ml @ 120 mls/hr Q8H20M IV 03/07/25 16:15 03/08/25 09:01 120 MLS/HR Ondansetron HCl 4 mg Q4HP PRN IV 03/07/25 16:15 03/08/25 09:01 4 MG Acetaminophen 650 mg Q6HP PRN PO 03/07/25 16:15 Hold Morphine Sulfate 2 mg Q4HPRN PRN IV 03/07/25 16:15 Hold Nitroglycerin 0.4 mg Q5MINP PRN SL 03/07/25 16:15 Morphine Sulfate 2 mg Q30M PRN IV 03/07/25 16:15 Hold Ceftriaxone Sodium 50 ml @ 100 mls/hr DAILY IV 03/08/25 10:00 Lidocaine 1 patch DAILY TOP 03/08/25 10:00 Hydromorphone HCl 4 mg Q6HP PRN PO 03/08/25 05:00 03/08/25 11:15 4 MG Examination Generally-45 years old woman, well nourished well developed. Mild distress HEENT-atraumatic normocephalic Heart-regular rate and rhythm lungs clear to auscultate Abdomen-soft nontender nondistended musculoskeletal-no edema cyanosis Skin-mild right lower extremity erythema. Tender to palpate Neuro-AO x3, no focal deficits laboratory and microbiology Laboratory Tests 03/08/25 10:01 Test 03/08/25 10:01 Range/Units Serum Glucose 105 74-106 mg/dL Problem List/Assessment/Plan Problem List/Assessment/Plan # intractable abdominal pain secondary to possible renal stone #Complicated Urinary tract infection #Hematuria, likely due to UTI #Lupus nephritis, possible #Nephrolithiasis, ruled out #Intractable pain abdomen, nausea, vomiting due to above #Leukocytosis Right leg cellulitis -CT abdomen revealed no acute finding -Urine culture ordered. Patient states she is allergic to ceftriaxone and refused to take. Order Zosyn. -Blood culture ordered. Follow up with the culture -Bladder ultrasound revealed bladder distended with debris noted at the base of the bladder. -Continue IV fluids Dilaudid 4 mg q.6 hours Bowel regimen aggressive Check ESR and CRP DC antibiotics if negative #History of Killian's disease #History of lupus #History of MS #History of fibromyalgia -Continue home medications #Obesity Class I, with BMI 30.6 -Counseled on Lifestyle changes Plan discussed with: Patient My Orders My Orders Orders - KARL MCCABE MD Procedure Category Date Status Time Zosyn Extended PHA 03/08/25 Transmitted Infusion 14:00 C-Reactive Protein LAB 03/09/25 Verified 04:00 Erythrocyte LAB 03/09/25 Verified Sedimentation Rate 04:00 Date of Service: Mar 08, 2025 Billing Provider: KARL MCCABE MD Common Visit Codes: [id number] SAME DATE (MOD) KARL MCCABE MD Mar 08, 2025 13:34
[2025-03-08] MEDS: PIPERACILLIN-TAZOB 3.375GM 100 ML IV SCH (14:14)
[2025-03-09 05:00] VITALS: BP 125/86; PULSE 87; RESP 18; TEMP 98.3; O2SAT 94
[2025-03-09 05:50] LABS: Hematocrit 38.2 % (36.0-46.0); Hemoglobin 12.3 g/dL (12.2-16.2); Mean Corpuscular Hemoglobin 26.4 pg (28.0-32.0); Mean Corpuscular Volume 81.6 fL (80.0-100.0); Nucleated Red Blood Cells % 0.1 %
[2025-03-09 06:12] LABS: Albumin 3.7 g/dL (3.2-4.8); Alkaline Phosphatase 56 U/L (46-116); Anion Gap 7 (5-15); BUN/Creatinine Ratio 8.7 (10.0-20.0); Bilirubin, Total 0.6 mg/dL (0.2-1.0); Carbon Dioxide 25 mmol/L (20-31); Glucose 86 mg/dL (74-106); Potassium 3.6 mmol/L (3.5-5.1); Sodium 144 mmol/L (136-145); Total Protein 6.9 g/dL (5.7-8.2)
[2025-03-09 06:20] LABS: Alanine Aminotransferase < 9 U/L (7-40); Blood Urea Nitrogen 6 mg/dL (9-23); Calcium 8.5 mg/dL (8.7-10.4); Chloride 112 mmol/L (98-107)
[2025-03-09 09:00] VITALS: BP 120/69; PULSE 81; RESP 18; TEMP 98.1; O2SAT 98
[2025-03-09] MEDS: PANTOPRAZOLE 40 MG/10 ML VIAL INJ IV SCH (09:32)
[2025-03-09] MEDS ORDERED: HYDR2TAB58 PO (09:40)
[2025-03-09] MEDS ORDERED: PANT40TA2 PO (09:46)
[2025-03-09] MEDS ORDERED: FLU01T PO (09:46)
[2025-03-09] MEDS ORDERED: LEVO25TA2 PO (09:46)
--- NOTE | 2025-03-09 10:58 | DVHPN2 ---
Reviewed: Care Plan, H&P, Labs, Medications, Previous Orders, Radiology Changes from previous H/P or p: No Changes Objective Vitals Vital Signs Date Time Temp Pulse Resp B/P (MAP) Pulse Ox O2 Delivery O2 Flow Rate FiO2 03/09/25 09:00 98.1 81 18 120/69 (86) 98 98.1 03/08/25 20:00 Room Air* 0 21 Intake/Output Intake and Output 03/09/25 07:00 Intake Total 3400 ml Balance 3400 ml Intake Oral 1200 ml IV Total 2200 ml # Voids 3 # Bowel Movements 1 Medications Current Medications Medications Dose Ordered Sig/Emerson Route Start Time Stop Time Status Last Admin Dose Admin Sodium Chloride 1,000 ml @ 120 mls/hr Q8H20M IV 03/07/25 16:15 03/09/25 09:32 120 MLS/HR Ondansetron HCl 4 mg Q4HP PRN IV 03/07/25 16:15 03/09/25 09:35 4 MG Acetaminophen 650 mg Q6HP PRN PO 03/07/25 16:15 Hold Morphine Sulfate 2 mg Q4HPRN PRN IV 03/07/25 16:15 Hold Nitroglycerin 0.4 mg Q5MINP PRN SL 03/07/25 16:15 Morphine Sulfate 2 mg Q30M PRN IV 03/07/25 16:15 Hold Lidocaine 1 patch DAILY TOP 03/08/25 10:00 Hydromorphone HCl 4 mg Q6HP PRN PO 03/08/25 05:00 03/09/25 05:10 4 MG Piperacillin Sod/ Tazobactam Sod 100 ml @ 25 mls/hr Q8HR IV 03/08/25 14:00 03/09/25 05:32 25 MLS/HR Pantoprazole Sodium 40 mg DAILY IV 03/09/25 10:00 03/09/25 09:32 40 MG Laboratory Results Laboratory Tests 03/09/25 04:47 Chemistry Test 03/09/25 04:47 Albumin 3.7 g/dL (3.2-4.8) Calcium Level 8.5 mg/dL (8.7-10.4) L Total Protein 6.9 g/dL (5.7-8.2) LFT Test 03/09/25 04:47 Alanine Aminotransferase (ALT) < 9 U/L (7-40) Alkaline Phosphatase 56 U/L (46-116) Aspartate Amino Transferase (AST) 17 U/L (13-40) Total Bilirubin 0.6 mg/dL (0.2-1.0) Urinalysis Test 03/07/25 11:30 Urine Color Red (Yellow) H Urine Clarity Cloudy (Clear) H Urine pH 7.0 (5.0-9.0) Urine Specific [place] 1.020 (1.001-1.035) Urine Protein 2+ (Negative) H Urine Ketones Negative (Negative) Urine Blood 3+ /uL (Negative) H Urine Nitrite Negative (Negative) Urine Bilirubin Negative (Negative) Urine Urobilinogen Normal mg/dL (Negative) Urine Leukocyte Esterase Trace /uL (Negative) Urine RBC 5633 /hpf (0 - 4) Urine Microscopic WBC /HPF (0-5) Urine Squamous Epithelial Cells Few /hpf (<5) Urine Bacteria None seen /hpf (None Seen) Urine Glucose Normal mg/dL (Normal) Microbiology Microbiology Date/Time Source Procedure Growth Status 03/07/25 11:30 Voided Urine Urine Culture - Preliminary Resulted Labs and/or images reviewed: Labs reviewed by me, Image(s) reviewed by me Assessment/Plan Assessment/Plan # intractable abdominal pain secondary to possible renal stone #Complicated Urinary tract infection urine cultures growing Gram-negative rods #Hematuria, likely due to UTI #Lupus nephritis, possible #Nephrolithiasis, ruled out #Intractable pain abdomen, nausea, vomiting due to above #Leukocytosis # Right leg cellulitis #History of Mcdonald's disease #History of lupus #History of MS #History of fibromyalgia # moderate obesity BMI of 32; counseling # chronic pain syndrome under the management of pain , patient takes Dilaudid at home JIMMY Luna at bedside Time spent 50 minutes Advanced care planning time 20 mts Plan discussed with: Patient Date of Service: Mar 09, 2025 Billing Provider: DELBERT CHIRINOS MD Common Visit Codes: [id number] INP/OBS CARE(HIGH) Secondary Visit Codes: [id number] CARE PLAN 30 MINUTES DELBERT CHIRINOS MD Mar 09, 2025 10:58
[2025-03-09 12:32] VITALS: BP 140/98; PULSE 81; RESP 18; TEMP 98.1; O2SAT 99
[2025-03-09 17:00] VITALS: BP 116/79; PULSE 79; RESP 20; TEMP 97.6; O2SAT 98
[2025-03-09 20:00] VITALS: PULSE 79; RESP 17; O2SAT 95
[2025-03-09 21:00] VITALS: BP 125/77; PULSE 79; RESP 19; TEMP 98; O2SAT 95
[2025-03-10] VITALS (7 sets, daily range): BP systolic 119–133; BP diastolic 72–85; PULSE 73–83; RESP 17–18; TEMP 97.6–98.3; O2SAT 94–99
[2025-03-10 07:10] LABS: Mean Corpuscular Hemoglobin 26.8 pg (28.0-32.0)
[2025-03-10 07:12] LABS: Hematocrit 35.0 % (36.0-46.0); Hemoglobin 11.7 g/dL (12.2-16.2); Mean Corpuscular Volume 80.0 fL (80.0-100.0); Nucleated Red Blood Cells % 0.1 %
[2025-03-10 07:17] LABS: Alkaline Phosphatase 49 U/L (46-116); Anion Gap 6 (5-15); BUN/Creatinine Ratio 12.9 (10.0-20.0); Carbon Dioxide 26 mmol/L (20-31); Glucose 81 mg/dL (74-106); Potassium 3.6 mmol/L (3.5-5.1); Sodium 142 mmol/L (136-145); Total Protein 6.6 g/dL (5.7-8.2)
[2025-03-10 07:19] LABS: Albumin 3.7 g/dL (3.2-4.8); Bilirubin, Total 0.5 mg/dL (0.2-1.0)
[2025-03-10 07:21] LABS: Alanine Aminotransferase 9 U/L (7-40); Blood Urea Nitrogen 8 mg/dL (9-23); Calcium 8.4 mg/dL (8.7-10.4); Chloride 110 mmol/L (98-107)
--- NOTE | 2025-03-10 09:39 | DVHPN2 ---
Reviewed: Care Plan, H&P, Labs, Medications, Previous Orders, Radiology Changes from previous H/P or p: No Changes Objective Vitals Vital Signs Date Time Temp Pulse Resp B/P (MAP) Pulse Ox O2 Delivery O2 Flow Rate FiO2 03/10/25 09:00 98.2 73 17 125/85 (98) 99 98.2 03/10/25 07:32 Room Air* 0 21 Intake/Output Intake and Output 03/10/25 07:00 Intake Total 2140 ml Balance 2140 ml Intake Oral 840 ml IV Total 1300 ml # Voids 3 # Bowel Movements 2 Medications Current Medications Medications Dose Ordered Sig/Emerson Route Start Time Stop Time Status Last Admin Dose Admin Sodium Chloride 1,000 ml @ 120 mls/hr Q8H20M IV 03/07/25 16:15 03/10/25 02:35 120 MLS/HR Ondansetron HCl 4 mg Q4HP PRN IV 03/07/25 16:15 03/10/25 09:26 4 MG Acetaminophen 650 mg Q6HP PRN PO 03/07/25 16:15 Hold Morphine Sulfate 2 mg Q4HPRN PRN IV 03/07/25 16:15 Hold Nitroglycerin 0.4 mg Q5MINP PRN SL 03/07/25 16:15 Morphine Sulfate 2 mg Q30M PRN IV 03/07/25 16:15 Hold Lidocaine 1 patch DAILY TOP 03/08/25 10:00 Piperacillin Sod/ Tazobactam Sod 100 ml @ 25 mls/hr Q8HR IV 03/08/25 14:00 03/10/25 05:30 25 MLS/HR Pantoprazole Sodium 40 mg DAILY IV 03/09/25 10:00 03/10/25 09:26 40 MG Hydromorphone HCl 4 mg Q4HP PRN PO 03/09/25 11:00 03/10/25 07:42 4 MG Laboratory Results Laboratory Tests 03/10/25 04:42 Chemistry Test 03/10/25 04:42 Albumin 3.7 g/dL (3.2-4.8) Calcium Level 8.4 mg/dL (8.7-10.4) L Total Protein 6.6 g/dL (5.7-8.2) LFT Test 03/10/25 04:42 Alanine Aminotransferase (ALT) 9 U/L (7-40) Alkaline Phosphatase 49 U/L (46-116) Aspartate Amino Transferase (AST) 16 U/L (13-40) Total Bilirubin 0.5 mg/dL (0.2-1.0) Urinalysis Test 03/07/25 11:30 Urine Color Red (Yellow) H Urine Clarity Cloudy (Clear) H Urine pH 7.0 (5.0-9.0) Urine Specific [place] 1.020 (1.001-1.035) Urine Protein 2+ (Negative) H Urine Ketones Negative (Negative) Urine Blood 3+ /uL (Negative) H Urine Nitrite Negative (Negative) Urine Bilirubin Negative (Negative) Urine Urobilinogen Normal mg/dL (Negative) Urine Leukocyte Esterase Trace /uL (Negative) Urine RBC 5633 /hpf (0 - 4) Urine Microscopic WBC /HPF (0-5) Urine Squamous Epithelial Cells Few /hpf (<5) Urine Bacteria None seen /hpf (None Seen) Urine Glucose Normal mg/dL (Normal) Microbiology Microbiology Date/Time Source Procedure Growth Status 03/07/25 11:30 Voided Urine Urine Culture - Preliminary Resulted Labs and/or images reviewed: Labs reviewed by me, Image(s) reviewed by me Assessment/Plan Assessment/Plan # intractable abdominal pain secondary to possible renal stone #Complicated Urinary tract infection urine cultures growing Gram-negative rods #Hematuria, likely due to UTI #Lupus nephritis, possible #Nephrolithiasis, ruled out #Intractable pain abdomen, nausea, vomiting due to above #Leukocytosis # Right leg cellulitis #History of Killian's disease #History of lupus #History of MS #History of fibromyalgia # moderate obesity BMI of 32; counseling # chronic pain syndrome under the management of pain , patient takes Dilaudid at home JIMMY Luna at bedside Time spent 50 minutes Advanced care planning time 20 mts Plan discussed with: Patient My Orders Orders - DELBERT CHIRINOS MD Procedure Category Date Status Time Hydromorphone Tablet PHA 03/09/25 In Process (Dilaudid Tablet) 11:00 Date of Service: Mar 10, 2025 Billing Provider: DELBERT CHIRINOS MD Common Visit Codes: [id number] INP/OBS CARE(HIGH) DELBERT CHIRINOS MD Mar 10, 2025 09:39
[2025-03-10] MEDS: PIPERACILLIN-TAZOB 3.375GM 100 ML IV SCH (16:55)
[2025-03-11] VITALS (7 sets, daily range): BP systolic 106–144; BP diastolic 51–87; PULSE 65–81; RESP 16–18; TEMP 96.5–97.9; O2SAT 95–100
[2025-03-11 07:25] LABS: Hematocrit 38.0 % (36.0-46.0); Hemoglobin 12.5 g/dL (12.2-16.2); Mean Corpuscular Hemoglobin 26.4 pg (28.0-32.0); Mean Corpuscular Volume 80.1 fL (80.0-100.0); Nucleated Red Blood Cells % 0.1 %
[2025-03-11 07:51] LABS: Alanine Aminotransferase 10 U/L (7-40); Albumin 4.0 g/dL (3.2-4.8); Alkaline Phosphatase 52 U/L (46-116); Anion Gap 7 (5-15); BUN/Creatinine Ratio 9.7 (10.0-20.0); Calcium 8.9 mg/dL (8.7-10.4); Carbon Dioxide 29 mmol/L (20-31); Glucose 90 mg/dL (74-106); Potassium 3.6 mmol/L (3.5-5.1); Sodium 144 mmol/L (136-145); Total Protein 7.1 g/dL (5.7-8.2)
[2025-03-11 07:52] LABS: Bilirubin, Total 0.5 mg/dL (0.2-1.0)
[2025-03-11 07:59] LABS: Blood Urea Nitrogen 7 mg/dL (9-23); Chloride 108 mmol/L (98-107)
--- NOTE | 2025-03-11 10:00 | DVHPN2 ---
Reviewed: Care Plan, H&P, Labs, Medications, Previous Orders, Radiology Changes from previous H/P or p: No Changes Objective Vitals Vital Signs Date Time Temp Pulse Resp B/P (MAP) Pulse Ox O2 Delivery O2 Flow Rate FiO2 03/11/25 08:56 96.6 81 16 134/76 (95) 95 96.6 03/11/25 08:00 Room Air* 0 21 Intake/Output Intake and Output 03/11/25 07:00 Intake Total 2220 ml Balance 2220 ml Intake Oral 920 ml IV Total 1300 ml # Voids 4 # Bowel Movements 2 Medications Current Medications Medications Dose Ordered Sig/Emerson Route Start Time Stop Time Status Last Admin Dose Admin Sodium Chloride 1,000 ml @ 120 mls/hr Q8H20M IV 03/07/25 16:15 03/11/25 03:35 120 MLS/HR Ondansetron HCl 4 mg Q4HP PRN IV 03/07/25 16:15 03/11/25 08:34 4 MG Acetaminophen 650 mg Q6HP PRN PO 03/07/25 16:15 Hold Morphine Sulfate 2 mg Q4HPRN PRN IV 03/07/25 16:15 Hold Nitroglycerin 0.4 mg Q5MINP PRN SL 03/07/25 16:15 Morphine Sulfate 2 mg Q30M PRN IV 03/07/25 16:15 Hold Lidocaine 1 patch DAILY TOP 03/08/25 10:00 Pantoprazole Sodium 40 mg DAILY IV 03/09/25 10:00 03/11/25 08:33 40 MG Hydromorphone HCl 4 mg Q4HP PRN PO 03/09/25 11:00 03/11/25 08:34 4 MG Piperacillin Sod/ Tazobactam Sod 100 ml @ 25 mls/hr Q8H IV 03/10/25 16:45 03/11/25 08:33 25 MLS/HR Laboratory Results Laboratory Tests 03/11/25 07:00 Chemistry Test 03/11/25 07:00 Albumin 4.0 g/dL (3.2-4.8) Calcium Level 8.9 mg/dL (8.7-10.4) Total Protein 7.1 g/dL (5.7-8.2) LFT Test 03/11/25 07:00 Alanine Aminotransferase (ALT) 10 U/L (7-40) Alkaline Phosphatase 52 U/L (46-116) Aspartate Amino Transferase (AST) 13 U/L (13-40) Total Bilirubin 0.5 mg/dL (0.2-1.0) Urinalysis Test 03/07/25 11:30 Urine Color Red (Yellow) H Urine Clarity Cloudy (Clear) H Urine pH 7.0 (5.0-9.0) Urine Specific [place] 1.020 (1.001-1.035) Urine Protein 2+ (Negative) H Urine Ketones Negative (Negative) Urine Blood 3+ /uL (Negative) H Urine Nitrite Negative (Negative) Urine Bilirubin Negative (Negative) Urine Urobilinogen Normal mg/dL (Negative) Urine Leukocyte Esterase Trace /uL (Negative) Urine RBC 5633 /hpf (0 - 4) Urine Microscopic WBC /HPF (0-5) Urine Squamous Epithelial Cells Few /hpf (<5) Urine Bacteria None seen /hpf (None Seen) Urine Glucose Normal mg/dL (Normal) Microbiology Microbiology Date/Time Source Procedure Growth Status 03/07/25 11:30 Voided Urine Urine Culture - Final Complete Labs and/or images reviewed: Labs reviewed by me, Image(s) reviewed by me Assessment/Plan Assessment/Plan # intractable abdominal pain secondary to possible renal stone #Complicated Urinary tract infection urine cultures mixed,, continue Zosyn, add Keflex 500 mg p.o. q.6 hours as the patient wants to try oral antibiotic before going home #Hematuria, likely due to UTI #Lupus nephritis, possible #Nephrolithiasis, ruled out # Right leg cellulitis #History of Killian's disease #History of lupus #History of MS #History of fibromyalgia # moderate obesity BMI of 32; counseling # chronic pain syndrome under the management of pain management doctor., patient takes Dilaudid at home # Multiple allergies RN Teagan at bedside Time spent 50 minutes Advanced care planning time 20 mts Patient does not want to go home and wants to try p.o. antibiotic before going home. Plan discussed with: Patient Date of Service: Mar 11, 2025 Billing Provider: DELBERT CHIRINOS MD Common Visit Codes: [id number] INP/OBS CARE(HIGH) DELBERT CHIRINOS MD Mar 11, 2025 10:00
--- NOTE | 2025-03-11 11:41 | MEDREC ---
[facility] Intervention Section I [facility] Intervention: Duplication of therapy (Concomitant use of Zosyn and cephalexin is duplication of therapy. Please consider discontinuing 1 agent if/when clinically appropriate.) MARVIN BARBER [facility] Mar 11, 2025 11:41
[2025-03-11] MEDS: CEPHALEXIN 250 MG CAP PO SCH (12:33)
[2025-03-12 01:00] VITALS: BP 118/76; PULSE 74; RESP 18; TEMP 98.4; O2SAT 99
[2025-03-12 05:00] VITALS: BP 136/88; PULSE 74; RESP 17; TEMP 97.9; O2SAT 98
[2025-03-12 06:00] LABS: Hematocrit 39.9 % (36.0-46.0); Hemoglobin 13.3 g/dL (12.2-16.2); Mean Corpuscular Hemoglobin 27.1 pg (28.0-32.0); Mean Corpuscular Volume 81.5 fL (80.0-100.0); Nucleated Red Blood Cells % 0.1 %
[2025-03-12 06:28] LABS: Albumin 3.9 g/dL (3.2-4.8); Alkaline Phosphatase 49 U/L (46-116); Anion Gap 9 (5-15); BUN/Creatinine Ratio 12.1 (10.0-20.0); Bilirubin, Total 0.5 mg/dL (0.2-1.0); Calcium 9.1 mg/dL (8.7-10.4); Carbon Dioxide 27 mmol/L (20-31); Chloride 106 mmol/L (98-107); Glucose 87 mg/dL (74-106); Potassium 3.9 mmol/L (3.5-5.1); Sodium 142 mmol/L (136-145); Total Protein 7.1 g/dL (5.7-8.2)
[2025-03-12 06:29] LABS: Alanine Aminotransferase < 9 U/L (7-40); Blood Urea Nitrogen 8 mg/dL (9-23)
[2025-03-12 08:50] VITALS: BP 130/75; PULSE 65; RESP 18; TEMP 98.4; O2SAT 100
--- NOTE | 2025-03-12 09:24 | DVHPN2 ---
Reviewed: Care Plan, H&P, Labs, Medications, Previous Orders, Radiology Changes from previous H/P or p: No Changes Objective Vitals Vital Signs Date Time Temp Pulse Resp B/P (MAP) Pulse Ox O2 Delivery O2 Flow Rate FiO2 03/12/25 08:50 98.4 65 18 130/75 (93) 100 98.4 03/11/25 20:00 Room Air* 0 21 Intake/Output Intake and Output 03/12/25 07:00 Intake Total 920 ml Balance 920 ml Intake Oral 820 ml IV Total 100 ml # Voids 4 # Bowel Movements 1 Medications Current Medications Medications Dose Ordered Sig/Emerson Route Start Time Stop Time Status Last Admin Dose Admin Sodium Chloride 1,000 ml @ 120 mls/hr Q8H20M IV 03/07/25 16:15 03/11/25 03:35 120 MLS/HR Ondansetron HCl 4 mg Q4HP PRN IV 03/07/25 16:15 03/12/25 05:06 4 MG Acetaminophen 650 mg Q6HP PRN PO 03/07/25 16:15 Hold Morphine Sulfate 2 mg Q4HPRN PRN IV 03/07/25 16:15 Hold Nitroglycerin 0.4 mg Q5MINP PRN SL 03/07/25 16:15 Morphine Sulfate 2 mg Q30M PRN IV 03/07/25 16:15 Hold Lidocaine 1 patch DAILY TOP 03/08/25 10:00 Pantoprazole Sodium 40 mg DAILY IV 03/09/25 10:00 03/11/25 08:33 40 MG Hydromorphone HCl 4 mg Q4HP PRN PO 03/09/25 11:00 03/12/25 05:06 4 MG Piperacillin Sod/ Tazobactam Sod 100 ml @ 25 mls/hr Q8H IV 03/10/25 16:45 Hold 03/11/25 08:33 25 MLS/HR Cephalexin 500 mg Q6HR PO 03/11/25 12:00 03/11/25 23:36 500 MG Laboratory Results Laboratory Tests 03/12/25 04:50 Chemistry Test 03/12/25 04:50 Albumin 3.9 g/dL (3.2-4.8) Calcium Level 9.1 mg/dL (8.7-10.4) Total Protein 7.1 g/dL (5.7-8.2) LFT Test 03/12/25 04:50 Alanine Aminotransferase (ALT) < 9 U/L (7-40) Alkaline Phosphatase 49 U/L (46-116) Aspartate Amino Transferase (AST) 13 U/L (13-40) Total Bilirubin 0.5 mg/dL (0.2-1.0) Urinalysis Test 03/07/25 11:30 Urine Color Red (Yellow) H Urine Clarity Cloudy (Clear) H Urine pH 7.0 (5.0-9.0) Urine Specific [place] 1.020 (1.001-1.035) Urine Protein 2+ (Negative) H Urine Ketones Negative (Negative) Urine Blood 3+ /uL (Negative) H Urine Nitrite Negative (Negative) Urine Bilirubin Negative (Negative) Urine Urobilinogen Normal mg/dL (Negative) Urine Leukocyte Esterase Trace /uL (Negative) Urine RBC 5633 /hpf (0 - 4) Urine Microscopic WBC /HPF (0-5) Urine Squamous Epithelial Cells Few /hpf (<5) Urine Bacteria None seen /hpf (None Seen) Urine Glucose Normal mg/dL (Normal) Microbiology Microbiology Date/Time Source Procedure Growth Status 03/07/25 11:30 Voided Urine Urine Culture - Final Complete Labs and/or images reviewed: Labs reviewed by me, Image(s) reviewed by me Assessment/Plan Assessment/Plan # intractable abdominal pain secondary to possible renal stone #Complicated Urinary tract infection urine cultures mixed,, continue Zosyn, add Keflex 500 mg p.o. q.6 hours as the patient wants to try oral antibiotic before going home #Hematuria, likely due to UTI #Lupus nephritis, possible #Nephrolithiasis, ruled out # Right leg cellulitis #History of Beaver's disease #History of lupus #History of MS #History of fibromyalgia # moderate obesity BMI of 32; counseling # chronic pain syndrome under the management of pain management doctor., patient takes Dilaudid at home # Multiple allergies # intractable nausea and vomiting: Consult for GI Dr. Loki Rice at bedside Plan discussed with: Patient My Orders Orders - DELBERT CHIRINOS MD Procedure Category Date Status Time Cephalexin Capsule PHA 03/11/25 In Process (Keflex Capsule) 12:00 Date of Service: Mar 12, 2025 Billing Provider: DELBERT CHIRINOS MD Common Visit Codes: [id number] INP/OBS CARE(HIGH) DELBERT CHIRINOS MD Mar 12, 2025 09:24
[2025-03-12] MEDS: SUCRALFATE 1 GM/10 ML ORAL SUSP PO ONE (11:15)
[2025-03-12] MEDS: POLYETHYLENE GLYCOL 17 GM PWDR PO ONE (11:30)
--- NOTE | 2025-03-12 11:32 | DVHCONRES ---
Date Seen: Mar 12, 2025 Resident Creating Document: JHAJJ,SARPUNEET RESIDENT Referring Physician Dr Hernández Reason for Consultation Intractable nausea vomiting History of Present Illness Patient 45-year-old female with past medical history of [place]'s disease, lupus, MS, fibromyalgia, presented to the ER with chief complaints of abdominal pain radiating to flank area. Hematuria with blood clots started 2 days before the admission. Next day, her symptoms worsened, she started complaining of associated pain, nausea, vomiting, chills which urged her visit to the hospital. The pain is sharp, burning, intermittent, radiates from her flank to the pelvic region. Patient in the hospital was being treated for complicated UTI with the antibiotics and GI were called because of intractable nausea vomiting with the patient was reporting. Past Medical History As per HPI Past Surgical History Cholecystectomy Family History: Diabetes mellitus G8 MOTHER G8 FATHER Family history: Autoimmune disease (situation) G8 MOTHER Family history: Blood disorder G8 MOTHER G8 FATHER Family history: Cardiovascular disease G8 MOTHER G8 FATHER Family history: Depression (situation) G8 MOTHER Family history: Osteoporosis G8 MOTHER Family history: Thyroid disorder G8 MOTHER G8 FATHER Family History Noncontributory Social History Denies smoking, alcohol, drug use Allergies: Coded Allergies: Acetaminophen (Verified Allergy, Severe, hives, 12/01/24) Ketorolac Tromethamine (Verified Allergy, Severe, 11/30/24) Tramadol (Verified Allergy, Severe, 11/30/24) Morphine and Codeine (Verified Allergy, Intermediate, 12/25/24) Ciprofloxacin (Verified Allergy, Unknown, 11/30/24) Diphenhydramine (Verified Allergy, Unknown, 05/13/14) Hydroxychloroquine (Verified Allergy, Unknown, 05/13/14) Prochlorperazine (Verified Allergy, Unknown, 05/13/14) Sulfa Antibiotics (Verified Allergy, Unknown, 05/13/14) Uncoded Allergies: ANTIEMETICS (Allergy, Severe, 11/30/24) Home Meds Active Scripts Cephalexin Monohydrate (Cephalexin) 500 Mg Cap, 500 MG PO QID for 7 Days, #28 CAP 0 Refills Prov:GUNNER HARRELL 12/25/24 Doxycycline Hyclate (DOXYCYCLINE HYCLATE) 100 Mg Tab, 1 TAB PO BID, #14 TAB Prov:ISRAEL JOSEPH MD 09/24/16 Reported Medications Pantoprazole Sodium Sesquihydr (Protonix) 40 Mg Tab, 40 MG PO DAILY, #30 TAB 03/09/25 Levothyroxine Sodium (Synthroid) 25 Mcg Tab, 1 TAB PO DAILY, #30 TAB 5 Refills 03/09/25 Fludrocortisone Acetate (Florinef) 0.1 Mg Tb, 1 TAB PO DAILY, #90 TAB 1 Refill 03/09/25 Hydromorphone Hcl (Dilaudid) 2 Mg Tab, 4 MG PO Q3HR PRN for PAIN SCALE 7 THRU 10, TAB 03/09/25 Current Medications Current Medications Medications (Trade) Dose Ordered Sig/Emerson Route PRN Reason Start Time Stop Time Status Last Admin Cephalexin (Keflex Capsule) 500 mg Q6HR PO 03/11/25 12:00 03/11/25 23:36 Sucralfate (Carafate Susp) 1 gm BID@0600,2200 PO 03/12/25 22:00 UNV Review of Systems Patient seen and examined at bedside Reported nausea or vomiting and [id number] abdominal pain Tolerating diet well without any worsening of abdominal pain Denies hematochezia, hematemesis, melena H&H is stable Vital Signs Vital Signs Date Time Temp Pulse Resp B/P (MAP) Pulse Ox O2 Delivery O2 Flow Rate FiO2 03/12/25 08:50 98.4 65 18 130/75 (93) 100 98.4 03/11/25 20:00 Room Air* 0 21 Physical Exam Gen - no pallor, no scleral icterus Skin - Patients skin is warm and dry. HEENT - normocephalic, atraumatic, dry mucous membranes. Neck - supple, no lymphadenopathy Pulmonary - B/L clear breath sounds cardiovascular - regular S1,S2 heard GI - soft nontender abdomen. Bowel sounds normoactive. Neurological - Patient is alert and oriented x4. No motor or sensory weakness Labs/Diagnostic Data Labs Test 03/12/25 04:50 03/09/25 04:47 03/07/25 11:30 Range/Units White Blood Count 6.4 # 4.4-10.8 10^3/uL Red Blood Count 4.90 4.0-5.20 10^6/uL Hemoglobin 13.3 12.2-16.2 g/dL Hematocrit 39.9 36.0-46.0 % Mean Corpuscular Volume 81.5 80.0-100.0 fL Mean Corpuscular Hemoglobin 27.1 L 28.0-32.0 pg Mean Corpuscular Hemoglobin Concent 33.2 32.0-36.0 g/dL Red Cell Distribution Width 15.5 H 11.8-14.3 % Platelet Count 203 140-450 10^3/uL Mean Platelet Volume 7.2 6.9-10.8 fL Neutrophils (%) (Auto) 62.0 37.0-80.0 % Lymphocytes (%) (Auto) 23.2 10.0-50.0 % Monocytes (%) (Auto) 10.6 0.0-12.0 % Eosinophils (%) (Auto) 3.8 0.0-7.0 % Basophils (%) (Auto) 0.4 0.0-2.0 % Neutrophils # (Auto) 3.9 1.6-8.6 10 ^3/uL Lymphocytes # (Auto) 1.5 0.4-5.4 10 ^3/uL Monocytes # (Auto) 0.7 0-1.3 10 ^3/uL Eosinophils # (Auto) 0.2 0-0.8 10 ^3/uL Basophils # (Auto) 0 0-0.2 10 ^3/uL Nucleated Red Blood Cells 0.1 % Sodium Level 142 136-145 mmol/L Potassium Level 3.9 3.5-5.1 mmol/L Chloride Level 106 98-107 mmol/L Carbon Dioxide Level 27 20-31 mmol/L Anion Gap 9 5-15 Blood Urea Nitrogen 8 L 9-23 mg/dL Creatinine 0.66 0.550-1.02 mg/dL Glomerular Filtration Rate Calc 109 >90 mL/min BUN/Creatinine Ratio 12.1 10.0-20.0 Serum Glucose 87 74-106 mg/dL Calcium Level 9.1 8.7-10.4 mg/dL Total Bilirubin 0.5 0.2-1.0 mg/dL Aspartate Amino Transferase (AST) 13 13-40 U/L Alanine Aminotransferase (ALT) < 9 7-40 U/L Alkaline Phosphatase 49 46-116 U/L Total Protein 7.1 5.7-8.2 g/dL Albumin 3.9 3.2-4.8 g/dL Erythrocyte Sedimentation Rate 15 0-20 mm/hr C-Reactive Protein High Sensitivity 1.99 H <1.0 mg/dL Urine Color Red H Yellow Urine Clarity Cloudy H Clear Urine pH 7.0 5.0-9.0 Urine Specific [place] 1.020 1.001-1.035 Urine Protein 2+ H Negative Urine Ketones Negative Negative Urine Blood 3+ H Negative /uL Urine Nitrite Negative Negative Urine Bilirubin Negative Negative Urine Urobilinogen Normal Negative mg/dL Urine Leukocyte Esterase Trace Negative /uL Urine RBC 5633 0 - 4 /hpf Urine Microscopic WBC 0-5 /HPF Urine Squamous Epithelial Cells Few <5 /hpf Urine Bacteria None seen None Seen /hpf Urine Glucose Normal Normal mg/dL Urine Opiates Screen Pos NEGATIVE Urine Fentanyl Screen Neg NEGATIVE Urine Barbiturates Screen Neg NEGATIVE Urine Phencyclidine Screen Neg NEGATIVE Urine Amphetamines Screen Neg NEGATIVE Urine Benzodiazepines Screen Neg NEGATIVE Urine Cocaine Screen Neg NEGATIVE Urine Cannabinoids Screen Neg NEGATIVE Microbiology Date/Time Source Procedure Growth Status 03/07/25 11:30 Voided Urine Urine Culture - Final Complete Assessment UTI Hematuria Acute on chronic gastritis GERD Intractable nausea vomiting Constipation likely narcotic induced Plan - continue on Protonix - Carafate b.i.d. - tolerating diet well, continue - since the patient reported to have a upper endoscopy and colonoscopy about an year ago at [facility], we will continue conservative management with the IV Protonix - MiraLax daily Plan discussed with Dr. Amor Plan discussed with: Patient HANY SOLO RESIDENT Mar 12, 2025 11:32
[2025-03-12 13:00] VITALS: BP 130/83; PULSE 75; RESP 17; TEMP 98.9; O2SAT 97
[2025-03-12 20:00] VITALS: PULSE 92; RESP 16; O2SAT 98
[2025-03-12 21:00] VITALS: BP 124/81; PULSE 92; RESP 17; TEMP 98.1; O2SAT 94
[2025-03-12] MEDS: SUCRALFATE 1 GM/10 ML ORAL SUSP PO SCH (22:49)
[2025-03-13 01:00] VITALS: BP 126/80; PULSE 69; RESP 17; TEMP 97.5; O2SAT 100
[2025-03-13 05:00] VITALS: BP 137/77; PULSE 66; RESP 17; TEMP 97.9; O2SAT 99
[2025-03-13 07:08] LABS: Hemoglobin 12.9 g/dL (12.2-16.2); Mean Corpuscular Hemoglobin 26.7 pg (28.0-32.0); Nucleated Red Blood Cells % 0.1 %
[2025-03-13 07:12] LABS: Hematocrit 39.4 % (36.0-46.0); Mean Corpuscular Volume 81.3 fL (80.0-100.0)
[2025-03-13 07:34] LABS: Alkaline Phosphatase 53 U/L (46-116); Anion Gap 8 (5-15); BUN/Creatinine Ratio 12.7 (10.0-20.0); Calcium 8.9 mg/dL (8.7-10.4); Carbon Dioxide 29 mmol/L (20-31); Chloride 106 mmol/L (98-107); Glucose 88 mg/dL (74-106); Potassium 3.6 mmol/L (3.5-5.1); Sodium 143 mmol/L (136-145); Total Protein 7.4 g/dL (5.7-8.2)
[2025-03-13 07:35] LABS: Albumin 4.1 g/dL (3.2-4.8)
[2025-03-13 07:36] LABS: Bilirubin, Total 0.5 mg/dL (0.2-1.0)
[2025-03-13 07:37] LABS: Alanine Aminotransferase < 9 U/L (7-40); Blood Urea Nitrogen 9 mg/dL (9-23)
[2025-03-13 08:00] VITALS: PULSE 89; RESP 16; O2SAT 98
--- NOTE | 2025-03-13 08:45 | DVHPN2 ---
Reviewed: Care Plan, H&P, Labs, Medications, Previous Orders, Radiology Changes from previous H/P or p: No Changes Objective Vitals Vital Signs Date Time Temp Pulse Resp B/P (MAP) Pulse Ox O2 Delivery O2 Flow Rate FiO2 03/13/25 05:00 97.9 66 17 137/77 (97) 99 97.9 03/12/25 20:00 Room Air* 0 21 Intake/Output Intake and Output 03/13/25 07:00 Intake Total 975 ml Balance 975 ml Intake Oral 975 ml # Voids 2 # Bowel Movements 1 Medications Current Medications Medications Dose Ordered Sig/Emerson Route Start Time Stop Time Status Last Admin Dose Admin Sodium Chloride 1,000 ml @ 120 mls/hr Q8H20M IV 03/07/25 16:15 03/13/25 03:18 120 MLS/HR Ondansetron HCl 4 mg Q4HP PRN IV 03/07/25 16:15 03/13/25 03:13 4 MG Acetaminophen 650 mg Q6HP PRN PO 03/07/25 16:15 Hold Morphine Sulfate 2 mg Q4HPRN PRN IV 03/07/25 16:15 Hold Nitroglycerin 0.4 mg Q5MINP PRN SL 03/07/25 16:15 Morphine Sulfate 2 mg Q30M PRN IV 03/07/25 16:15 Hold Lidocaine 1 patch DAILY TOP 03/08/25 10:00 Pantoprazole Sodium 40 mg DAILY IV 03/09/25 10:00 03/12/25 09:39 40 MG Hydromorphone HCl 4 mg Q4HP PRN PO 03/09/25 11:00 03/13/25 03:14 4 MG Piperacillin Sod/ Tazobactam Sod 100 ml @ 25 mls/hr Q8H IV 03/10/25 16:45 Hold 03/11/25 08:33 25 MLS/HR Cephalexin 500 mg Q6HR PO 03/11/25 12:00 03/11/25 23:36 500 MG Sucralfate 1 gm BID@0600,2200 PO 03/12/25 22:00 03/13/25 06:11 1 GM Polyethylene Glycol 17 gm DAILY PO 03/13/25 10:00 Laboratory Results Laboratory Tests 03/13/25 06:06 Chemistry Test 03/13/25 06:06 Albumin 4.1 g/dL (3.2-4.8) Calcium Level 8.9 mg/dL (8.7-10.4) Total Protein 7.4 g/dL (5.7-8.2) LFT Test 03/13/25 06:06 Alanine Aminotransferase (ALT) < 9 U/L (7-40) Alkaline Phosphatase 53 U/L (46-116) Aspartate Amino Transferase (AST) 12 U/L (13-40) L Total Bilirubin 0.5 mg/dL (0.2-1.0) Urinalysis Test 03/07/25 11:30 Urine Color Red (Yellow) H Urine Clarity Cloudy (Clear) H Urine pH 7.0 (5.0-9.0) Urine Specific [place] 1.020 (1.001-1.035) Urine Protein 2+ (Negative) H Urine Ketones Negative (Negative) Urine Blood 3+ /uL (Negative) H Urine Nitrite Negative (Negative) Urine Bilirubin Negative (Negative) Urine Urobilinogen Normal mg/dL (Negative) Urine Leukocyte Esterase Trace /uL (Negative) Urine RBC 5633 /hpf (0 - 4) Urine Microscopic WBC /HPF (0-5) Urine Squamous Epithelial Cells Few /hpf (<5) Urine Bacteria None seen /hpf (None Seen) Urine Glucose Normal mg/dL (Normal) Microbiology Microbiology Date/Time Source Procedure Growth Status 03/07/25 11:30 Voided Urine Urine Culture - Final Complete Labs and/or images reviewed: Labs reviewed by me, Image(s) reviewed by me Assessment/Plan Assessment/Plan # intractable abdominal pain secondary to possible renal stone #Complicated Urinary tract infection urine cultures mixed,, continue Zosyn, add Keflex 500 mg p.o. q.6 hours as the patient wants to try oral antibiotic before going home #Hematuria, likely due to UTI #Lupus nephritis, possible #Nephrolithiasis, ruled out # Right leg cellulitis #History of [place]'s disease #History of lupus #History of MS #History of fibromyalgia # moderate obesity BMI of 32; counseling # chronic pain syndrome under the management of pain management doctor., patient takes Dilaudid at home # Multiple allergies # intractable nausea and vomiting: Consult for GI Dr. Loki Amor, placed on pantoprazole Carafate and MiraLax, EGD and colonoscopy one year ago at [facility] was normal RN Arelis at bedside Discussed with the patient about discharge plan and she agreed Plan discussed with: Patient My Orders Orders - DELBERT CHIRINOS MD Procedure Category Date Status Time * [facility] Senior Clinical Research Scientist CONS 03/12/25 Transmitted 09:22 Date of Service: Mar 13, 2025 Billing Provider: DELBERT CHIRINOS MD Common Visit Codes: [id number] INP/OBS CARE(HIGH) DELBERT CHIRINOS MD Mar 13, 2025 08:45
[2025-03-13] MEDS ORDERED: PANT40T PO (08:47)
[2025-03-13] MEDS ORDERED: POLY335015 PO (08:47)
[2025-03-13] MEDS ORDERED: CEPH500C PO (08:47)
[2025-03-13] MEDS ORDERED: SUCR1TAB31 PO (08:47)
--- NOTE | 2025-03-13 09:10 | DVHDS2 ---
Discharge Summary Date of Admission Mar 07, 2025 at 16:13 Date of Discharge: Mar 13, 2025 Admitting Diagnosis Left flank pain and left lower abdominal pain Wounds: None Labs/Diagnostic Data: Laboratory Results Test 03/13/25 06:06 03/09/25 04:47 03/07/25 11:30 White Blood Count 5.9 10^3/uL (4.4-10.8) Red Blood Count 4.85 10^6/uL (4.0-5.20) Hemoglobin 12.9 g/dL (12.2-16.2) Hematocrit 39.4 % (36.0-46.0) Mean Corpuscular Volume 81.3 fL (80.0-100.0) Mean Corpuscular Hemoglobin 26.7 pg (28.0-32.0) Mean Corpuscular Hemoglobin Concent 32.8 g/dL (32.0-36.0) Red Cell Distribution Width 15.2 % (11.8-14.3) Platelet Count 223 10^3/uL (140-450) Mean Platelet Volume 7.2 fL (6.9-10.8) Neutrophils (%) (Auto) 66.6 % (37.0-80.0) Lymphocytes (%) (Auto) 20.4 % (10.0-50.0) Monocytes (%) (Auto) 7.9 % (0.0-12.0) Eosinophils (%) (Auto) 4.7 % (0.0-7.0) Basophils (%) (Auto) 0.4 % (0.0-2.0) Neutrophils # (Auto) 3.9 10 ^3/uL (1.6-8.6) Lymphocytes # (Auto) 1.2 10 ^3/uL (0.4-5.4) Monocytes # (Auto) 0.5 10 ^3/uL (0-1.3) Eosinophils # (Auto) 0.3 10 ^3/uL (0-0.8) Basophils # (Auto) 0 10 ^3/uL (0-0.2) Nucleated Red Blood Cells 0.1 % Sodium Level 143 mmol/L (136-145) Potassium Level 3.6 mmol/L (3.5-5.1) Chloride Level 106 mmol/L (98-107) Carbon Dioxide Level 29 mmol/L (20-31) Anion Gap 8 (5-15) Blood Urea Nitrogen 9 mg/dL (9-23) Creatinine 0.71 mg/dL (0.550-1.02) Glomerular Filtration Rate Calc 106 mL/min (>90) BUN/Creatinine Ratio 12.7 (10.0-20.0) Serum Glucose 88 mg/dL (74-106) Calcium Level 8.9 mg/dL (8.7-10.4) Total Bilirubin 0.5 mg/dL (0.2-1.0) Aspartate Amino Transferase (AST) 12 U/L (13-40) Alanine Aminotransferase (ALT) < 9 U/L (7-40) Alkaline Phosphatase 53 U/L (46-116) Total Protein 7.4 g/dL (5.7-8.2) Albumin 4.1 g/dL (3.2-4.8) Erythrocyte Sedimentation Rate 15 mm/hr (0-20) C-Reactive Protein High Sensitivity 1.99 mg/dL (<1.0) Urine Color Red (Yellow) Urine Clarity Cloudy (Clear) Urine pH 7.0 (5.0-9.0) Urine Specific [place] 1.020 (1.001-1.035) Urine Protein 2+ (Negative) Urine Ketones Negative (Negative) Urine Blood 3+ /uL (Negative) Urine Nitrite Negative (Negative) Urine Bilirubin Negative (Negative) Urine Urobilinogen Normal mg/dL (Negative) Urine Leukocyte Esterase Trace /uL (Negative) Urine RBC 5633 /hpf (0 - 4) Urine Microscopic WBC /HPF (0-5) Urine Squamous Epithelial Cells Few /hpf (<5) Urine Bacteria None seen /hpf (None Seen) Urine Glucose Normal mg/dL (Normal) Urine Opiates Screen Pos (NEGATIVE) Urine Fentanyl Screen Neg (NEGATIVE) Urine Barbiturates Screen Neg (NEGATIVE) Urine Phencyclidine Screen Neg (NEGATIVE) Urine Amphetamines Screen Neg (NEGATIVE) Urine Benzodiazepines Screen Neg (NEGATIVE) Urine Cocaine Screen Neg (NEGATIVE) Urine Cannabinoids Screen Neg (NEGATIVE) Other Laboratory Tests 03/13/25 06:06 Brief Hx & Hospital Course: 45-year-old female with multiple medical problems including lupus [place]'s disease MS fibromyalgia chronic pain syndrome under pain management Dr came in complaining of left flank pain abdominal pain nausea vomiting and lower abdominal pain. Patient had UTI treated with the Zosyn converted to Keflex. Also had some hematuria. The patient continues to complaining of generalized pain and was demanding Dilaudid throughout her stay. Patient continues to complaining of nausea vomiting seen by GI Dr. Loki Amor advised pantoprazole Carafate and MiraLax. EGD and colonoscopy at [facility] one year ago was normal. Patient feels better and being discharged home. Medications transmitted to the pharmacy she will continue all her previous home medications follow up with the primary Dr in pain management Dr at the time of discharge she has no vomiting and abdominal pain resolved and stable vital signs JIMMY Infante at bedside during the time of discussion of discharge plan Consults/Reason for consult GI Dr. Loki Amor Operations or Procedures CT abdomen pelvis without contrast Condition at Discharge: Fair Final Diagnosis/Problems List # intractable abdominal pain secondary to possible renal stone #Complicated Urinary tract infection urine cultures mixed,, continue Zosyn, add Keflex 500 mg p.o. q.6 hours as the patient wants to try oral antibiotic before going home #Hematuria, likely due to UTI #Lupus nephritis, possible #Nephrolithiasis, ruled out # Right leg cellulitis #History of [place]'s disease #History of lupus #History of MS #History of fibromyalgia # moderate obesity BMI of 32; counseling # chronic pain syndrome under the management of pain management doctor., patient takes Dilaudid at home # Multiple allergies # intractable nausea and vomiting: Consult for GI Dr. Loki Amor, placed on pantoprazole Carafate and MiraLax, EGD and colonoscopy one year ago at [facility] was normal Discharge Disposition: Home Discharge Instruct/Medications Diet: Cardiac 2g Na,low cholest Activity: No Restrictions, As Tolerated Follow Up/Referral: Resume all previous home medications Follow up with the primary Dr and pain management Dr Medications: Pantoprazole Carafate MiraLax Keflex Transmitted to pharmacy Scheduled Cephalexin Monohydrate (Cephalexin), 500 MG PO QID Cephalexin Monohydrate (Cephalexin), 1 CAP PO QID Doxycycline Hyclate (Doxycycline Hyclate), 1 TAB PO BID Fludrocortisone Acetate (Florinef), 1 TAB PO DAILY, (Reported) Levothyroxine Sodium (Synthroid), 1 TAB PO DAILY, (Reported) Pantoprazole Sodium Sesquihydr (Protonix), 40 MG PO DAILY, (Reported) Pantoprazole Sodium Sesquihydr (Pantoprazole Sodium), 40 MG PO BID Sucralfate (Carafate), 1 GM PO QID Scheduled PRN Hydromorphone Hcl (Dilaudid), 4 MG PO Q3HR PRN for PAIN SCALE 7 THRU 10, (Reported) Polyethylene Glycol 3350 (Miralax), 17 GM PO DAILY PRN 39 (Time taken for discharge summary 39 minutes) Discharge Statement: "Patient was advised to return to the ER or call 911 if any headaches, dizziness, shortness of breath, chest pain, abdominal pain, bleeding, fevers, or worsening of medical condition. Patient was counseled about treatment plan, medications, possible side effects, patientverbalized understanding. All questions were answered to the best of my ability. This discharge took greater then 30 minutes in planning, reviewing documentation, counseling the patient, and discussing with other team members." ASSESSMENT ASSESSMENT Hospital Course Improved Assessment # intractable abdominal pain secondary to possible renal stone #Complicated Urinary tract infection urine cultures mixed,, continue Zosyn, add Keflex 500 mg p.o. q.6 hours as the patient wants to try oral antibiotic before going home #Hematuria, likely due to UTI #Lupus nephritis, possible #Nephrolithiasis, ruled out # Right leg cellulitis #History of [place]'s disease #History of lupus #History of MS #History of fibromyalgia # moderate obesity BMI of 32; counseling # chronic pain syndrome under the management of pain management doctor., patient takes Dilaudid at home # Multiple allergies # intractable nausea and vomiting: Consult for GI Dr. Loki Amor, placed on pantoprazole Carafate and MiraLax, EGD and colonoscopy one year ago at [facility] was normal Date of Service: Mar 13, 2025 Billing Provider: DELBERT CHIRINOS MD Common Visit Codes: [id number]/[id number] DISCH DAY >30min DELBERT CHIRINOS MD Mar 13, 2025 09:10
[2025-03-13] MEDS: POLYETHYLENE GLYCOL 17 GM PWDR PO SCH (10:00)
[2025-03-13 10:25] VITALS: TEMP 36.6
== END 2025-03-13 11:30 | disposition home or self-care (01) | DRG 463 ==
LOC: ER 08:47 → OVERFLOW 16:13 → CENTRAL 19:53
PROVIDERS: ADMIT Family Medicine; ATTEND Family Medicine
DX: N30.01 Acute cystitis with hematuria (principal); L03.115 Cellulitis of right lower limb; E27.1 Primary adrenocortical insufficiency; L03.116 Cellulitis of left lower limb; M32.14 Glomerular disease in systemic lupus erythematosus; J45.909 Unspecified asthma, uncomplicated; F11.20 Opioid dependence, uncomplicated; E66.811 Obesity, class 1; G89.4 Chronic pain syndrome; K29.50 Unspecified chronic gastritis without bleeding; K29.00 Acute gastritis without bleeding; K59.00 Constipation, unspecified; Z87.11 Personal history of peptic ulcer disease; Z87.442 Personal history of urinary calculi; Z79.2 Long term (current) use of antibiotics; Z79.899 Other long term (current) drug therapy; Z90.49 Acquired absence of other specified parts of digestive tract; Z68.32 Body mass index [BMI] 32.0-32.9, adult
CPT/HCPCS: 36415; 74176; 76775; 80048; 80053; 80307; 81001; 85025; 85652; 86141; 87086; 96365; 96368; G0378; J2405; J2470; J2543; J3490